=== PATIENT | male | born 1955 | race Caucasian/White ===

== ENCOUNTER 2023-11-23 14:36 | Inpatient (IN) | payer MEDICARE, SELFPAY ==
--- NOTE | ~2023-11-23 | IR_ITS ---
EXAMINATION: XR BILIARY DRAINAGE CLINICAL INFORMATION: Choledocholithiasis. Biliary obstruction. Gram-negative bacteremia COMPARISON: CT abdomen and pelvis 11/23/2023. MRCP 11/24/2023 Medications for conscious sedation: The patient received intravenous conscious sedation under my direct supervision. A registered nurse monitored the patient and the patient's vital signs throughout the procedure. The total sedation was 50 minutes utilizing fentanyl and Versed. DOSE: 204 MGY, 10.4 MIN FT TECHNIQUE/FINDINGS: Informed consent was obtained following a discussion of risks and benefits of the procedure with the patient. The patient was placed supine the fluoroscopy table in the anterior and right lateral abdomen was sterilely prepped and draped. Preliminary ultrasound demonstrates moderate intrahepatic biliary ductal dilatation. A site on the anterior abdominal wall just below the xiphoid was marked. Following the administration of 1% lidocaine for local anesthesia, a left peripheral biliary duct was accessed with a single stick using a 21-gauge needle under direct ultrasound guidance. Cholangiogram demonstrates moderate intrahepatic biliary ductal dilatation with severe dilatation of the common bile duct. A filling defect is seen in concordance with known stone. The needle was exchanged for a transitional dilator over a 0.018 guidewire. The inner dilators and guidewire were removed. A 4 [place] hockey-stick catheter and Glidewire were negotiated down the common bile duct, across the ampulla and into the duodenum. Position was confirmed with contrast injection. A 0.035 Amplatz wire was inserted. After dilating the tract, an 8 [place] internal-external biliary drainage catheter was placed. The pigtails formed in the duodenum with sideholes extending across the common bile duct to the level of the confluence. Contrast injection confirms satisfactory positioning of the tube. The external portion of the tube was secured with a 3-0 suture. The catheter was maintained to gravity bag drainage. A sterile dressing was applied. Patient tolerated the procedure well with no immediate complications. IR/IR drain peritoneum IMPRESSION: Cholangiogram demonstrating moderate-severe intra-extrahepatic biliary ductal dilatation secondary to stone in concordance with findings on recent cross-sectional imaging. Successful placement of an 8 [place] internal-external biliary drainage catheter. Catheter is currently maintained to gravity bag drainage. In the near future (following resolution of elevated bilirubin and bacteremia), a capping trial may be attempted. Patient will return to IR in approximately 2 weeks for staged intervention.
--- NOTE | ~2023-11-23 | FL_ITS ---
EXAMINATION: XR FLUOROSCOPY WITH IMAGES CLINICAL INFORMATION: ERCP. COMPARISON: MRI/MRCP dated 11/24/2023. TECHNIQUE: Fluoroscopy Supervised By: Dr. Patsy Melendrez. Fluoroscopy Time: 0.3. Cumulative Dose: 5.77 mGy. DAP: 1.57 Gycm2. Images: 1. FINDINGS: The submitted image shows an endoscope, injection catheter and guidewire. FL/FL guidance in OR IMPRESSION: Intraoperative fluoroscopic guidance is provided during ERCP. Please see the patient's Operative Report for full procedural details.
--- NOTE | ~2023-11-23 | CT_ITS ---
EXAMINATION: CT ABDOMEN AND PELVIS WITH CONTRAST CLINICAL INFORMATION: RUQ, R flank pain rule out biliary disease, ureter COMPARISON: None available. TECHNIQUE: Multidetector volumetric images were obtained from the superior aspect of the liver through the pubic symphysis following administration 85 mL of Omnipaque 350 intravenous contrast. Sagittal and coronal reformatted images were obtained on the technologist's workstation. Oral contrast: No This CT examination was performed using dose optimization techniques as appropriate, variously including the following: *Automated exposure control *Adjustment of mA and/or kV according to patient size (this includes techniques or standardized protocols for targeted exams where dose is matched to indication/reason for exam; i.e. extremities or head) *Use of iterative reconstruction technique DLP: 518 mGy-cm FINDINGS: LUNG BASES: Left basilar atelectasis. No pleural effusions or consolidations. LIVER, GALLBLADDER, AND BILIARY TREE: The liver is enlarged at 21.3 cm in greatest length. There is marked intrahepatic biliary dilatation and dilatation of the common bile duct measuring 2.5 cm. Lobular soft tissue mass seen in the distal common bile duct measuring 2.4 x 1.3 cm. The gallbladder is distended with wall thickening and some minimal pericholecystic fluid. No gallstones are seen. PANCREAS: Unremarkable. SPLEEN: Spleen is enlarged at 14.3 cm with multiple calcified granulomas ADRENAL GLANDS: Unremarkable. KIDNEYS AND URETERS: Bilateral small benign Bosniak class I renal cysts are noted which require no additional imaging or follow-up. No solid renal masses are seen. The right kidney appears unremarkable. There are appearances suggestive of a left UPJ obstruction with a dilated extrarenal pelvis and associated caliectasis. No renal calculi. BLADDER: Unremarkable. GASTROINTESTINAL TRACT: The small and large bowel are unremarkable aside from scattered colonic diverticula without diverticulitis.. The appendix is not seen but there is no evidence of appendicitis evidence of appendicitis.. ABDOMINAL WALL: No significant hernia is appreciated. LYMPH NODES: No retroperitoneal lymphadenopathy. VASCULAR: Unremarkable. PELVIC VISCERA: There is moderate BPH. Seminal vesicles appear normal. OSSEOUS STRUCTURES: Mild degenerative changes present throughout the spine. There is a compression fracture involving the superior endplate of L2. 3 screws are present through the right femoral neck. CT/CT abdomen pelvis w IV con IMPRESSION: 1. Marked intrahepatic and extrahepatic biliary dilatation with a 2.4 cm soft tissue mass in the distal common bile duct. ERCP is recommended for further evaluation. 2. Distended gallbladder with wall thickening and minimal pericholecystic fluid. 3. Incidental note made of hepatosplenomegaly, colonic diverticulosis, BPH and left UPJ obstruction. Fleischner guidelines were followed.
--- NOTE | ~2023-11-23 | MR_ITS ---
EXAMINATION: MR ABDOMEN WITHOUT CONTRAST CLINICAL INFORMATION: Common bile duct dilatation. Soft tissue mass at distal common bile duct. COMPARISON: CT abdomen from 11/23/2023. TECHNIQUE: Multiplanar, multisequence MR imaging examination of the abdomen is performed on a high-field magnet. This examination includes use of heavily T2-weighted MRCP sequences. FINDINGS: LUNG BASES: No pulmonary consolidation or pleural effusion. HEPATOBILIARY: Liver has normal size and contour. No evidence of steatosis or cirrhosis. The intrahepatic ducts are dilated. Also, there appears to be periportal edema. There is layering of sludge/debris within dilated ducts. Mild gallbladder hydrops and diffuse edematous thickening of the gallbladder wall. Sludge is seen within the gallbladder lumen. Common bile duct measures up to 2.3 cm transverse diameter and contains a 1.6 cm stone within its lumen. No evidence of an obstructing ampullary mass. A relatively abrupt transition from the dilated common duct to the ampulla raises suspicion for ampullary stenosis. PANCREAS: Mildly atrophied. No pancreatic parenchymal edema or peripancreatic fluid collection. No pancreatic divisum. The pancreatic duct is normal, < 0.3 cm diameter. SPLEEN: Mild splenomegaly. 13.5 cm maximum dimension.. Calcified granulomas seen on CT imaging are not visible on this MR imaging exam. ADRENAL GLANDS: Normal. KIDNEYS: Kidneys are normal in size. There is asymmetric dilatation of the left renal collecting system. The proximal ureter is unremarkable. Findings could represent a partial ureteropelvic junction obstruction. BOWEL AND PERITONEUM: No dilated bowel loops. A duodenal diverticulum is seen adjacent to the pancreatic head. Trace amount of abdominal free fluid is noted. There is no organized collection. VASCULATURE: Atherosclerotic abdominal aorta is normal in size. Inferior vena cava is normal for noncontrast imaging examination. LYMPH NODES: No pathologic sized lymph nodes in the abdomen. SKELETAL: No acute or suspicious osseous abnormality. Multilevel degenerative arthropathy of the visualized spine. Chronic mild height loss of the L2 vertebral body. MR/MR MRCP IMPRESSION: * The common duct and intrahepatic ducts are dilated. This no evidence of an obstructing mass of the pancreatic head or ampullary region. Therefore, consider possibility of papillary stenosis. * Choledocholithiasis is noted. * There is nonspecific gallbladder wall edema as well as periportal edema. Differential diagnostic considerations would include cholecystitis, cholangitis and/or hepatitis.
[2023-11-23 15:18] VITALS: BP 131/69; BP 150/80; PULSE 109; PULSE 120; RESP 18; O2SAT 98
--- NOTE | 2023-11-23 16:00 | ED.ABDPAIN ---
HPI - Abdominal Pain General Chief Complaint: Abdominal Pain Stated Complaint: HIGH BP OF 200 SYS FROM SNF, NOW 150/80 PER EMS Time Seen by Provider: 11/23/23 15:50 Source: patient Mode of arrival: EMS Limitations: no limitations History of Present Illness HPI narrative: 68-year-old male with status post right hip fracture/repair 1 month prior currently residing at custodial facility for rehab who presents emergency department for evaluation of right upper quadrant , right flank pain and an elevated systolic blood pressure in the 200 range. Patient states that before breakfast he started to get right-sided abdominal pain. He points to his right upper quadrant when asked to localize the pain. He states the pain does radiate to his back. He states the pain is a constant pain which waxes and wanes in intensity and varies from 3/10 to 6/10. Patient had associated chills and nausea. He denied sore throat, cough, chest pain, shortness of breath, vomiting, diarrhea, frequency, urgency or dysuria. He states this is 1st episode of this type of pain. Past surgical history does include appendectomy and recent right hip fracture status post repair Related Data Allergies Allergy/AdvReac Type Severity Reaction Status Date / Time No Known Allergies Allergy Verified 11/23/23 15:21 Review of Systems Review of Systems Yes all other systems are reviewed and are negative COUNT INCLUDES THE [facility] Past Medical History COUNT INCLUDES THE [facility] Narrative: Social history: He is a former smoker and stop smoking 2 years prior. The patient states he does not drink alcohol or use drugs. Social History Social History Alcohol intake: former Smoked in Last 30 Days: No Use of substances other than those prescribed or required for medical reasons: No Advance Directives: No Advance Directives Information Provided: No Physical Exam ED Vital Signs: Vital Signs - 24 hr 11/23/23 15:18 11/23/23 16:17 11/23/23 18:00 Temperature 98.8 F 98.9 F Pulse Rate 109 H 105 H 93 Respiratory Rate 18 16 18 Blood Pressure 131/69 142/78 H 103/64 Pulse Oximetry 98 96 98 Oxygen Delivery Method Room Air Room Air Room Air 11/23/23 19:56 Temperature 98.0 F Pulse Rate 84 Respiratory Rate 16 Blood Pressure 97/63 Pulse Oximetry 95 Oxygen Delivery Method Room Air BMI result Body Mass Index 20.0 Vital signs revealed an elevated heart rate of 109 otherwise were unremarkable. Exam: General: Awake, in [id number] distress secondary to his abdominal pain. Head: Normocephalic, atraumatic EENT: PERRL, Lids normal, sclera normal, conjunctiva normal, nose normal , ears normal, throat without erythema or exudates Neck: Supple, no adenopathy Lung: breath sounds symmetric, no wheezing, rales or rhonchi Chest: symmetric movement, nontender Heart: regular rate and rhythm, normal S1, S2 no murmurs or rubs Abdomen: Moderate right upper quadrant tenderness, negative Hernandes sign, [id number] epigastric tenderness, mild diffuse tenderness. Normoactive bowel sounds. No voluntary or involuntary guarding, no rebound Back: no vertebral tenderness, mild to moderate right CVA tenderness Extremities: no deformities, moves all extremities symmetrically Neuro: Awake, alert, oriented, normal speech, cranial nerves intact, moves all extremities symmetrically Psych: Pleasant, cooperative Medical Decision Making Medical Decision Making MDM Narrative: 68-year-old male with a history of appendectomy, right hip fracture status post repair 1 month prior currently in his custodial facility who presents to emergency department for evaluation of right upper quadrant pain and right flank pain which began this morning, pain is been constant, waxing and waning intensity from 3/10 to 6/10 associated with chills and nausea. This is the patient's 1st episode of this type of pain. Vital signs did reveal an elevated heart rate otherwise unremarkable. Physical examination did reveal mild diffuse abdominal tenderness with increased tenderness in the right upper quadrant epigastric area with a negative Hernandes sign. Differential diagnosis: ?Includes but is not limited to cholecystitis, biliary colic, renal colic, ureteral stone, pancreatitis, anemia, electrolyte abnormalities Following evaluation was ordered: CBC, CMP, lactic acid, PTT, troponin, urinalysis, CT scan of the abdomen pelvis with IV contrast Patient was initially treated with the following: Toradol 15 mg IV, Zofran 4 mg IV Course: 19:07 Patient's pain initially improved with the above treatment however he required a dose of morphine 4 mg IV Patient's laboratory evaluation was consistent with biliary obstruction and concerning for possible infection given 20% bands, therefore he was given Zosyn 4.[address] scan abdomen pelvis with IV contrast revealed marked intrahepatic and extrahepatic biliary dilatation with a 2.4 cm soft tissue mass in the distal common bile duct. Distended gallbladder with wall thickening and minimal pericholecystic fluid. There was also several incidental findings: hepatosplenomegaly, colonic diverticulosis, BPH and left UPJ obstruction. I did discuss the patient's presentation over tiger text with the on-call grave cleaner, Dr. Mancuso who recommended MRCP, keeping the patient NPO after midnight for ERCP I did discuss the patient's presentation over tiger text with the on-call surgeon, Dr. Tillman. He suspects that the patient may have cholangiocarcinoma and he agrees with Dr. Mancuso's is recommendations. He states that he will follow the patient as well. I did discuss the patient's presentation over tiger text with the covering hospitalist, Dr. Elaine and she accepted the patient onto the hospitalist service. Please note, the patient's elevated bilirubin is not caused by infection but is related to biliary obstructions Admission/Observation Consideration of admission/observation: Escalation of care including admission/observation considered Consult Healthcare Provider Management of the patient was discussed with: Hospitalist and Banquet Line Cook (Surgeon on-call, Dr. Tillman, GI doctor on-call Dr. LIVE) Lab Data MDM Lab Attestation statement: I reviewed the patient's lab results. My interpretation patient's laboratory evaluation is as follows: Elevated WBC 26981 with 75% neutrophils and 20% bands. Elevated glucose 123 elevated AST, ALT and alkaline phosphatase at 260, 142 and 818. Total bili was elevated 3.7. Direct bilirubin was elevated 3.0. Lipase was normal 11/23/23 16:09 11/23/23 16:09 Labs: Lab Results 11/23/23 11/23/23 Range/Units 16:09 16:59 WBC 15.6 H (4.8-10.8) X10*3/uL RBC 4.35 L (4.60-5.80) X10*6/uL Hgb 13.7 L (14.0-18.0) g/dl Hct 40.0 L (42.0-52.0) % MCV 92.0 (80.0-98.0) fL MCH 31.5 (27.0-33.0) pg MCHC 34.3 (31.0-36.0) g/dl RDW 13.5 (11.0-16.0) % Plt Count 244 (160-400) X10*3/uL MPV 10.1 (9.4-12.4) fL Immature Gran % (Auto) Cancelled Neut % (Auto) Cancelled Lymph % (Auto) Cancelled [place] % (Auto) Cancelled Eos % (Auto) Cancelled Baso % (Auto) Cancelled Lymph # (Auto) Cancelled [place] # (Auto) Cancelled Eos # (Auto) Cancelled Baso # (Auto) Cancelled Abs Immat Gran (auto) Cancelled Absolute Neuts (auto) Cancelled Absolute Nucleated RBC 0.000 (0.0-0.012) X10*3/uL Nucleated RBC % (auto) 0.0 (0.0-0.2) /100WBC Neutrophils % (Manual) 75 H (45-73) % Band Neutrophils % 20 H (3-5) % Lymphocytes % (Manual) 1 L (20-40) % Monocytes % (Manual) 4 (2-11) % Abs Neuts (Manual) 14.8 H (2.0-8.3) X10*3/uL Lymphocytes # (Manual) 0.2 L (1.2-4.9) X10*3/uL Monocytes # (Manual) 0.6 (0.1-1.2) X10*3/uL Toxic Vacuolation PRESENT Platelet Estimate NORMAL (NORMAL) Plt Morphology Comment NORMAL RBC Morphology NORMAL Smear Tech's Comments MANUAL DIFF APTT 33.2 (26.0-36.8) SEC Sodium 135 (135-145) mmol/L Potassium 4.0 (3.3-5.1) mmol/L Chloride 97 (96-108) mmol/L Carbon Dioxide 25 (22-29) mmol/L Anion Gap 17 (12-20) BUN 12 (9-16) mg/dL Creatinine 0.73 (0.5-1.4) mg/dL Estim Creat Clear Calc 114.1 Estimated GFR > 60 Random Glucose 123 H (60-115) mg/dL Lactic Acid 1.7 (0.5-2.0) mmol/L Calcium 9.4 (8.4-10.2) mg/dL Total Bilirubin 3.7 H (0.0-1.0) mg/dL Direct Bilirubin 3.0 H (0.0-0.5) mg/dL AST 260 H (5-37) U/L ALT 142 H (0-40) U/L Alkaline Phosphatase 818 H (39-117) U/L Troponin I High Sens 4.7 (<3.5-35.0) ng/L Total Protein 6.7 (6.5-8.0) g/dL Albumin 3.3 L (3.5-5.0) g/dL Lipase 20 (8-78) U/L Urine Color Dark Yellow Urine Appearance Clear Urine pH 5.5 (5.0-9.0) Ur Specific [place] 1.015 (1.005-1.025) Urine Protein Negative (Neg-Trace) mg/dL Urine Glucose (UA) Negative (Negative) mg/dL Urine Ketones Negative (Negative) mg/dL Urine Blood Negative (Negative) Urine Nitrite Negative (Negative) Ur Leukocyte Esterase Trace H (Negative) Urine RBC 0-2 (0-2) /HPF Urine WBC 0-5 (0-5) /HPF Ur Squamous Epith Cells 0-2 (0-2) /HPF Urine Bacteria None Seen (None Seen) Hyaline Casts 0-2 (0-2) /LPF Independent Interpretation I performed an independent interpretation of an: EKG Radiology Impression Discussion of test interpretation with radiology: I have reviewed the radiologist's reading. Radiologist Impression: CT abdomen pelvis w IV con IMPRESSION: 1. Marked intrahepatic and extrahepatic biliary dilatation with a 2.4 cm soft tissue mass in the distal common bile duct. ERCP is recommended for further evaluation. 2. Distended gallbladder with wall thickening and minimal pericholecystic fluid. 3. Incidental note made of hepatosplenomegaly, colonic diverticulosis, BPH and left UPJ obstruction. Fleischner guidelines were followed. Dictated By: Sheldon Davidson MD Medications Administered Generic Name Dose Route Start Last Admin Trade Name Freq PRN Reason Stop Dose Admin Sodium Chloride 1,000 mls @ 80 mls/hr 11/23/23 20:45 11/23/23 20:52 Ns IVCONT 80 mls/hr .[id number] ODELL Administration Discontinued Medications Generic Name Dose Route Start Last Admin Trade Name Freq PRN Reason Stop Dose Admin Sodium Chloride 1,000 mls @ 999 mls/hr 11/23/23 16:00 11/23/23 18:06 Ns IV 11/23/23 17:00 Infused .Q1H1M STA Infusion Piperacillin Sod/Tazobactam 100 mls @ 200 mls/hr 11/23/23 17:24 11/23/23 19:36 Sod 4.5 gm/ Sodium Chloride IV 11/23/23 17:53 Infused ONCE ONE Infusion Iohexol 100 ml 11/23/23 17:06 11/23/23 17:07 Iohexol 350 Mg/Ml 100 Ml Infus..Btl IV 11/23/23 17:07 85 ml ONCE ONE Administration Ketorolac Tromethamine 15 mg 11/23/23 16:00 11/23/23 16:15 Ketorolac Tromethamine 15 Mg/Ml Vial IVPUSH 11/23/23 16:01 15 mg ONCE STA Administration Morphine Sulfate 4 mg 11/23/23 17:32 11/23/23 17:40 Morphine Sulfate 4 Mg/Ml Cartridge IVPUSH 11/23/23 17:33 4 mg ONCE STA Administration Protocol Morphine Sulfate 4 mg 11/23/23 19:58 11/23/23 20:55 Morphine Sulfate 4 Mg/Ml Cartridge IVPUSH 11/23/23 19:59 4 mg ONCE STA Administration Protocol Ondansetron HCl 4 mg 11/23/23 16:00 11/23/23 16:15 Ondansetron Hcl 4 Mg/2 Ml Vial IVPUSH 11/23/23 16:01 4 mg ONCE ONE Administration Critical Care Time Critical Care Time Critical Care Time: Yes Total Critical Care Time: 40 Attestation: Critical Care: The patient was critically ill with a high probability of imminent or life threatening deterioration. I spent greater than 30 minutes of discontinuous time evaluating the patient,delivering critical care at the bedside, discussing and evaluating pertinent data with consultants. Critical care time does not include time spent performing separately billable procedures or teaching. Total time spent performing critical care was 40 minutes. Discharge Plan Discharge Clinical Impression: Biliary disease with obstruction, Acute cholangitis Patient Disposition: Admitted As Inpatient
[2023-11-23] MEDS: 0.9 % Sodium Chloride 1,000 ML 999 ML IV (16:10)
[2023-11-23] MEDS: ondansetron HCL 4 MG/2 ML VIAL IVPUSH (16:15)
[2023-11-23] MEDS: Ketorolac Tromethamine 15 MG/ML VIAL IVPUSH (16:15)
[2023-11-23 16:17] VITALS: BP 142/78; PULSE 105; RESP 16; TEMP 37.1; O2SAT 96
[2023-11-23 16:17] LABS: Hemoglobin 13.7 g/dl (14.0-18.0); Mean Corpuscular HGB Conc 34.3 g/dl (31.0-36.0); Mean Corpuscular Hemoglobin 31.5 pg (27.0-33.0); Mean Platelet Volume 10.1 fL (9.4-12.4); Platelet Count 244 X10*3/uL (160-400); Red Blood Count 4.35 X10*6/uL (4.60-5.80); Red Cell Distribution Width 13.5 % (11.0-16.0); White Blood Count 15.6 X10*3/uL (4.8-10.8)
[2023-11-23 16:28] LABS: Lactic Acid 1.7 mmol/L (0.5-2.0)
[2023-11-23 16:34] LABS: Alanine Aminotransferase 142 U/L (0-40); Albumin Level 3.3 g/dL (3.5-5.0); Alkaline Phosphatase 818 U/L (39-117); Anion Gap 17 (12-20); Aspartate Amino Transferase 260 U/L (5-37); Bilirubin Total 3.7 mg/dL (0.0-1.0); Blood Urea Nitrogen 12 mg/dL (9-16); Calcium 9.4 mg/dL (8.4-10.2); Carbon Dioxide 25 mmol/L (22-29); Chloride 97 mmol/L (96-108); Creatinine Clr Calc Pharmacy 114.1; Estimated Glomerular Filt Rate > 60; Glucose Random 123 mg/dL (60-115); Sodium 135 mmol/L (135-145); Total Protein 6.7 g/dL (6.5-8.0)
[2023-11-23 16:35] LABS: Partial Thromboplastin Time 33.2 SEC (26.0-36.8)
[2023-11-23 16:38] LABS: Troponin-I High Sensitivity 4.7 ng/L (<3.5-35.0)
[2023-11-23 16:50] LABS: SLIDE REVIEW MANUAL DIFF
[2023-11-23 16:58] LABS: Neutrophils Percent Manual 75 % (45-73)
[2023-11-23 17:04] LABS: Band Neutrophils Percent 20 % (3-5); Lymphocytes Absolute Manual 0.2 X10*3/uL (1.2-4.9); Lymphocytes Percent Manual 1 % (20-40); Monocytes Absolute Manual 0.6 X10*3/uL (0.1-1.2); Monocytes Percent Manual 4 % (2-11); Neutrophils Absolute Manual 14.8 X10*3/uL (2.0-8.3)
[2023-11-23 17:06] LABS: Platelet Estimate NORMAL (NORMAL); Platelet Morphology Comment NORMAL; RBC Morphology NORMAL; Toxic Vacuolation PRESENT
[2023-11-23] MEDS: iohexoL 350 MG/ML 100 ML INFUS..BTL IV (17:07)
[2023-11-23 17:13] LABS: Appearance Urine Clear; Color Urine Dark Yellow; Glucose Urine UA Negative (Negative); Leukocyte Esterase Urine Trace (Negative); Nitrite Urine Negative (Negative); PH 5.5 (5.0-9.0); Specific Gravity - Urine 1.015 (1.005-1.025); UMIC TRIGGER UACC YES; Urine Blood Negative (Negative); Urine Ketones Negative (Negative); Urine Protein Negative (Neg-Trace)
--- NOTE | 2023-11-23 17:22 | PC.NURSE ---
Patient returned from CT, reports pain has improved, repositioned in bed
[2023-11-23] MEDS: Morphine Sulfate 4 MG/ML CARTRIDGE IVPUSH ×2 (17:40→20:55)
[2023-11-23] MEDS: Piperacillin Sodium/Tazobactam 4.5 GM in 0.9 % Sodium Chloride 100 ML IV (17:59)
[2023-11-23 18:00] VITALS: BP 103/64; PULSE 93; RESP 18; TEMP 37.2; O2SAT 98
[2023-11-23 18:02] LABS: Bacteria Urine None Seen (None Seen); Hyaline Casts Urine 0-2 /LPF (0-2); RBC Urine 0-2 /HPF (0-2); Squamous Epithelial Cell Urine 0-2 /HPF (0-2); WBC Urine 0-5 /HPF (0-5)
--- NOTE | 2023-11-23 18:08 | PC.NURSE ---
patient transferred to hospital bed, medicated per sep , reports improved pain control
[2023-11-23 18:34] LABS: Lipase 20 U/L (8-78)
--- NOTE | 2023-11-23 19:10 | PC.NURSE ---
this rn assumed care of pt, pt resting in hospital bed, no acute distress noted. denies pain at this time.
--- NOTE | 2023-11-23 19:47 | ECG_ITS ---
Test Reason : ABD PAIN Blood Pressure : / mmHG Vent. Rate : 083 BPM Atrial Rate : 083 BPM P-R Int : 134 ms QRS Dur : 090 ms QT Int : 350 ms P-R-T Axes : 017 -43 039 degrees QTc Int : 411 ms Normal sinus rhythm Left axis deviation Abnormal ECG No previous ECGs available Referred By: Kt Tavera Electronically Signed By:Iker Kapoor
--- NOTE | 2023-11-23 19:49 | PM.IMHP ---
History of Present Illness Date of Service: 11/23/23 Attending physician on admission: Rafi Tan Chief Complaint: Abdominal pain Pt is a -year-old female with a PMH significant for?right hip fracture s/p surgical repair 1 month prior currently at [facility], appendectomy, and cervical fracture s/p C4-C5 fusion in 1979 not on home medications who presents to the ED with?RUQ pain. Patient states he woke up in normal state of health and ate breakfast without incident. Shortly before noon patient began developing discomfort in his right upper quadrant and right flank. After eating lunch discomfort developed into outright pain and patient developed sudden onset of nausea and shaking chills. Was seen by nursing at [facility] and sent to the ED for further evaluation. Patient states pain has been constant since onset, though waxing and waning in intensity. Wraps around right flank and to back. Denies vomiting. Patient denies similar symptoms in the past. No chest pain/pressure, palpitations. No shortness of breath. In the ED pt was tachycardic up to 109 with other vital signs WNL. Labs were significant for leukocytosis of 15.6, bands 20%, bilirubin 3.7, AST 260, ALT 142, and alk-phos 818. No significant electrolyte abnormalities. Renal function WNL. UA negative for UTI. CT?of abdomen and pelvis found marked intrahepatic and extrahepatic biliary dilation with a 2.4 cm soft tissue mass in distal CBD, as well as distended gallbladder and wall thickening with minimal pericholecystic fluid. Incidentally noted hepatosplenomegaly, diverticulosis without diverticulitis, BPH, and left UPJ obstruction. EKG demonstrated normal sinus rhythm without evidence of significant ST elevations or depressions. Pt was treated with IVF, ondansetron, ketorolac, morphine, and Zosyn. Pt will be admitted to the hospital for treatment and further evaluation of acute cholangitis with sepsis. Review of Systems Review of Systems: RUQ tenderness wrapping around to pack Nausea but no vomiting Rigors Denies chest pain/pressure, palpitations No shortness of breath [facility] Medical History (Updated 11/23/23 @ 21:17 by RYNE Givens) Closed right hip fracture Surgical History (Updated 11/23/23 @ 21:17 by RYNE Givens) History of appendectomy Social History Alcohol intake: former Smoked in Last 30 Days: No Use of substances other than those prescribed or required for medical reasons: No Advance Directives: No Advance Directives Information Provided: No Meds Allergies Allergy/AdvReac Type Severity Reaction Status Date / Time No Known Allergies Allergy Verified 11/23/23 15:21 Physical Exam Vital Signs and Narrative: Vital Signs: Last Vital Signs Temp 98.9 F 11/23/23 18:00 Pulse 93 11/23/23 18:00 Resp 18 11/23/23 18:00 BP 103/64 11/23/23 18:00 Pulse Ox 98 11/23/23 18:00 O2 Del Method Room Air 11/23/23 18:00 BMI result Body Mass Index 20.0 Constitutional: Alert, in no acute distress. Mental Status: Oriented to person, place and time. Eyes: Pupils are equal, round, and reactive to light. Ear, Nose, and Throat: Oropharynx clear, mucous membranes moist. Ears and nose without deformities. Trachea midline. Respiratory: Clear to auscultation bilaterally. No wheezing, rales, or rhonchi. Cardiovascular: S1, S2 regular. No murmurs, rubs, or gallops. Gastrointestinal: Abdomen soft, non-distended, moderate RUQ tenderness, mild diffuse tenderness. No rebound tenderness. Normal bowel sounds. Neurologic: Cranial nerves II-XII are grossly intact bilaterally. No focal neurological deficits. Moves all extremities spontaneously. Skin: Warm, dry. Musculoskeletal: Mild right hip tenderness. Extremities: No edema. Psychiatric: Normal mood and affect. Results Labs 11/23/23 16:09 11/23/23 16:09 Labs: Laboratory Results - last 24 hr 11/23/23 11/23/23 16:09 16:59 MCV 92.0 MCH 31.5 MCHC 34.3 RDW 13.5 Plt Count 244 MPV 10.1 Immature Gran % (Auto) Cancelled Neut % (Auto) Cancelled Lymph % (Auto) Cancelled [place] % (Auto) Cancelled Eos % (Auto) Cancelled Baso % (Auto) Cancelled Lymph # (Auto) Cancelled [place] # (Auto) Cancelled Eos # (Auto) Cancelled Baso # (Auto) Cancelled Abs Immat Gran (auto) Cancelled Absolute Neuts (auto) Cancelled Absolute Nucleated RBC 0.000 Nucleated RBC % (auto) 0.0 Neutrophils % (Manual) 75 H Band Neutrophils % 20 H Lymphocytes % (Manual) 1 L Monocytes % (Manual) 4 Abs Neuts (Manual) 14.8 H Lymphocytes # (Manual) 0.2 L Monocytes # (Manual) 0.6 Toxic Vacuolation PRESENT Platelet Estimate NORMAL Plt Morphology Comment NORMAL RBC Morphology NORMAL Smear Tech's Comments MANUAL DIFF APTT 33.2 Anion Gap 17 Estim Creat Clear Calc 114.1 Estimated GFR > 60 Random Glucose 123 H Lactic Acid 1.7 Calcium 9.4 Total Bilirubin 3.7 H Direct Bilirubin 3.0 H AST 260 H ALT 142 H Alkaline Phosphatase 818 H Troponin I High Sens 4.7 Total Protein 6.7 Albumin 3.3 L Lipase 20 Urine Color Dark Yellow Urine Appearance Clear Urine pH 5.5 Ur Specific [place] 1.015 Urine Protein Negative Urine Glucose (UA) Negative Urine Ketones Negative Urine Blood Negative Urine Nitrite Negative Ur Leukocyte Esterase Trace H Urine RBC 0-2 Urine WBC 0-5 Ur Squamous Epith Cells 0-2 Urine Bacteria None Seen Hyaline Casts 0-2 Imaging Radiologist's Impressions: Impressions Abdomen/Pelvis CT 11/23/23 17:11 IMPRESSION: 1. Marked intrahepatic and extrahepatic biliary dilatation with a 2.4 cm soft tissue mass in the distal common bile duct. ERCP is recommended for further evaluation. 2. Distended gallbladder with wall thickening and minimal pericholecystic fluid. 3. Incidental note made of hepatosplenomegaly, colonic diverticulosis, BPH and left UPJ obstruction. Fleischner guidelines were followed. Assessment and Plan (1) Acute cholangitis: Status: Acute (2) Biliary disease with obstruction: Status: Acute Plan Pt is a -year-old female with a PMH significant for?right hip fracture s/p surgical repair 1 month prior currently at [facility], appendectomy, and cervical fracture s/p C4-C5 fusion in 1979 not on home medications who presents to the ED with?RUQ pain. Pt will be admitted to the hospital for treatment and further evaluation of acute cholangitis with sepsis. Acute cholangitis Patient with RUQ pain, nausea, and rigors since this afternoon CT of abdomen and pelvis found marked intrahepatic and extrahepatic biliary dilation with 2.4 cm soft tissue mass in distal CBD; significant transaminitis Concerning for cholangiocarcinoma Patient meets sepsis criteria: Tachycardia and leukocytosis; lactic acid WNL at 1.7 Patient received IVF and started on broad-spectrum antibiotics in the ED Will treat with Zosyn, started 11/23/2023 Analgesics for pain management, antiemetics, IVF Will order MRCP, per GI Patient will be made NPO GI consult for likely ERCP in the morning Follow cultures Right hip fracture S/P surgical ORIF, currently at [facility] Pt has been made weight-bearing as tolerated at [facility] Incidental CT findings CT of abdomen also found BPH and UPJ obstruction Should follow-up outpatient Full Code Attending:?Dr. Elaine DVT Prophylaxis: Penumatic boots Pt will require a hospitalization of at least two nights for treatment of?acute cholangitis with sepsis. Pt will require hospitalization for treatment with IV antibiotics, fluids, antiemetics, and analgesics, as well as specialist consultation with GI with likely ERCP in the morning. Quality Stroke Does the patient have a stroke diagnosis?: No VTE Prior VTE?: No VTE Risk Level:: Medical - moderate - high VTE Device Contraindication: N/A - Device Ordered VTE Drug Contraindication: Treatment Not Indicated
[2023-11-23 19:56] VITALS: BP 97/63; PULSE 84; RESP 16; TEMP 36.7; O2SAT 95
[2023-11-23] MEDS: 0.9 % Sodium Chloride 1,000 ML 80 ML IVCONT (20:52)
[2023-11-23 20:56] VITALS: BP 99/63; PULSE 95; RESP 17; TEMP 36.8; O2SAT 95
--- NOTE | 2023-11-23 20:57 | PC.NURSE ---
pt medicated per mar for 710 abdominal pain.
[2023-11-23 22:07] LABS: Procalcitonin 6.56 ng/mL
[2023-11-23 23:41] VITALS: BP 111/70; PULSE 75; RESP 16; TEMP 36.7; O2SAT 99
[2023-11-24] VITALS (7 sets, daily range): BP systolic 92–116; BP diastolic 58–69; PULSE 68–82; RESP 16–20; TEMP 36.2–36.7; O2SAT 96–98
[2023-11-24] MEDS: Piperacillin Sodium/Tazobactam 3.375 GM in 0.9 % Sodium Chloride 50 ML IV ×5 (01:21→23:47)
[2023-11-24] MEDS: Morphine Sulfate 4 MG/ML CARTRIDGE IVPUSH ×2 (03:00→07:44)
[2023-11-24 05:29] LABS: Hemoglobin 13.2 g/dl (14.0-18.0); Mean Corpuscular Hemoglobin 30.4 pg (27.0-33.0); Mean Corpuscular Volume 92.2 fL (80.0-98.0); Mean Platelet Volume 11.7 fL (9.4-12.4); Platelet Count 214 X10*3/uL (160-400); Red Blood Count 4.34 X10*6/uL (4.60-5.80); Red Cell Distribution Width 13.8 % (11.0-16.0); White Blood Count 15.8 X10*3/uL (4.8-10.8)
[2023-11-24 06:01] LABS: Alanine Aminotransferase 117 U/L (0-40); Albumin Level 2.9 g/dL (3.5-5.0); Alkaline Phosphatase 654 U/L (39-117); Anion Gap 17 (12-20); Aspartate Amino Transferase 158 U/L (5-37); Blood Urea Nitrogen 15 mg/dL (9-16); Calcium 8.8 mg/dL (8.4-10.2); Carbon Dioxide 24 mmol/L (22-29); Chloride 101 mmol/L (96-108); Creatinine Clr Calc Pharmacy 108.2; Estimated Glomerular Filt Rate > 60; Glucose Random 101 mg/dL (60-115); Potassium 4.9 mmol/L (3.3-5.1); Sodium 137 mmol/L (135-145); Total Protein 5.9 g/dL (6.5-8.0)
[2023-11-24 06:13] LABS: Carcinoembryonic Antigen < 1.73 ng/mL
[2023-11-24] MEDS: 0.9 % Sodium Chloride 1,000 ML 80 ML IVCONT ×2 (07:47→20:20)
[2023-11-24] MEDS: 0.9 % Sodium Chloride Flush 3 ML SYRINGE IVFLUSH ×2 (07:48→23:46)
--- NOTE | 2023-11-24 09:11 | P.CNGI_ITS ---
History of Present Illness Data of Consult Service Date: 11/24/23 Requesting physician: Kt Tavera Primary Care Provider: Rosy Dahl MD [facility] Reason for consult: Ascending cholangitis This is a 68-year-old gentleman with past medical history of recent hip surgery who presented to the hospital for right upper quadrant pain and chills. Patient reports that the day of admission he woke up with vague abd discomfort which got significantly worse after having lunch. Assoc with chills and nausea. This prompted ER visit. On arrival to the hospital, he was noted to be tachycardic but afebrile. Labs were significant for leukocytosis with 20% bands, LFTs with bilirubin of 3.7, that has further increased to 5.0 today with elevated transaminases and alkaline phosphatase. CT abdomen pelvis with IV contrast shows mild biliary tree dilation with CBD of 2.5 cm with question soft tissue density in the distal bile duct. Patient also has enlarged spleen with calcified granuloma. At the time of bedside eval, pt reports improvement in abd pain - albeit has been NPO since arrival. No prev hx of biliary colic. To note - pt used to be a practising dentist 20y ago and has a fairly good understanding of current medical condition. Review of Systems 2 Review of Systems: Yes all other systems are reviewed and are negative PMFSH Past Medical History Medical History (Updated 11/24/23 @ 21:07 by Catherine Mancuso MD) Closed right hip fracture Surgical History Surgical History (Updated 11/23/23 @ 21:17 by RYNE Givens) History of appendectomy Social History Social History Household Members: None Household Members Other:: at rehab facility Housing: Alf Do you presently have visiting nurse or other home services: No Alcohol intake: former Patient Tobacco Use Status: Never used Tobacco service: No Meds Allergies Allergy/AdvReac Type Severity Reaction Status Date / Time No Known Allergies Allergy Verified 11/23/23 15:21 Active Medications: Current Medications Acetaminophen (Acetaminophen 325 Mg Tablet) 650 mg PO Q6H PRN PRN Reason: Pain, Mild (Pain Scale 1-3) Benzonatate (Benzonatate 100 Mg Capsule) 100 mg PO TID PRN PRN Reason: Cough Docusate Sodium (Docusate Sodium 100 Mg Capsule) 100 mg PO DAILY PRN PRN Reason: Constipation Sodium Chloride (Ns) 1,000 mls @ 80 mls/hr IVCONT .[id number] [facility] Last Admin: 11/24/23 07:47 Dose: 80 mls/hr Piperacillin Sod/Tazobactam (Sod 3.375 gm/ Sodium Chloride) 50 mls @ 100 mls/hr IV Q6H [facility] Last Admin: 11/24/23 06:27 Dose: 100 mls/hr Melatonin (Melatonin 3 Mg Tablet) 6 mg PO BEDTIME PRN PRN Reason: Insomnia Morphine Sulfate (Morphine Sulfate 4 Mg/Ml Cartridge) 4 mg IVPUSH Q4H PRN; Protocol PRN Reason: Pain, Severe (Pain Scale 7-10) Last Admin: 11/24/23 07:44 Dose: 4 mg Ondansetron HCl (Ondansetron Hcl 4 Mg/2 Ml Vial) 4 mg IVPUSH Q8H PRN PRN Reason: Nausea and Vomiting Sodium Chloride (0.9 % Sodium Chloride Flush 3 Ml Syringe) 3 ml IVFLUSH QSHIFT [facility] Last Admin: 11/24/23 07:48 Dose: 3 ml Home Medications ?Medication ?Instructions ?Recorded ?Confirmed ?Last Taken ?Type aspirin 500 mg tablet 1,000 mg PO Q4H PRN Pain 11/24/23 11/24/23 10/17/23 History Physical Exam 2 Vital Signs: Vital Signs: Last Vital Signs Temp 97.9 F 11/24/23 05:59 Pulse 82 11/24/23 08:27 Resp 18 11/24/23 08:27 BP 99/59 L 11/24/23 08:27 Pulse Ox 98 11/24/23 08:27 O2 Del Method Room Air 11/24/23 05:59 BMI result Body Mass Index 20.0 Elderly male Mild icterus Abd soft, tender, nondistended No resp distress No JOI Results Labs 11/24/23 04:33 11/24/23 04:33 Labs: Short CBC 11/23/23 11/24/23 Range/Units 16:09 04:33 WBC 15.6 H 15.8 H (4.8-10.8) X10*3/uL Hgb 13.7 L 13.2 L (14.0-18.0) g/dl Hct 40.0 L 40.0 L (42.0-52.0) % Plt Count 244 214 (160-400) X10*3/uL BMP 11/23/23 11/24/23 16:09 04:33 Sodium 135 137 Potassium 4.0 4.9 D Chloride 97 101 Carbon Dioxide 25 24 BUN 12 15 Creatinine 0.73 0.77 Calcium 9.4 8.8 D Liver Function 11/23/23 11/24/23 Range/Units 16:09 04:33 Total Bilirubin 3.7 H 5.0 H (0.0-1.0) mg/dL Direct Bilirubin 3.0 H (0.0-0.5) mg/dL AST 260 H 158 H (5-37) U/L ALT 142 H 117 H (0-40) U/L Alkaline Phosphatase 818 H 654 H (39-117) U/L Albumin 3.3 L 2.9 L (3.5-5.0) g/dL Urine 11/23/23 Range/Units 16:59 Urine Color Dark Yellow Urine Appearance Clear Urine pH 5.5 (5.0-9.0) Ur Specific [place] 1.015 (1.005-1.025) Urine Protein Negative (Neg-Trace) mg/dL Urine Glucose (UA) Negative (Negative) mg/dL Microbiology Microbiology Results: Microbiology 11/23/23 17:58 Blood - Venous Blood Culture - Preliminary Prelim: GNR Gram Stain only 11/23/23 17:58 Blood - Venous Blood Culture - Preliminary Prelim: GNR Gram Stain only Assessment and Plan (1) Acute cholangitis: Status: Acute (2) Dilated cbd, acquired: Status: Acute (3) Choledocholithiasis: Status: Acute Plan Overall assessment consistent with choledocho leading to biliary obstruction and ascending cholangitis. Other Ddx include bile duct adenoma/mass though typically onset not this abrupt. Plan: - IVF and Abx as per sepsis protocol - MRCP pending - ERCP tentatively on 11/24 to be done by the lelia Melendrez - Please keep the pt NPO - Surgery consultation Recommendations were relayed to ER provider on 11/23/23. Thank you for allowing me to participate in his care. Please do not hesitate to reach out with questions or concerns. UPDATE: MRI reviewed: The intrahepatic ducts are dilated. Also, there appears to be periportal edema. There is layering of sludge/debris within dilated ducts. Mild gallbladder hydrops and diffuse edematous thickening of the gallbladder wall. Sludge is seen within the gallbladder lumen. Common bile duct measures up to 2.3 cm transverse diameter and contains a 1.6 cm stone within its lumen. No evidence of an obstructing ampullary mass. A relatively abrupt transition from the dilated common duct to the ampulla raises suspicion for ampullary stenosis. PANCREAS: Mildly atrophied. No pancreatic parenchymal edema or peripancreatic fluid collection. No pancreatic divisum. The pancreatic duct is normal, < 0.3 cm diameter. Procedures Date of Service Date of Service: 11/24/23
[2023-11-24 09:48] LABS: HBS Num1 5.46 mIU/mL (0-7.99); HBc Num1 0.12 S/CO (0.00-0.79); HBsAGNum1 0.32 S/CO (0.00-0.99); Hepatitis A Antibody IgM 0.15 Index (0-0.79); Hepatitis B Core Antibody Nonreactive (Nonreactive); Hepatitis B Surface Antigen Negative (Negative); ~HepC Num1 1.31 S/CO (0.00-0.79); ~Hepatitis A Antibody IgM Nonreactive (Nonreactive); ~Hepatitis B Surface Antibody NONREACTIVE (Nonreactive); ~Hepatitis C Antibody Reactive (Nonreactive)
[2023-11-24] MEDS: Ketorolac Tromethamine 10 MG TABLET PO ×2 (11:12→20:14)
--- NOTE | 2023-11-24 11:27 | PHA.MEDREC ---
Pharmacy Consult ? Medication Reconciliation Pharmacy has completed the medication reconciliation. Patient is not on any prescriptions.
--- NOTE | 2023-11-24 13:18 | HO.PM.IMPN ---
Subjective Subjective Date of Service: 11/24/23 Interval History: possible cholangitis Review of Systems has some ruq pain controlled with pain meds denies any nausea ,vomiting or fevers Physical Exam Vital Signs: Vital Signs: Last Vital Signs Temp 97.6 F 11/24/23 13:11 Pulse 68 11/24/23 13:11 Resp 16 11/24/23 13:11 BP 116/69 11/24/23 13:11 Pulse Ox 97 11/24/23 13:11 O2 Del Method Room Air 11/24/23 13:11 BMI result Body Mass Index 20.0 Appearance: Alert.? Oriented X3.? cvs: rrr, [id number] , no murmur res: clear to auscultation ,no rhonchii or wheezing abd: no rebound or guarding ,mild ruq pain, bs present. ext pulses present , no cyanosis . neuro: axo3 , nonfocal. Objective Data Active Medications Acetaminophen (Acetaminophen 325 Mg Tablet) 650 mg PO Q6H PRN PRN Reason: Pain, Mild (Pain Scale 1-3) Benzonatate (Benzonatate 100 Mg Capsule) 100 mg PO TID PRN PRN Reason: Cough Docusate Sodium (Docusate Sodium 100 Mg Capsule) 100 mg PO DAILY PRN PRN Reason: Constipation Sodium Chloride (Ns) 1,000 mls @ 80 mls/hr IVCONT .[id number] [facility] Last Admin: 11/24/23 07:47 Dose: 80 mls/hr Documented By: COLLINS Piperacillin Sod/Tazobactam (Sod 3.375 gm/ Sodium Chloride) 50 mls @ 100 mls/hr IV Q6H [facility] Last Infusion: 11/24/23 11:47 Dose: Infused Documented By: DAKOTAH Ketorolac Tromethamine (Ketorolac Tromethamine 10 Mg Tablet) 10 mg PO Q6H PRN PRN Reason: Pain, Moderate(Pain Scale 4-6) Stop: 11/29/23 09:33 Last Admin: 11/24/23 11:12 Dose: 10 mg Documented By: DAKOTAH Melatonin (Melatonin 3 Mg Tablet) 6 mg PO BEDTIME PRN PRN Reason: Insomnia Morphine Sulfate (Morphine Sulfate 4 Mg/Ml Cartridge) 1 mg IVPUSH Q4H PRN; Protocol PRN Reason: Pain, Severe (Pain Scale 7-10) Ondansetron HCl (Ondansetron Hcl 4 Mg/2 Ml Vial) 4 mg IVPUSH Q8H PRN PRN Reason: Nausea and Vomiting Sodium Chloride (0.9 % Sodium Chloride Flush 3 Ml Syringe) 3 ml IVFLUSH QSHIFT [facility] Last Admin: 11/24/23 07:48 Dose: 3 ml Documented By: COLLINS Labs 11/24/23 04:33 11/24/23 04:33 Labs: Laboratory Results - last 24 hr 11/23/23 11/23/23 11/24/23 16:09 16:59 04:33 MCV 92.0 92.2 MCH 31.5 30.4 MCHC 34.3 33.0 RDW 13.5 13.8 Plt Count 244 214 MPV 10.1 11.7 Immature Gran % (Auto) Cancelled Neut % (Auto) Cancelled Lymph % (Auto) Cancelled [place] % (Auto) Cancelled Eos % (Auto) Cancelled Baso % (Auto) Cancelled Lymph # (Auto) Cancelled [place] # (Auto) Cancelled Eos # (Auto) Cancelled Baso # (Auto) Cancelled Abs Immat Gran (auto) Cancelled Absolute Neuts (auto) Cancelled Absolute Nucleated RBC 0.000 0.000 Nucleated RBC % (auto) 0.0 0.0 Neutrophils % (Manual) 75 H Band Neutrophils % 20 H Lymphocytes % (Manual) 1 L Monocytes % (Manual) 4 Abs Neuts (Manual) 14.8 H Lymphocytes # (Manual) 0.2 L Monocytes # (Manual) 0.6 Toxic Vacuolation PRESENT Platelet Estimate NORMAL Plt Morphology Comment NORMAL RBC Morphology NORMAL Smear Tech's Comments MANUAL DIFF APTT 33.2 Anion Gap 17 17 Estim Creat Clear Calc 114.1 108.2 Estimated GFR > 60 > 60 Random Glucose 123 H 101 Lactic Acid 1.7 Calcium 9.4 8.8 D Total Bilirubin 3.7 H 5.0 H Direct Bilirubin 3.0 H AST 260 H 158 H ALT 142 H 117 H Alkaline Phosphatase 818 H 654 H Troponin I High Sens 4.7 Total Protein 6.7 5.9 L Albumin 3.3 L 2.9 L Lipase 20 Carcinoembryonic Ag < 1.73 Procalcitonin 6.56 Urine Color Dark Yellow Urine Appearance Clear Urine pH 5.5 Ur Specific [place] 1.015 Urine Protein Negative Urine Glucose (UA) Negative Urine Ketones Negative Urine Blood Negative Urine Nitrite Negative Ur Leukocyte Esterase Trace H Urine RBC 0-2 Urine WBC 0-5 Ur Squamous Epith Cells 0-2 Urine Bacteria None Seen Hyaline Casts 0-2 Hepatitis A IgM Ab Nonreactive Hep Bs Antigen Negative Hep Bs Antibody NONREACTIVE Hep B Core Total Ab Nonreactive Hepatitis C Ab (EIA) Reactive H Microbiology Microbiology Results: Microbiology 11/23/23 17:58 Blood Culture - Preliminary Blood - Venous Prelim: GNR Gram Stain only 11/23/23 17:58 Blood Culture - Preliminary Blood - Venous Prelim: GNR Gram Stain only Assessment and Plan (1) Acute cholangitis: Status: Acute (2) Biliary disease with obstruction: Status: Acute Assessment and Plan: d-2 Patient with a PMH significant for?right hip fracture s/p surgical repair 1 month prior currently at [facility], appendectomy, and cervical fracture s/p C4-C5 fusion in 1979 not on home medications who presents to the ED with?RUQ pain. Pt will be admitted to the hospital for treatment and further evaluation of acute cholangitis with sepsis. Acute cholangitis Patient with RUQ pain mild sepsis criteria: Tachycardia and leukocytosis improved. CT of abdomen and pelvis found marked intrahepatic and extrahepatic biliary dilation with 2.4 cm soft tissue mass in distal CBD; significant transaminitis plan: npo, received IVF and on Zosyn, started 11/23/2023,Analgesics for pain management, antiemetics, IVF, mrcp GI consult for likely ERCP in the morning Follow cultures Right hip fracture S/P surgical ORIF, currently at [facility] Pt has been made weight-bearing as tolerated at [facility] Incidental CT findings CT of abdomen also found BPH and UPJ obstruction Should follow-up outpatient unless any new urologic symptoms or worsening renal function. Full Code DVT Prophylaxis: Penumatic boots ongoing hospitalization need for treatment of?acute cholangitis with sepsis. Pt will require hospitalization for treatment with IV antibiotics, fluids, antiemetics, and analgesics, as well as specialist consultation with GI with likely ERCP in the morning. Quality Stroke Does the patient have a stroke diagnosis?: No VTE Prior VTE?: No VTE Risk Level:: Medical - moderate - high VTE Device Contraindication: N/A - Device Ordered VTE Drug Contraindication: Treatment Not Indicated
[2023-11-24] MEDS: Melatonin 3 MG TABLET 6 MG PO (20:15)
[2023-11-25] VITALS (11 sets, daily range): BP systolic 107–130; BP diastolic 66–81; PULSE 58–85; RESP 16–18; TEMP 36.1–36.7; O2SAT 95–98
[2023-11-25] MEDS: Piperacillin Sodium/Tazobactam 3.375 GM in 0.9 % Sodium Chloride 50 ML IV ×4 (05:02→23:18)
[2023-11-25] MEDS: 0.9 % Sodium Chloride 1,000 ML 80 ML IVCONT (07:21)
[2023-11-25] MEDS: Ketorolac Tromethamine 10 MG TABLET PO ×2 (07:27→17:32)
--- NOTE | 2023-11-25 07:33 | P.PNIM_ITS ---
Subjective Subjective Date of Service: 11/25/23 Interval History: f/u on sepsis, cholangitis, GNR bacteremia interval history: pain is better, no fever Physical Exam 2 Vital Signs: Vital Signs: Last Vital Signs Temp 98.1 F 11/25/23 03:29 Pulse 67 11/25/23 03:29 Resp 16 11/25/23 03:29 BP 114/74 11/25/23 03:29 Pulse Ox 96 11/25/23 03:29 O2 Del Method Room Air 11/25/23 03:29 BMI result Body Mass Index 20.0 Const: Other: General: AO X 3, no acute distress Resp: CTA bilateral CVS: S1,S2,RRR GI: +BS, NT, no distention Skin: No rash Neuro: motor grossly intact Psych: appropriate affect Objective Data Active Medications Acetaminophen (Acetaminophen 325 Mg Tablet) 650 mg PO Q6H PRN PRN Reason: Pain, Mild (Pain Scale 1-3) Benzonatate (Benzonatate 100 Mg Capsule) 100 mg PO TID PRN PRN Reason: Cough Docusate Sodium (Docusate Sodium 100 Mg Capsule) 100 mg PO DAILY PRN PRN Reason: Constipation Sodium Chloride (Ns) 1,000 mls @ 80 mls/hr IVCONT .[id number] [facility] Last Admin: 11/25/23 07:21 Dose: 80 mls/hr Documented By: ANGELINA Piperacillin Sod/Tazobactam (Sod 3.375 gm/ Sodium Chloride) 50 mls @ 100 mls/hr IV Q6H [facility] Last Infusion: 11/25/23 05:36 Dose: Infused Documented By: SHREYA Ketorolac Tromethamine (Ketorolac Tromethamine 10 Mg Tablet) 10 mg PO Q6H PRN PRN Reason: Pain, Moderate(Pain Scale 4-6) Stop: 11/29/23 09:33 Last Admin: 11/25/23 07:27 Dose: 10 mg Documented By: ANGELINA Melatonin (Melatonin 3 Mg Tablet) 6 mg PO BEDTIME PRN PRN Reason: Insomnia Last Admin: 11/24/23 20:15 Dose: 6 mg Documented By: BONNIE Morphine Sulfate (Morphine Sulfate 4 Mg/Ml Cartridge) 1 mg IVPUSH Q4H PRN; Protocol PRN Reason: Pain, Severe (Pain Scale 7-10) Ondansetron HCl (Ondansetron Hcl 4 Mg/2 Ml Vial) 4 mg IVPUSH Q8H PRN PRN Reason: Nausea and Vomiting Sodium Chloride (0.9 % Sodium Chloride Flush 3 Ml Syringe) 3 ml IVFLUSH QSHIFT [facility] Last Admin: 11/25/23 07:02 Dose: Not Given Documented By: ANGELINA Non-Admin Reason: IV Running Labs 11/25/23 07:51 11/25/23 07:51 Labs: Laboratory Results - last 24 hr 11/24/23 04:33 Hepatitis A IgM Ab Nonreactive Hep Bs Antigen Negative Hep Bs Antibody NONREACTIVE Hep B Core Total Ab Nonreactive Hepatitis C Ab (EIA) Reactive H Microbiology Microbiology Results: Microbiology 11/23/23 17:58 Blood Culture - Preliminary Blood - Venous Prelim: GNR Gram Stain only 11/23/23 17:58 Blood Culture - Preliminary Blood - Venous Prelim: GNR Gram Stain only Assessment and Plan (1) Acute cholangitis: Status: Acute (2) Biliary disease with obstruction: Status: Acute Assessment and Plan: 68/m with h/o ?right hip fracture s/p surgical repair 1 month prior currently at [facility], appendectomy, and cervical fracture s/p C4-C5 fusion in 1979 not on chronic meds who presented with?RUQ pain. and found to have sepsis d/t cholangitis Sepsis d/t Acute cholangitis--MRCP CBD and IHP duct dilation, no mas- -Continue Zosyn -for ERCP today -NPO, IVF and analgesics -follow LFTs Sepsis/GNR bacteremia--related to above -continue Zosyn as above, check WBC, ID consult recent history of right hip fracture and rehab--Therapy as before, WB as tlated Incidental CT findings CT of abdomen also found BPH and UPJ obstruction--assymptoamtic, outpatient uro follow up Full Code DVT Prophylaxis: Penumatic boots, add heparin after ERCP inpt d/t acute cholangitis, sepis, bacteremia requiring IV and monitong response, high risk for M&M Quality Stroke Does the patient have a stroke diagnosis?: No VTE Prior VTE?: No VTE Risk Level:: Medical - moderate - high VTE Device Contraindication: N/A - Device Ordered VTE Drug Contraindication: Treatment Not Indicated
[2023-11-25 08:01] LABS: Hematocrit 34.4 % (42.0-52.0); Mean Corpuscular HGB Conc 34.9 g/dl (31.0-36.0); Mean Corpuscular Hemoglobin 31.8 pg (27.0-33.0); Mean Corpuscular Volume 91.2 fL (80.0-98.0); Mean Platelet Volume 10.5 fL (9.4-12.4); Platelet Count 229 X10*3/uL (160-400); Red Blood Count 3.77 X10*6/uL (4.60-5.80); Red Cell Distribution Width 13.7 % (11.0-16.0); White Blood Count 9.8 X10*3/uL (4.8-10.8)
[2023-11-25 08:14] LABS: Alanine Aminotransferase 63 U/L (0-40); Albumin Level 2.5 g/dL (3.5-5.0); Alkaline Phosphatase 511 U/L (39-117); Anion Gap 15 (12-20); Aspartate Amino Transferase 50 U/L (5-37); Bilirubin Direct 3.5 mg/dL (0.0-0.5); Bilirubin Total 4.3 mg/dL (0.0-1.0); Blood Urea Nitrogen 17 mg/dL (9-16); Calcium 8.6 mg/dL (8.4-10.2); Carbon Dioxide 21 mmol/L (22-29); Chloride 103 mmol/L (96-108); Creatinine Clr Calc Pharmacy 132.2; Estimated Glomerular Filt Rate > 60; Glucose Random 78 mg/dL (60-115); Potassium 3.9 mmol/L (3.3-5.1); Sodium 135 mmol/L (135-145); Total Protein 5.4 g/dL (6.5-8.0)
--- NOTE | 2023-11-25 09:17 | PM.CNGS ---
History of Present Illness Consult details Consult date: 11/25/23 <Samantha Vargas PA-C - Last Filed: 11/25/23 13:00> Narrative: Patient is a 68-year-old male with a collection of medical problems who presents with cholangitis. Patient is tentatively scheduled for ERCP 11/24. <Paul Greenberg MD - Last Filed: 11/25/23 13:36> Patient is a 68-year-old male with PMH significant for right hip fracture s/p repair 1 month ago, cervical fracture s/p C4-C5 fusion in 1979 who presented to the ED with RUQ pain. He developed discomfort in his right upper quadrant and right flank a few hours after breakfast. He then ate lunch and developed severe pain associated with nausea and rigors. Was seen by nursing at [facility] and sent to the ED for further evaluation. Work up in the ED was significant for leukocytosis of 15.6, bilirubin 3.7, AST 260/ALT 142, and alk-phos 818. CT of abdomen/pelvis found distended gallbladder with wall thickening, marked intrahepatic and extrahepatic biliary dilation with concern for soft tissue mass in distal CBD. Pt was admitted to the hospital for treatment of acute cholangitis, sepsis. Subsequent MRCP was performed which demonstrated choledocolithiasis, no evidence of an obstructing mass of the pancreatic head or ampullary region. ERCP is planned for today. <Samantha Vargas PA-C - Last Filed: 11/25/23 13:00> Review of Systems Constitutional: Constitutional: Denies chills and Denies fever(s) <ROXI Razo Last Filed: 11/25/23 13:00> ENT: Denies dizziness <ROXI Razo Last Filed: 11/25/23 13:00> Cardiovascular: Cardiovascular: Denies chest pain, Denies palpitations and Denies dyspnea <ROXI Razo Last Filed: 11/25/23 13:00> Respiratory: Respiratory: Denies dyspnea <ROXI Razo Last Filed: 11/25/23 13:00> Gastrointestinal: Gastrointestinal: Reports as per HPI, Denies diarrhea and Reports nausea <ROXI Razo Last Filed: 11/25/23 13:00> Genitourinary: Genitourinary: Denies dysuria <Samantha Vargas PA-C - Last Filed: 11/25/23 13:00> Musculoskeletal: Musculoskeletal: Denies numbness <Samantha Vargas PA-C - Last Filed: 11/25/23 13:00> Integumentary/Breasts: Skin/Breast: Reports jaundice <Samantha Vargas PA-C - Last Filed: 11/25/23 13:00> Neurologic: Denies dizziness and Denies numbness <Samantha Vargas PA-C - Last Filed: 11/25/23 13:00> Endocrine: Endocrine: Denies palpitations <Samantha Vargas PA-C - Last Filed: 11/25/23 13:00> PMFSH Past Medical History Medical History: Medical History (Updated 11/24/23 @ 21:07 by Catherine Mancuso MD) Closed right hip fracture <Paul Greenberg MD - Last Filed: 11/25/23 13:36> Surgical History Surgical History: Surgical History (Updated 11/23/23 @ 21:17 by RYNE Givens) History of appendectomy <Paul Greenberg MD - Last Filed: 11/25/23 13:36> Social History Social History: Social History Household Members: None Household Members Other:: at rehab facility Housing: Snf Do you presently have visiting nurse or other home services: No Alcohol intake: former Patient Tobacco Use Status: Never used Tobacco service: No <Paul Greenberg MD - Last Filed: 11/25/23 13:36> Meds Allergies/Adverse reactions: Allergies Allergy/AdvReac Type Severity Reaction Status Date / Time No Known Allergies Allergy Verified 11/23/23 15:21 <Paul Greenberg MD - Last Filed: 11/25/23 13:36> Active Medications: Current Medications Acetaminophen (Acetaminophen 325 Mg Tablet) 650 mg PO Q6H PRN PRN Reason: Pain, Mild (Pain Scale 1-3) Benzonatate (Benzonatate 100 Mg Capsule) 100 mg PO TID PRN PRN Reason: Cough Docusate Sodium (Docusate Sodium 100 Mg Capsule) 100 mg PO DAILY PRN PRN Reason: Constipation Sodium Chloride (Ns) 1,000 mls @ 80 mls/hr IVCONT .[id number] [facility] Last Admin: 11/25/23 07:21 Dose: 80 mls/hr Piperacillin Sod/Tazobactam (Sod 3.375 gm/ Sodium Chloride) 50 mls @ 100 mls/hr IV Q6H [facility] Last Infusion: 11/25/23 05:36 Dose: Infused Ketorolac Tromethamine (Ketorolac Tromethamine 10 Mg Tablet) 10 mg PO Q6H PRN PRN Reason: Pain, Moderate(Pain Scale 4-6) Stop: 11/29/23 09:33 Last Admin: 11/25/23 07:27 Dose: 10 mg Melatonin (Melatonin 3 Mg Tablet) 6 mg PO BEDTIME PRN PRN Reason: Insomnia Last Admin: 11/24/23 20:15 Dose: 6 mg Morphine Sulfate (Morphine Sulfate 4 Mg/Ml Cartridge) 1 mg IVPUSH Q4H PRN; Protocol PRN Reason: Pain, Severe (Pain Scale 7-10) Ondansetron HCl (Ondansetron Hcl 4 Mg/2 Ml Vial) 4 mg IVPUSH Q8H PRN PRN Reason: Nausea and Vomiting Sodium Chloride (0.9 % Sodium Chloride Flush 3 Ml Syringe) 3 ml IVFLUSH QSHIFT [facility] Last Admin: 11/25/23 07:02 Dose: Not Given <Paul Greenberg MD - Last Filed: 11/25/23 13:36> Home medications: Home Medications ?Medication ?Instructions ?Recorded ?Confirmed ?Last Taken ?Type aspirin 500 mg tablet 1,000 mg PO Q4H PRN Pain 11/24/23 11/24/23 10/17/23 History <Paul Greenberg MD - Last Filed: 11/25/23 13:36> Physical Exam Vital Signs: Vital Signs: Last Vital Signs Temp 97.2 F 11/25/23 07:38 Pulse 65 11/25/23 07:38 Resp 16 11/25/23 07:38 BP 107/69 11/25/23 07:38 Pulse Ox 95 11/25/23 07:38 O2 Del Method Room Air 11/25/23 07:38 BMI result Body Mass Index 20.0 <Paul Greenberg MD - Last Filed: 11/25/23 13:36> Const: General: comfortable, no acute distress and alert <ROXI Razo Last Filed: 11/25/23 13:00> Eyes: Sclerae: scleral abnormal (icteric ) <ROXI Razo Last Filed: 11/25/23 13:00> Resp: Effort & Inspection: normal respiratory effort <ROXI Razo Last Filed: 11/25/23 13:00> GI: Inspection: No distended and Yes scar (mcburney scar RLQ ) <ROXI Razo Last Filed: 11/25/23 13:00> Palpation (GI): Soft to palpation, Tenderness to palpation present (GI) in the RUQ; Hernandes's sign negative and no guarding <ROXI Razo Last Filed: 11/25/23 13:00> Percussion: Yes normal to percussion <ROXI Razo Last Filed: 11/25/23 13:00> Skin: General skin exam: no rashes or lesions noted and jaundice <ROXI Razo Last Filed: 11/25/23 13:00> Results Labs Result diagrams: 11/25/23 07:51 11/25/23 07:51 <Paul Greenberg MD - Last Filed: 11/25/23 13:36> Labs: Abnormal lab results 11/24/23 11/25/23 Range/Units 04:33 07:51 RBC 3.77 L (4.60-5.80) X10*6/uL Hgb 12.0 L (14.0-18.0) g/dl Hct 34.4 L (42.0-52.0) % Carbon Dioxide 21 L (22-29) mmol/L BUN 17 H (9-16) mg/dL Total Bilirubin 4.3 H (0.0-1.0) mg/dL Direct Bilirubin 3.5 H (0.0-0.5) mg/dL AST 50 H (5-37) U/L ALT 63 H (0-40) U/L Alkaline Phosphatase 511 H (39-117) U/L Total Protein 5.4 L (6.5-8.0) g/dL Albumin 2.5 L (3.5-5.0) g/dL Hepatitis C Ab (EIA) Reactive H (Nonreactive) Short CBC 11/25/23 Range/Units 07:51 WBC 9.8 (4.8-10.8) X10*3/uL Hgb 12.0 L (14.0-18.0) g/dl Hct 34.4 L (42.0-52.0) % Plt Count 229 (160-400) X10*3/uL BMP 11/25/23 07:51 Sodium 135 Potassium 3.9 D Chloride 103 Carbon Dioxide 21 L BUN 17 H Creatinine 0.63 Calcium 8.6 Liver Function 11/25/23 Range/Units 07:51 Total Bilirubin 4.3 H (0.0-1.0) mg/dL Direct Bilirubin 3.5 H (0.0-0.5) mg/dL AST 50 H (5-37) U/L ALT 63 H (0-40) U/L Alkaline Phosphatase 511 H (39-117) U/L Albumin 2.5 L (3.5-5.0) g/dL Urine 11/23/23 Range/Units 16:59 Urine Color Dark Yellow Urine Appearance Clear Urine pH 5.5 (5.0-9.0) Ur Specific [place] 1.015 (1.005-1.025) Urine Protein Negative (Neg-Trace) mg/dL Urine Glucose (UA) Negative (Negative) mg/dL All other labs normal. <Paul Greenberg MD - Last Filed: 11/25/23 13:36> Imaging Abdomen CT scan report/results: report reviewed and image reviewed <Samantha Vargas PA-C - Last Filed: 11/25/23 13:00> Assessment and Plan (1) Choledocholithiasis: Status: Acute <Paul Greenberg MD - Last Filed: 11/25/23 13:36> (2) Acute cholangitis: Status: Acute <Paul Greenberg MD - Last Filed: 11/25/23 13:36> Depending on ERCP results, which are for today, patient will be tentatively scheduled for lap choly either tomorrow or the following day. <Paul Greenberg MD - Last Filed: 11/25/23 13:36> 68 year old male with acute onset RUQ abd pain admitted with choledocolithiasis, cholangitis. Patient will be tentatively scheduled for lap nydia either tomorrow or the following day, depending on ERCP results today. Risks, benefits, alternatives of laparoscopic possible open cholecystectomy were reviewed with the patient including but not limited to bleeding, infection, numbness, pain, poor healing, injury to the liver, bowel or bile ducts, leak, retained stones and the patient wishes to proceed.? Arrangements will be made for this.?All questions were answered. <Samantha Vargas PA-C - Last Filed: 11/25/23 13:00> Procedures Date of Service Date of Service: 11/25/23 <Paul Greenberg MD - Last Filed: 11/25/23 13:36> 11/25/23 <Samantha Vargas PA-C - Last Filed: 11/25/23 13:00>
--- NOTE | 2023-11-25 12:46 | P.PNGI_ITS ---
Subjective Subjective Date of Service: 11/25/23 Interval History: no further fever minimal pain today feels hungry still jaundiced Critical Care Time (minutes): 0 Physical Exam 2 Vital Signs: Vital Signs: Last Vital Signs Temp 97.2 F 11/25/23 07:38 Pulse 65 11/25/23 07:38 Resp 16 11/25/23 07:38 BP 107/69 11/25/23 07:38 Pulse Ox 95 11/25/23 07:38 O2 Del Method Room Air 11/25/23 07:38 BMI result Body Mass Index 20.0 EXAM: GENERAL: The patient is well developed and nontoxic VITAL SIGNS:see workflow HEENT: +icteric sclerae, PERRLA, EOMI. Oropharynx clear. Moist mucous membranes. Conjunctivae appear well perfused. No thyroid mass. CHEST: Chest wall is nontender. HEART: Regular rate and rhythm without murmurs. LUNGS: Clear to auscultation bilaterally. ABDOMEN: Soft, positive bowel sounds, nontender, no organomegaly.no flank tenderness SKIN: No rash, no excessive bruising, petechiae, or purpura. jaundiced NEUROLOGIC: Cranial nerves II-XII intact without motor/sensory deficit. Psych: normal affect Objective Data Labs 11/25/23 07:51 11/25/23 07:51 Labs: Laboratory Results - last 24 hr 11/25/23 07:51 WBC 9.8 RBC 3.77 L Hgb 12.0 L Hct 34.4 L MCV 91.2 MCH 31.8 MCHC 34.9 RDW 13.7 Plt Count 229 MPV 10.5 Absolute Nucleated RBC 0.000 Nucleated RBC % (auto) 0.0 Sodium 135 Potassium 3.9 D Chloride 103 Carbon Dioxide 21 L Anion Gap 15 BUN 17 H Creatinine 0.63 Estim Creat Clear Calc 132.2 Estimated GFR > 60 Random Glucose 78 Calcium 8.6 Total Bilirubin 4.3 H Direct Bilirubin 3.5 H AST 50 H ALT 63 H Alkaline Phosphatase 511 H Total Protein 5.4 L Albumin 2.5 L Imaging MRI - abdomen: Attestation: I personally reviewed and interpreted this imaging study as follows: (dilated CBD, stone noted in mid CBD) Microbiology Microbiology Results: Microbiology 11/23/23 17:58 Blood - Venous Blood Culture - Preliminary Gram negative sheila 11/23/23 17:58 Blood - Venous Blood Culture - Preliminary Gram negative sheila Procedures Date of Service Date of Service: 11/25/23 Progress Note: A&P Assessment and plan (1) Choledocholithiasis: Status: Acute Plan 1/ choledocholithiasis with cholangitis and GNR bacteremia, doing better now with fluids and resus, and ABX PLAN: 1/ ERCP today possible spyglass with EHL Time Spent With Patient Time: Total time managing care of this patient today ____ minutes. Quality Stroke Does the patient have a stroke diagnosis?: No VTE Prior VTE?: No VTE Risk Level:: Medical - moderate - high VTE Device Contraindication: N/A - Device Ordered VTE Drug Contraindication: Treatment Not Indicated
--- NOTE | 2023-11-25 12:48 | MHC.SHP ---
Pre-Procedural Eval Section A - 24 Hr Update-Section A only Date of Service: 11/25/23 The patient is an INPATIENT: Yes The patient has been examined within 24 hours of the surgical procedure. The History & Physical has been completed within 30 days and I have reviewed it.: Yes Section B - Complete if H&P > 30 days Chief Complaint: Cholangitis Allergies: Allergies Allergy/AdvReac Type Severity Reaction Status Date / Time No Known Allergies Allergy Verified 11/23/23 15:21 Plan Diagnosis/Plan: Unchanged I have reviewed the history and physical and performed a pertinent physical examination on my patient. No changes have occurred unless specified. Time Spent With Patient Time: Total time managing care of this patient today ____ minutes.
[2023-11-25 13:04] LABS: Alpha Fetoprotein 3.7 ng/mL (<6.1)
--- NOTE | 2023-11-25 14:05 | P.CONAN_ITS ---
HPI - Anesthesia Eval Consult details Narrative: for ercp [facility] Active Problems Active Problems: All Active Problems Choledocholithiasis (Acute) Dilated cbd, acquired (Acute) Acute cholangitis (Acute) Biliary disease with obstruction (Acute) Past Medical History Medical History Closed right hip fracture Family History Family history of problems with anesthesia: No Surgical History Surgical History History of appendectomy History of Problems with Anesthesia: No Social History Social History Household Members: None Household Members Other:: at rehab facility Housing: [facility] Do you presently have visiting nurse or other home services: No Alcohol intake: former Patient Tobacco Use Status: Never used Tobacco service: No Meds Allergies Allergy/AdvReac Type Severity Reaction Status Date / Time No Known Allergies Allergy Verified 11/23/23 15:21 Active Medications: Current Medications Acetaminophen (Acetaminophen 325 Mg Tablet) 650 mg PO Q6H PRN PRN Reason: Pain, Mild (Pain Scale 1-3) Benzonatate (Benzonatate 100 Mg Capsule) 100 mg PO TID PRN PRN Reason: Cough Docusate Sodium (Docusate Sodium 100 Mg Capsule) 100 mg PO DAILY PRN PRN Reason: Constipation Sodium Chloride (Ns) 1,000 mls @ 80 mls/hr IVCONT .[id number] [facility] Last Infusion: 11/25/23 12:18 Dose: 0 mls/hr Piperacillin Sod/Tazobactam (Sod 3.375 gm/ Sodium Chloride) 50 mls @ 100 mls/hr IV Q6H [facility] Last Infusion: 11/25/23 11:58 Dose: Infused Ketorolac Tromethamine (Ketorolac Tromethamine 10 Mg Tablet) 10 mg PO Q6H PRN PRN Reason: Pain, Moderate(Pain Scale 4-6) Stop: 11/29/23 09:33 Last Admin: 11/25/23 07:27 Dose: 10 mg Melatonin (Melatonin 3 Mg Tablet) 6 mg PO BEDTIME PRN PRN Reason: Insomnia Last Admin: 11/24/23 20:15 Dose: 6 mg Morphine Sulfate (Morphine Sulfate 4 Mg/Ml Cartridge) 1 mg IVPUSH Q4H PRN; Protocol PRN Reason: Pain, Severe (Pain Scale 7-10) Ondansetron HCl (Ondansetron Hcl 4 Mg/2 Ml Vial) 4 mg IVPUSH Q8H PRN PRN Reason: Nausea and Vomiting Sodium Chloride (0.9 % Sodium Chloride Flush 3 Ml Syringe) [facility] Last Admin: 11/25/23 07:02 Dose: Not Given Home Medications ?Medication ?Instructions ?Recorded ?Confirmed ?Last Taken ?Type aspirin 500 mg tablet 1,000 mg PO Q4H PRN Pain 11/24/23 11/24/23 10/17/23 History Exam Height,Weight and Vital Signs: Height 6 ft 9 in Weight 84.5 kg Last Vital Signs Temp 98.0 F 11/25/23 12:46 Pulse 70 11/25/23 12:46 Resp 16 11/25/23 12:46 BP 107/75 11/25/23 12:46 Pulse Ox 96 11/25/23 12:46 O2 Del Method Room Air 11/25/23 12:46 Pertinent Lab Results Pertinent Lab Results: Laboratory Tests 11/23/23 11/23/23 11/24/23 16:09 16:59 04:33 WBC 15.6 H 15.8 H RBC 4.35 L 4.34 L Hgb 13.7 L 13.2 L Hct 40.0 L 40.0 L MCV 92.0 92.2 MCH 31.5 30.4 MCHC 34.3 33.0 RDW 13.5 13.8 Plt Count 244 214 MPV 10.1 11.7 Immature Gran % (Auto) Cancelled Neut % (Auto) Cancelled Lymph % (Auto) Cancelled [place] % (Auto) Cancelled Eos % (Auto) Cancelled Baso % (Auto) Cancelled Lymph # (Auto) Cancelled [place] # (Auto) Cancelled Eos # (Auto) Cancelled Baso # (Auto) Cancelled Abs Immat Gran (auto) Cancelled Absolute Neuts (auto) Cancelled Absolute Nucleated RBC 0.000 0.000 Nucleated RBC % (auto) 0.0 0.0 Neutrophils % (Manual) 75 H Band Neutrophils % 20 H Lymphocytes % (Manual) 1 L Monocytes % (Manual) 4 Abs Neuts (Manual) 14.8 H Lymphocytes # (Manual) 0.2 L Monocytes # (Manual) 0.6 Toxic Vacuolation PRESENT Platelet Estimate NORMAL Plt Morphology Comment NORMAL RBC Morphology NORMAL Smear Tech's Comments MANUAL DIFF APTT 33.2 Sodium 135 137 Potassium 4.0 4.9 D Chloride 97 101 Carbon Dioxide 25 24 Anion Gap 17 17 BUN 12 15 Creatinine 0.73 0.77 Estim Creat Clear Calc 114.1 108.2 Estimated GFR > 60 > 60 Random Glucose 123 H 101 Lactic Acid 1.7 Calcium 9.4 8.8 D Total Bilirubin 3.7 H 5.0 H Direct Bilirubin 3.0 H AST 260 H 158 H ALT 142 H 117 H Alkaline Phosphatase 818 H 654 H Troponin I High Sens 4.7 Total Protein 6.7 5.9 L Albumin 3.3 L 2.9 L Lipase 20 Alpha Fetoprotein 3.7 Carcinoembryonic Ag < 1.73 Procalcitonin 6.56 Urine Color Dark Yellow Urine Appearance Clear Urine pH 5.5 Ur Specific [place] 1.015 Urine Protein Negative Urine Glucose (UA) Negative Urine Ketones Negative Urine Blood Negative Urine Nitrite Negative Ur Leukocyte Esterase Trace H Urine RBC 0-2 Urine WBC 0-5 Ur Squamous Epith Cells 0-2 Urine Bacteria None Seen Hyaline Casts 0-2 Hepatitis A IgM Ab Nonreactive Hep Bs Antigen Negative Hep Bs Antibody NONREACTIVE Hep B Core Total Ab Nonreactive Hepatitis C Ab (EIA) Reactive H 11/25/23 07:51 WBC 9.8 RBC 3.77 L Hgb 12.0 L Hct 34.4 L MCV 91.2 MCH 31.8 MCHC 34.9 RDW 13.7 Plt Count 229 MPV 10.5 Immature Gran % (Auto) Neut % (Auto) Lymph % (Auto) [place] % (Auto) Eos % (Auto) Baso % (Auto) Lymph # (Auto) [place] # (Auto) Eos # (Auto) Baso # (Auto) Abs Immat Gran (auto) Absolute Neuts (auto) Absolute Nucleated RBC 0.000 Nucleated RBC % (auto) 0.0 Neutrophils % (Manual) Band Neutrophils % Lymphocytes % (Manual) Monocytes % (Manual) Abs Neuts (Manual) Lymphocytes # (Manual) Monocytes # (Manual) Toxic Vacuolation Platelet Estimate Plt Morphology Comment RBC Morphology Smear Tech's Comments APTT Sodium 135 Potassium 3.9 D Chloride 103 Carbon Dioxide 21 L Anion Gap 15 BUN 17 H Creatinine 0.63 Estim Creat Clear Calc 132.2 Estimated GFR > 60 Random Glucose 78 Lactic Acid Calcium 8.6 Total Bilirubin 4.3 H Direct Bilirubin 3.5 H AST 50 H ALT 63 H Alkaline Phosphatase 511 H Troponin I High Sens Total Protein 5.4 L Albumin 2.5 L Lipase Alpha Fetoprotein Carcinoembryonic Ag Procalcitonin Urine Color Urine Appearance Urine pH Ur Specific [place] Urine Protein Urine Glucose (UA) Urine Ketones Urine Blood Urine Nitrite Ur Leukocyte Esterase Urine RBC Urine WBC Ur Squamous Epith Cells Urine Bacteria Hyaline Casts Hepatitis A IgM Ab Hep Bs Antigen Hep Bs Antibody Hep B Core Total Ab Hepatitis C Ab (EIA) Airway Mallampati Class: III (poor dentition) TM Dist: >3cm Neck ROM: Full Heart: rrr Lungs: cta Assessment and Plan Assessment Anesthesia Assessment: Anesthesia Plan Discussed and Chart Reviewed Final Anesthetic Review Family History of Problems with Anesthesia: No History of Problems with Anesthesia: No NPO: Yes ASA Class: III Final Preanesthetic Review: No Changes in Pt Med Stat, Meds/Allgs Chart Reviewed, Consent Obtained/Reviewed and Anes Risks/Benef Reviewed Patient Risk: Intermediate Procedure Risk: Intermediate Anesthetic Plan Anesthetic Plan: GA Disposition: Standard PACU
--- NOTE | 2023-11-25 15:28 | P.OP_ITS ---
Operative Note Operative Note Date of Service: 11/25/23 Narrative: Description:?Endoscopic retrograde cholangiopancreatography (ERCP) PROCEDURE:?Endoscopic retrograde cholangiopancreatography INDICATION FOR THE PROCEDURE:?Patient with a history of choledocholithiasis and cholangitis MEDICATIONS:?General anesthesia. The risks of the procedure were made aware to the patient and consisted of me dication reaction, bleeding, perforation, aspiration, and post ERCP pancreatitis. DESCRIPTION OF PROCEDURE:?After informed consent and appropriate sedation, the duodenoscope was inserted into the oropharynx, down the esophagus, and into the stomach. The scope was then advanced through the pylorus to the duodenum. The scope was advanced in the correct orientation and a large diverticulum was noted. Bile was noted to be coming from the diverticulum. Despite manipulation of the folds and the scope I was unable to access the biliary orifice. After some time the procedure was aborted FINDINGS: 1. 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 Allow PO diet as tolerated 2. I discussed with IR (Dr Yancey) and he will review the case for PTC and possible cholangioscopy and lithotripsy. Maybe tomorrow or depending on staffing, keep NPO after midnight.
--- NOTE | 2023-11-25 15:28 | MHC.CM.PN ---
CM rec'd call from Soila Newell CM for patient's worker's comp. Soila has questions about dc plan. Patient is off unit for procedure, unable to obtain consent to communicate w/ Soila at this time. CM will obtain consent when patient is back on unit. Per Soila, worker's comp is paying for STR and will pay for patient to dc to hotel temporarily after STR. Patient lives in a trailer w/ a roommate, but Soila does not feel that is a safe dc plan w/ impaired mobility/use of walker. Soila: [phone]
[2023-11-26] VITALS (10 sets, daily range): BP systolic 108–128; BP diastolic 67–77; PULSE 50–66; RESP 14–18; TEMP 36.1–36.6; O2SAT 96–100
[2023-11-26] MEDS: Ketorolac Tromethamine 10 MG TABLET PO ×3 (00:06→11:30)
[2023-11-26] MEDS: Melatonin 3 MG TABLET 6 MG PO (00:06)
--- NOTE | 2023-11-26 00:19 | W.PM.IDCN ---
History of Present Illness Data of Consult Service Date: 11/25/23 Requesting physician: Will Gunter Primary Care Provider: MD MAHESH Mart Reason for consult: abdominal discomfort He presents with 7/10 right sided abdominal discomfort for last day. He has been NPO for GI evaluation Review of Systems Review of Systems: Yes all other systems are reviewed and are negative PMFSH Past Medical History Medical History Closed right hip fracture Family History Family history: reviewed and not pertinent Surgical History Surgical History History of appendectomy Social History Social History Household Members: None Household Members Other:: at rehab facility Housing: [facility] Do you presently have visiting nurse or other home services: No Alcohol intake: former Patient Tobacco Use Status: Never used Tobacco service: No Meds Allergies Allergy/AdvReac Type Severity Reaction Status Date / Time No Known Allergies Allergy Verified 11/23/23 15:21 Active Medications: Current Medications Acetaminophen (Acetaminophen 325 Mg Tablet) 650 mg PO Q6H PRN PRN Reason: Pain, Mild (Pain Scale 1-3) Benzonatate (Benzonatate 100 Mg Capsule) 100 mg PO TID PRN PRN Reason: Cough Docusate Sodium (Docusate Sodium 100 Mg Capsule) 100 mg PO DAILY PRN PRN Reason: Constipation Piperacillin Sod/Tazobactam (Sod 3.375 gm/ Sodium Chloride) 50 mls @ 100 mls/hr IV Q6H [facility] Last Infusion: 11/25/23 23:57 Dose: Infused Ketorolac Tromethamine (Ketorolac Tromethamine 10 Mg Tablet) 10 mg PO Q6H PRN PRN Reason: Pain, Moderate(Pain Scale 4-6) Stop: 11/29/23 09:33 Last Admin: 11/26/23 00:06 Dose: 10 mg Melatonin (Melatonin 3 Mg Tablet) 6 mg PO BEDTIME PRN PRN Reason: Insomnia Last Admin: 11/26/23 00:06 Dose: 6 mg Morphine Sulfate (Morphine Sulfate 4 Mg/Ml Cartridge) 1 mg IVPUSH Q4H PRN; Protocol PRN Reason: Pain, Severe (Pain Scale 7-10) Ondansetron HCl (Ondansetron Hcl 4 Mg/2 Ml Vial) 4 mg IVPUSH Q8H PRN PRN Reason: Nausea and Vomiting Sodium Chloride (0.9 % Sodium Chloride Flush 3 Ml Syringe) [address] [facility] Last Admin: 11/25/23 22:30 Dose: Not Given Home Medications ?Medication ?Instructions ?Recorded ?Confirmed ?Last Taken ?Type aspirin 500 mg tablet 1,000 mg PO Q4H PRN Pain 11/24/23 11/24/23 10/17/23 History Physical Exam Vital Signs: Vital Signs: Last Vital Signs Temp 97.2 F 11/25/23 23:46 Pulse 60 11/25/23 23:46 Resp 18 11/25/23 23:46 BP 124/66 11/25/23 23:46 Pulse Ox 97 11/25/23 23:46 O2 Del Method Room Air 11/25/23 23:46 BMI result Body Mass Index 20.0 Const: General: cooperative HEENT: Head: Yes normal to inspection Face and sinus: Yes normal facial exam Mouth: Normal oral and palatal mucosa present Teeth and gingiva: dentition normal Eyes: General: appearance normal, both eyes and all related structures Pupils: Equal, round and reactive pupils present Resp: Effort & Inspection: normal respiratory effort Cardio: Rate: regular rate Rhythm: regular rhythm GI: Palpation (GI): Soft to palpation and nontender : General: Yes no CVA tenderness Back/Spine/Pelvis: Back: no CVA tenderness Skin: General skin exam: no rashes or lesions noted Neuro: General: moves all extremities Cranial nerves: Yes Equal, round and reactive pupils present Extrem: General: Yes normal to inspection Psych: Appearance: grossly normal Results Labs 11/25/23 07:51 11/25/23 07:51 Labs: Short CBC 11/25/23 Range/Units 07:51 WBC 9.8 (4.8-10.8) X10*3/uL Hgb 12.0 L (14.0-18.0) g/dl Hct 34.4 L (42.0-52.0) % Plt Count 229 (160-400) X10*3/uL BMP 11/25/23 07:51 Sodium 135 Potassium 3.9 D Chloride 103 Carbon Dioxide 21 L BUN 17 H Creatinine 0.63 Calcium 8.6 Liver Function 11/25/23 Range/Units 07:51 Total Bilirubin 4.3 H (0.0-1.0) mg/dL Direct Bilirubin 3.5 H (0.0-0.5) mg/dL AST 50 H (5-37) U/L ALT 63 H (0-40) U/L Alkaline Phosphatase 511 H (39-117) U/L Albumin 2.5 L (3.5-5.0) g/dL Microbiology Microbiology Results: Microbiology 11/23/23 17:58 Blood - Venous Blood Culture - Preliminary Gram negative sheila 11/23/23 17:58 Blood - Venous Blood Culture - Preliminary Gram negative sheila Assessment and Plan (1) Choledocholithiasis: Status: Acute (2) Dilated cbd, acquired: Status: Acute Plan Blockage of bile duct concern. Piperacillin/tazobactam until improved and then Augmentin total 10 days.
[2023-11-26] MEDS: Piperacillin Sodium/Tazobactam 3.375 GM in 0.9 % Sodium Chloride 50 ML IV (05:06)
[2023-11-26 07:26] LABS: Alanine Aminotransferase 47 U/L (0-40); Albumin Level 2.6 g/dL (3.5-5.0); Alkaline Phosphatase 466 U/L (39-117); Aspartate Amino Transferase 26 U/L (5-37); Bilirubin Direct 1.4 mg/dL (0.0-0.5); Bilirubin Total 1.8 mg/dL (0.0-1.0); Total Protein 5.6 g/dL (6.5-8.0)
[2023-11-26] MEDS: 0.9 % Sodium Chloride Flush 3 ML SYRINGE IVFLUSH ×2 (08:38→16:30)
--- NOTE | 2023-11-26 09:05 | HO.POSTANES ---
Post Anesthesia Evaluation Post Anesthesia Evaluation Date of Service: 11/25/23 Vital Signs: Vital Signs Temp Pulse Resp BP Pulse Ox O2 Del Method 11/26/23 07:54 97.6 F 62 18 122/76 98 Room Air 11/26/23 03:24 97.9 F 52 18 122/71 96 Room Air 11/25/23 23:46 97.2 F 60 18 124/66 97 Room Air Anesthesia: General Endotracheal-GETA Mental Status: Awake Pain Control: Satisfactory Nausea/Vomiting: None Hydration: Adequate Anesthesia-Related Issues: No Anes. Related Issues
[2023-11-26 10:06] LABS: MANUAL DIFF FLAG NO
--- NOTE | 2023-11-26 10:07 | P.PNIM_ITS ---
Subjective Subjective Date of Service: 11/26/23 Interval History: f/u on sepsis, cholangitis, GNR bacteremia interval history: ERCP was unsucesful yesterday, no fever, , pain is better Physical Exam 2 Vital Signs: Vital Signs: Last Vital Signs Temp 97.6 F 11/26/23 07:54 Pulse 62 11/26/23 07:54 Resp 18 11/26/23 07:54 BP 122/76 11/26/23 07:54 Pulse Ox 98 11/26/23 07:54 O2 Del Method Room Air 11/26/23 07:54 BMI result Body Mass Index 20.0 Const: Other: General: AO X 3, no acute distress Resp: CTA bilateral CVS: S1,S2,RRR GI: +BS, NT, no distention Skin: No rash Neuro: motor grossly intact Psych: appropriate affect Objective Data Active Medications Acetaminophen (Acetaminophen 325 Mg Tablet) 650 mg PO Q6H PRN PRN Reason: Pain, Mild (Pain Scale 1-3) Benzonatate (Benzonatate 100 Mg Capsule) 100 mg PO TID PRN PRN Reason: Cough Docusate Sodium (Docusate Sodium 100 Mg Capsule) 100 mg PO DAILY PRN PRN Reason: Constipation Piperacillin Sod/Tazobactam (Sod 3.375 gm/ Sodium Chloride) 50 mls @ 100 mls/hr IV Q6H [facility] Last Infusion: 11/26/23 05:41 Dose: Infused Documented By: BONNIE Ketorolac Tromethamine (Ketorolac Tromethamine 10 Mg Tablet) 10 mg PO Q6H PRN PRN Reason: Pain, Moderate(Pain Scale 4-6) Stop: 11/29/23 09:33 Last Admin: 11/26/23 05:54 Dose: 10 mg Documented By: BONNIE Melatonin (Melatonin 3 Mg Tablet) 6 mg PO BEDTIME PRN PRN Reason: Insomnia Last Admin: 11/26/23 00:06 Dose: 6 mg Documented By: BONNIE Morphine Sulfate (Morphine Sulfate 4 Mg/Ml Cartridge) 1 mg IVPUSH Q4H PRN; Protocol PRN Reason: Pain, Severe (Pain Scale 7-10) Ondansetron HCl (Ondansetron Hcl 4 Mg/2 Ml Vial) 4 mg IVPUSH Q8H PRN PRN Reason: Nausea and Vomiting Sodium Chloride (0.9 % Sodium Chloride Flush 3 Ml Syringe) 3 ml IVFLUSH QSHIFT [facility] Last Admin: 11/26/23 08:38 Dose: 3 ml Documented By: CYNTHIA Labs 11/25/23 07:51 11/25/23 07:51 Labs: Laboratory Results - last 24 hr 11/24/23 11/26/23 04:33 05:47 Hold Purple Top SEE NOTE Total Bilirubin 1.8 H Direct Bilirubin 1.4 H AST 26 ALT 47 H Alkaline Phosphatase 466 H Total Protein 5.6 L Albumin 2.6 L Alpha Fetoprotein 3.7 Microbiology Microbiology Results: Microbiology 11/23/23 17:58 Blood Culture - Preliminary Blood - Venous Escherichia coli 11/23/23 17:58 Blood Culture - Preliminary Blood - Venous Escherichia coli Assessment and Plan (1) Acute cholangitis: Status: Acute (2) Biliary disease with obstruction: Status: Acute Assessment and Plan: 68/m with h/o ?right hip fracture s/p surgical repair 1 month prior currently at STR, appendectomy, and cervical fracture s/p C4-C5 fusion in 1979 not on chronic meds who presented with?RUQ pain. and found to have sepsis d/t cholangitis Sepsis d/t Acute cholangitis--MRCP CBD and IHP duct dilation, no mas- -Change Zosyn (11/23 to 11/25)to Ceftriaxone for E.coli -ERCP 11/24 was unsucesful -gi recommends IR guided tube placement -surgery consult -NPO, IVF and analgesics -follow LFTs Sepsis/E coli bacteremia--related to above -continueCeftriaxone as above,t recent history of right hip fracture and rehab--Therapy as before, WB as tlated Incidental CT findings CT of abdomen also found BPH and UPJ obstruction--assymptoamtic, outpatient uro follow up Full Code DVT Prophylaxis: Penumatic boots, add heparin after ERCP inpt d/t acute cholangitis, sepis, bacteremia requiring IV and monitong response, high risk for M&M Quality Stroke Does the patient have a stroke diagnosis?: No VTE Prior VTE?: No VTE Risk Level:: Medical - moderate - high VTE Device Contraindication: N/A - Device Ordered VTE Drug Contraindication: Treatment Not Indicated
[2023-11-26 10:11] LABS: INTERNATIONAL NORM RATIO 0.9 (0.9-1.1); Prothrombin Time 11.5 SEC (11.1-13.3)
[2023-11-26 10:19] LABS: Hematocrit 36.1 % (42.0-52.0); Hemoglobin 12.3 g/dl (14.0-18.0); Imm Gran Abs Auto 0.02 X10*3/uL (0.00-0.03); Imm Gran Pct Auto 0.3 % (0.0-0.4); Lymphocytes Absolute Auto 0.6 X10*3/uL (1.2-4.9); Lymphocytes Percent Auto 9.4 % (20-40); Mean Corpuscular HGB Conc 34.1 g/dl (31.0-36.0); Mean Corpuscular Hemoglobin 30.9 pg (27.0-33.0); Mean Corpuscular Volume 90.7 fL (80.0-98.0); Mean Platelet Volume 11.2 fL (9.4-12.4); Monocytes Absolute Auto 0.1 X10*3/uL (0.1-1.2); Monocytes Percent Auto 2.1 % (2-11); Neutrophils Absolute Auto 5.5 x10*3/uL (2.0-8.3); Neutrophils Percent Auto 88.2 % (45-73); Platelet Count 267 X10*3/uL (160-400); Red Blood Count 3.98 X10*6/uL (4.60-5.80); Red Cell Distribution Width 13.5 % (11.0-16.0); White Blood Count 6.2 X10*3/uL (4.8-10.8)
[2023-11-26] MEDS: cefTRIAXone sodium 2 GM in 0.9 % Sodium Chloride 50 ML IV (10:55)
--- NOTE | 2023-11-26 11:48 | MHC.CM.PN ---
EMR reviewed. Per MD rounds patient is not medically cleared for dc. Plan remains STR. Updates sent to [facility]. CM will continue to follow.
--- NOTE | 2023-11-26 12:18 | P.PNGS_ITS ---
Subjective Subjective Date of Service: 11/26/23 Interval history: ERCP unable to be performed yesterday. Awaiting IR PTC. Physical Exam 2 Vital Signs: Vital Signs: Last Vital Signs Temp 97.6 F 11/26/23 07:54 Pulse 62 11/26/23 07:54 Resp 18 11/26/23 07:54 BP 122/76 11/26/23 07:54 Pulse Ox 98 11/26/23 07:54 O2 Del Method Room Air 11/26/23 11:09 BMI result Body Mass Index 20.0 Const: General: comfortable, no acute distress and alert GI: Inspection: No distended Palpation (GI): Soft to palpation, Tenderness to palpation present (GI) in the RUQ (mild) and no guarding Skin: General skin exam: no rashes or lesions noted and jaundice Objective Data Active Medications Acetaminophen (Acetaminophen 325 Mg Tablet) 650 mg PO Q6H PRN PRN Reason: Pain, Mild (Pain Scale 1-3) Benzonatate (Benzonatate 100 Mg Capsule) 100 mg PO TID PRN PRN Reason: Cough Docusate Sodium (Docusate Sodium 100 Mg Capsule) 100 mg PO DAILY PRN PRN Reason: Constipation Ceftriaxone Sodium 2 gm/ (Sodium Chloride) 50 mls @ 100 mls/hr IV Q24H [facility] Last Infusion: 11/26/23 11:33 Dose: Infused Documented By: CYNTHIA Ketorolac Tromethamine (Ketorolac Tromethamine 10 Mg Tablet) 10 mg PO Q6H PRN PRN Reason: Pain, Moderate(Pain Scale 4-6) Stop: 11/29/23 09:33 Last Admin: 11/26/23 11:30 Dose: 10 mg Documented By: CYNTHIA Melatonin (Melatonin 3 Mg Tablet) 6 mg PO BEDTIME PRN PRN Reason: Insomnia Last Admin: 11/26/23 00:06 Dose: 6 mg Documented By: ERIQC Morphine Sulfate (Morphine Sulfate 4 Mg/Ml Cartridge) 1 mg IVPUSH Q4H PRN; Protocol PRN Reason: Pain, Severe (Pain Scale 7-10) Ondansetron HCl (Ondansetron Hcl 4 Mg/2 Ml Vial) 4 mg IVPUSH Q8H PRN PRN Reason: Nausea and Vomiting Sodium Chloride (0.9 % Sodium Chloride Flush 3 Ml Syringe) [facility] Last Admin: 11/26/23 08:38 Dose: 3 ml Documented By: CYNTHIA Labs 11/26/23 05:47 11/25/23 07:51 Labs: Laboratory Results - last 24 hr 11/24/23 11/26/23 11/26/23 04:33 05:47 09:30 MCV 90.7 MCH 30.9 MCHC 34.1 RDW 13.5 Plt Count 267 MPV 11.2 Immature Gran % (Auto) 0.3 Neut % (Auto) 88.2 H Lymph % (Auto) 9.4 L [place] % (Auto) 2.1 Eos % (Auto) 0.0 Baso % (Auto) 0.0 Lymph # (Auto) 0.6 L [place] # (Auto) 0.1 Eos # (Auto) 0.0 Baso # (Auto) 0.0 Abs Immat Gran (auto) 0.02 Absolute Neuts (auto) 5.5 Absolute Nucleated RBC 0.000 Nucleated RBC % (auto) 0.0 Hold Purple Top SEE NOTE PT 11.5 INR 0.9 Total Bilirubin 1.8 H Direct Bilirubin 1.4 H AST 26 ALT 47 H Alkaline Phosphatase 466 H Total Protein 5.6 L Albumin 2.6 L Alpha Fetoprotein 3.7 Blood Type O Positive Antibody Screen NEGATIVE Microbiology Microbiology Results: Microbiology 11/23/23 17:58 Blood Culture - Preliminary Blood - Venous Escherichia coli 11/23/23 17:58 Blood Culture - Preliminary Blood - Venous Escherichia coli Procedures Date of Service Date of Service: 11/26/23 Progress Note: A&P Assessment and plan (1) Choledocholithiasis: Status: Acute (2) Acute cholangitis: Status: Acute Plan Awaiting IR PTC and possible cholangioscopy, drainage. Further plan on IR intervention. Time Spent With Patient Time: Total time managing care of this patient today ____ minutes. Quality Stroke Does the patient have a stroke diagnosis?: No VTE Prior VTE?: No VTE Risk Level:: Medical - moderate - high VTE Device Contraindication: N/A - Device Ordered VTE Drug Contraindication: Treatment Not Indicated
--- NOTE | 2023-11-26 13:20 | MHC.SHP ---
Pre-Procedural Eval Section A - 24 Hr Update-Section A only Date of Service: 11/26/23 The patient is an INPATIENT: Yes The patient has been examined within 24 hours of the surgical procedure. The History & Physical has been completed within 30 days and I have reviewed it.: Yes Section B - Complete if H&P > 30 days Chief Complaint: Cholangitis Allergies: Allergies Allergy/AdvReac Type Severity Reaction Status Date / Time No Known Allergies Allergy Verified 11/23/23 15:21 Plan I have reviewed the history and physical and performed a pertinent physical examination on my patient. No changes have occurred unless specified. Time Spent With Patient Time: Total time managing care of this patient today ____ minutes.
[2023-11-26] MEDS: Acetaminophen 325 MG TABLET 650 MG PO (15:42)
[2023-11-26] MEDS: oxyCODONE HCl Immed Release 5 MG TABLET PO (19:43)
[2023-11-27] VITALS (8 sets, daily range): BP systolic 102–136; BP diastolic 63–79; PULSE 54–70; RESP 16–20; TEMP 36–37.1; O2SAT 96–99
[2023-11-27] MEDS: Ketorolac Tromethamine 10 MG TABLET PO ×3 (00:08→19:46)
[2023-11-27] MEDS: 0.9 % Sodium Chloride Flush 3 ML SYRINGE IVFLUSH ×4 (00:09→23:03)
[2023-11-27] MEDS: oxyCODONE HCl Immed Release 5 MG TABLET PO ×4 (02:00→23:03)
[2023-11-27 06:38] LABS: Alanine Aminotransferase 38 U/L (0-40); Albumin Level 2.7 g/dL (3.5-5.0); Alkaline Phosphatase 372 U/L (39-117); Aspartate Amino Transferase 21 U/L (5-37); Bilirubin Direct 0.8 mg/dL (0.0-0.5); Bilirubin Total 1.2 mg/dL (0.0-1.0); Total Protein 5.6 g/dL (6.5-8.0)
[2023-11-27 07:25] LABS: Anion Gap 14 (12-20)
[2023-11-27 07:27] LABS: Blood Urea Nitrogen 13 mg/dL (9-16); Calcium 8.8 mg/dL (8.4-10.2); Carbon Dioxide 22 mmol/L (22-29); Chloride 105 mmol/L (96-108); Creatinine Clr Calc Pharmacy 134.3; Estimated Glomerular Filt Rate > 60; Glucose Random 100 mg/dL (60-115); Potassium 3.9 mmol/L (3.3-5.1); Sodium 137 mmol/L (135-145)
--- NOTE | 2023-11-27 08:13 | P.PNGS_ITS ---
Subjective Subjective Date of Service: 11/27/23 Interval history: Underwent IR biliary drainage catheter yesterday. Physical Exam 2 Vital Signs: Vital Signs: Last Vital Signs Temp 96.8 F 11/27/23 07:42 Pulse 54 11/27/23 07:42 Resp 18 11/27/23 07:42 BP 126/72 11/27/23 07:42 Pulse Ox 97 11/27/23 07:42 O2 Del Method Room Air 11/27/23 07:42 BMI result Body Mass Index 20.0 Const: General: comfortable, no acute distress and alert O rientation/consciousness: patient oriented x3 Resp: Effort & Inspection: normal respiratory effort GI: Other: drainage bag with bilious output, catheter enters anterior abdomen subxyphoid Inspection: No distended Palpation (GI): Soft to palpation and Tenderness to palpation present (GI) in the RUQ Skin: General skin exam: jaundice Neuro: General: patient oriented x3 Objective Data Active Medications Acetaminophen (Acetaminophen 325 Mg Tablet) 650 mg PO Q6H PRN PRN Reason: Pain, Mild (Pain Scale 1-3) Last Admin: 11/26/23 15:42 Dose: 650 mg Documented By: JOSE Benzonatate (Benzonatate 100 Mg Capsule) 100 mg PO TID PRN PRN Reason: Cough Docusate Sodium (Docusate Sodium 100 Mg Capsule) 100 mg PO DAILY PRN PRN Reason: Constipation Ceftriaxone Sodium 2 gm/ (Sodium Chloride) 50 mls @ 100 mls/hr IV Q24H COUNTS INCLUDE 234 BEDS AT THE [facility] Last Infusion: 11/26/23 11:33 Dose: Infused Documented By: CYNTHIA Ketorolac Tromethamine (Ketorolac Tromethamine 10 Mg Tablet) 10 mg PO Q6H PRN PRN Reason: Pain, Moderate(Pain Scale 4-6) Stop: 11/29/23 09:33 Last Admin: 11/27/23 00:08 Dose: 10 mg Documented By: ANTOIC Melatonin (Melatonin 3 Mg Tablet) 6 mg PO BEDTIME PRN PRN Reason: Insomnia Last Admin: 11/26/23 00:06 Dose: 6 mg Documented By: BONNIE Morphine Sulfate (Morphine Sulfate 4 Mg/Ml Cartridge) 1 mg IVPUSH Q4H PRN; Protocol PRN Reason: Pain, Severe (Pain Scale 7-10) Ondansetron HCl (Ondansetron Hcl 4 Mg/2 Ml Vial) 4 mg IVPUSH Q8H PRN PRN Reason: Nausea and Vomiting Oxycodone HCl (Oxycodone Hcl Immed Release 5 Mg Tablet) 5 mg PO Q6H PRN PRN Reason: Pain, Severe (Pain Scale 7-10) Last Admin: 11/27/23 02:00 Dose: 5 mg Documented By: SHREYA Sodium Chloride (0.9 % Sodium Chloride Flush 3 Ml Syringe) 3 ml IVFLUSH QSHIFT COUNTS [facility]CLUDE 234 BEDS AT THE [facility] Last Admin: 11/27/23 00:09 Dose: 3 ml Documented By: ANTOIC Labs 11/26/23 05:47 11/27/23 05:45 Labs: Laboratory Results - last 24 hr 11/26/23 11/26/23 11/27/23 05:47 09:30 05:45 MCV 90.7 MCH 30.9 MCHC 34.1 RDW 13.5 Plt Count 267 MPV 11.2 Immature Gran % (Auto) 0.3 Neut % (Auto) 88.2 H Lymph % (Auto) 9.4 L [place] % (Auto) 2.1 Eos % (Auto) 0.0 Baso % (Auto) 0.0 Lymph # (Auto) 0.6 L [place] # (Auto) 0.1 Eos # (Auto) 0.0 Baso # (Auto) 0.0 Abs Immat Gran (auto) 0.02 Absolute Neuts (auto) 5.5 Absolute Nucleated RBC 0.000 Nucleated RBC % (auto) 0.0 Hold Purple Top SEE NOTE PT 11.5 INR 0.9 Anion Gap 14 Estim Creat Clear Calc 134.3 Estimated GFR > 60 Random Glucose 100 Calcium 8.8 Total Bilirubin 1.2 H Direct Bilirubin 0.8 H AST 21 ALT 38 Alkaline Phosphatase 372 H Total Protein 5.6 L Albumin 2.7 L Blood Type O Positive Antibody Screen NEGATIVE Microbiology Microbiology Results: Microbiology 11/23/23 17:58 Blood Culture - Preliminary Blood - Venous Escherichia coli 11/23/23 17:58 Blood Culture - Preliminary Blood - Venous Escherichia coli Procedures Date of Service Date of Service: 11/27/23 Progress Note: A&P Assessment and plan (1) Choledocholithiasis: Status: Acute (2) Acute cholangitis: Status: Acute Plan Admitted with choledocolithiasis, cholangitis. ERCP attempted and unable to be performed. Underwent IR biliary drainage catheter yesterday. LFTs have significantly improved since admission. Plan for lap nydia today. Risks, benefits, alternatives of laparoscopic possible open cholecystectomy were reviewed with the patient including but not limited to bleeding, infection, numbness, pain, poor healing, injury to the liver, bowel or bile ducts, leak, retained stones and the patient wishes to proceed.?All questions were answered. Time Spent With Patient Time: Total time managing care of this patient today ____ minutes. Quality Stroke Does the patient have a stroke diagnosis?: No VTE Prior VTE?: No VTE Risk Level:: Medical - moderate - high VTE Device Contraindication: N/A - Device Ordered VTE Drug Contraindication: Treatment Not Indicated
[2023-11-27] MEDS: cefTRIAXone sodium 2 GM in 0.9 % Sodium Chloride 50 ML IV (09:00)
[2023-11-27] MEDS: Morphine Sulfate 4 MG/ML CARTRIDGE 1 MG IVPUSH ×2 (09:01→18:40)
--- NOTE | 2023-11-27 09:18 | HO.PM.IMPN ---
Subjective Subjective Date of Service: 11/27/23 Interval History: f/u on sepsis, cholangitis, GNR bacteremia interval history:s/p internal-external biliary drainage yesterday, no pain, no fever. For CCY today Physical Exam Vital Signs: Vital Signs: Last Vital Signs Temp 96.8 F 11/27/23 07:42 Pulse 54 11/27/23 07:42 Resp 18 11/27/23 09:01 BP 126/72 11/27/23 07:42 Pulse Ox 97 11/27/23 07:42 O2 Del Method Room Air 11/27/23 07:42 BMI result Body Mass Index 20.0 General: AO X 3, no acute distress Resp: CTA bilateral CVS: S1,S2,RRR GI: +BS, NT, no distention, biliary catheter in place with bilious drainage Skin: No rash Neuro: motor grossly intact Psych: appropriate affect Objective Data Active Medications Acetaminophen (Acetaminophen 325 Mg Tablet) 650 mg PO Q6H PRN PRN Reason: Pain, Mild (Pain Scale 1-3) Last Admin: 11/26/23 15:42 Dose: 650 mg Documented By: JOSE Benzonatate (Benzonatate 100 Mg Capsule) 100 mg PO TID PRN PRN Reason: Cough Docusate Sodium (Docusate Sodium 100 Mg Capsule) 100 mg PO DAILY PRN PRN Reason: Constipation Ceftriaxone Sodium 2 gm/ (Sodium Chloride) 50 mls @ 100 mls/hr IV Q24H [facility] Last Admin: 11/27/23 09:00 Dose: 100 mls/hr Documented By: COTEMA Ketorolac Tromethamine (Ketorolac Tromethamine 10 Mg Tablet) 10 mg PO Q6H PRN PRN Reason: Pain, Moderate(Pain Scale 4-6) Stop: 11/29/23 09:33 Last Admin: 11/27/23 00:08 Dose: 10 mg Documented By: ANTOIC Melatonin (Melatonin 3 Mg Tablet) 6 mg PO BEDTIME PRN PRN Reason: Insomnia Last Admin: 11/26/23 00:06 Dose: 6 mg Documented By: BONNIE Morphine Sulfate (Morphine Sulfate 4 Mg/Ml Cartridge) 1 mg IVPUSH Q4H PRN; Protocol PRN Reason: Pain, Severe (Pain Scale 7-10) Last Admin: 11/27/23 09:01 Dose: 1 mg Documented By: RODO Ondansetron HCl (Ondansetron Hcl 4 Mg/2 Ml Vial) 4 mg IVPUSH Q8H PRN PRN Reason: Nausea and Vomiting Oxycodone HCl (Oxycodone Hcl Immed Release 5 Mg Tablet) 5 mg PO Q6H PRN PRN Reason: Pain, Severe (Pain Scale 7-10) Last Admin: 11/27/23 02:00 Dose: 5 mg Documented By: ANTOIC Sodium Chloride (0.9 % Sodium Chloride Flush 3 Ml Syringe) 3 ml IVFLUSH [facility] Last Admin: 11/27/23 09:00 Dose: 3 ml Documented By: RODO Labs 11/26/23 05:47 11/27/23 05:45 Labs: Laboratory Results - last 24 hr 11/26/23 11/26/23 11/27/23 05:47 09:30 05:45 MCV 90.7 MCH 30.9 MCHC 34.1 RDW 13.5 Plt Count 267 MPV 11.2 Immature Gran % (Auto) 0.3 Neut % (Auto) 88.2 H Lymph % (Auto) 9.4 L [place] % (Auto) 2.1 Eos % (Auto) 0.0 Baso % (Auto) 0.0 Lymph # (Auto) 0.6 L [place] # (Auto) 0.1 Eos # (Auto) 0.0 Baso # (Auto) 0.0 Abs Immat Gran (auto) 0.02 Absolute Neuts (auto) 5.5 Absolute Nucleated RBC 0.000 Nucleated RBC % (auto) 0.0 Hold Purple Top SEE NOTE PT 11.5 INR 0.9 Anion Gap 14 Estim Creat Clear Calc 134.3 Estimated GFR > 60 Random Glucose 100 Calcium 8.8 Total Bilirubin 1.2 H Direct Bilirubin 0.8 H AST 21 ALT 38 Alkaline Phosphatase 372 H Total Protein 5.6 L Albumin 2.7 L Blood Type O Positive Antibody Screen NEGATIVE Microbiology Microbiology Results: Microbiology 11/23/23 17:58 Blood Culture - Preliminary Blood - Venous Escherichia coli 11/23/23 17:58 Blood Culture - Preliminary Blood - Venous Escherichia coli Assessment and Plan (1) Acute cholangitis: Status: Acute (2) Biliary disease with obstruction: Status: Acute Assessment and Plan: 68/m with h/o ?right hip fracture s/p surgical repair 1 month prior currently at STR, appendectomy, and cervical fracture s/p C4-C5 fusion in 1979 not on chronic meds who presented with?RUQ pain. and found to have sepsis d/t cholangitis Sepsis d/t Acute cholangitis--MRCP CBD and IHP duct dilation, no mas- -Was on Zosyn (11/23 to 11/25), Ceftriaxone for E.coli 11/25 -ERCP 11/24 was unsucesful -s/p IR guided internal-external biliary drainage catheter on 11/25 -gi recommends IR guided tube placement -for CCY today -NPO, IVF and analgesics -follow LFTs Sepsis/E coli bacteremia--related to above -continueCeftriaxone as above, recent history of right hip fracture and rehab--Therapy as before, WB as tlated Incidental CT findings CT of abdomen also found BPH and UPJ obstruction--assymptoamtic, outpatient uro follow up Full Code DVT Prophylaxis: Penumatic boots, add heparin after ERCP inpt d/t acute cholangitis, sepis, bacteremia requiring IV and monitong response, high risk for M&M Quality Stroke Does the patient have a stroke diagnosis?: No VTE Prior VTE?: No VTE Risk Level:: Medical - moderate - high VTE Device Contraindication: N/A - Device Ordered VTE Drug Contraindication: Treatment Not Indicated
--- NOTE | 2023-11-27 12:32 | P.PNGI_ITS ---
Subjective Subjective Date of Service: 11/27/23 Interval History: Patient seen and evaluated at bedside. 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 Status post 8 Fr internal external biliary stent placement by IR 5/8. White count and LFTs improving. Bilirubin down to 1.2 today. Critical Care Time (minutes): 0 Physical Exam 2 Vital Signs: Vital Signs: Last Vital Signs Temp 96.8 F 11/27/23 12:00 Pulse 54 11/27/23 12:00 Resp 18 11/27/23 12:00 BP 133/79 11/27/23 12:00 Pulse Ox 97 11/27/23 12:00 O2 Del Method Room Air 11/27/23 12:00 BMI result Body Mass Index 20.0 NAD Nonicteric Abd soft, nontender Objective Data Labs 11/26/23 05:47 11/27/23 05:45 Labs: Laboratory Results - last 24 hr 11/27/23 05:45 Hold Purple Top SEE NOTE Sodium 137 Potassium 3.9 Chloride 105 Carbon Dioxide 22 Anion Gap 14 BUN 13 Creatinine 0.62 Estim Creat Clear Calc 134.3 Estimated GFR > 60 Random Glucose 100 Calcium 8.8 Total Bilirubin 1.2 H Direct Bilirubin 0.8 H AST 21 ALT 38 Alkaline Phosphatase 372 H Total Protein 5.6 L Albumin 2.7 L Microbiology Microbiology Results: Microbiology 11/23/23 17:58 Blood - Venous Blood Culture - Preliminary Escherichia coli 11/23/23 17:58 Blood - Venous Blood Culture - Preliminary Escherichia coli Procedures Date of Service Date of Service: 11/27/23 Progress Note: A&P Assessment and plan (1) Choledocholithiasis: Status: Acute (2) Acute cholangitis: Status: Acute (3) Cholecystitis: Status: Acute Plan Biliary obstruction resolved with placement of internal external 8 [place] biliary stent by IR 5/8. Scheduled for cholecystectomy today. Will be seen by IR in 1-2 weeks for capping trial and further management as needed. Time Spent With Patient Time: Total time managing care of this patient today ____ minutes. Quality Stroke Does the patient have a stroke diagnosis?: No VTE Prior VTE?: No VTE Risk Level:: Medical - moderate - high VTE Device Contraindication: N/A - Device Ordered VTE Drug Contraindication: Treatment Not Indicated
--- NOTE | 2023-11-27 14:30 | PM.EVENT ---
Event Note Date of Service: 11/27/23 Event Note: Interventional Radiology Progress Note: S: Reports some discomfort at the drainage catheter site. States he is having his gallbladder removed today O: 96.8/ 54/ 133/79/ 18/ 100% RA Gen NAD Abdomen: soft, flat, appropriately ttp epigastrium. Biliary drain in place with clear bile draining Skin: warm and dry. Dressing c/d/i A: 68 y/o man admitted with cholangitis due to choledocholithiasis. 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 POD1 s/p Left internal/external biliary drain placement -Bilirubins improving -Keep to gravity drainage for now -Will arrange for drain upsize in 2 weeks after discharge followed by biliary endoscopy for treatment of his large CBD stone Jacques MICHELE Interventional Radiology Time Spent With Patient Time: Total time managing care of this patient today ____ minutes.
[2023-11-27] MEDS: Melatonin 3 MG TABLET 6 MG PO (19:46)
[2023-11-28] VITALS (15 sets, daily range): BP systolic 108–137; BP diastolic 69–87; PULSE 52–92; RESP 16–18; TEMP 36–36.9; O2SAT 95–99
[2023-11-28] MEDS: Morphine Sulfate 4 MG/ML CARTRIDGE 1 MG IVPUSH ×4 (06:28→23:31)
[2023-11-28 07:25] LABS: Glucose, Whole Blood 88 mg/dL (60-115)
[2023-11-28] MEDS: oxyCODONE HCl Immed Release 5 MG TABLET PO ×2 (08:02→19:55)
[2023-11-28] MEDS: 0.9 % Sodium Chloride Flush 3 ML SYRINGE IVFLUSH ×2 (08:02→19:56)
--- NOTE | 2023-11-28 08:31 | P.PNIM_ITS ---
Subjective Subjective Date of Service: 11/28/23 Interval History: f/u on sepsis, cholangitis, GNR bacteremia interval history:s/p internal-external biliary drainage 11/25, no pain, no fever. CCY postpone until today Physical Exam 2 Vital Signs: Vital Signs: Last Vital Signs Temp 96.8 F 11/28/23 07:16 Pulse 57 11/28/23 07:16 Resp 16 11/28/23 07:16 BP 136/83 11/28/23 07:16 Pulse Ox 96 11/28/23 07:16 O2 Del Method Room Air 11/28/23 07:16 BMI result Body Mass Index 20.0 General: AO X 3, no acute distress Resp: CTA bilateral CVS: S1,S2,RRR GI: +BS, NT, no distention, biliary catheter in place with bilious drainage Skin: No rash Neuro: motor grossly intact Psych: appropriate affect Objective Data Active Medications Acetaminophen (Acetaminophen 325 Mg Tablet) 650 mg PO Q6H PRN PRN Reason: Pain, Mild (Pain Scale 1-3) Last Admin: 11/26/23 15:42 Dose: 650 mg Documented By: JOSE Benzonatate (Benzonatate 100 Mg Capsule) 100 mg PO TID PRN PRN Reason: Cough Docusate Sodium (Docusate Sodium 100 Mg Capsule) 100 mg PO DAILY PRN PRN Reason: Constipation Ceftriaxone Sodium 2 gm/ (Sodium Chloride) 50 mls @ 100 mls/hr IV Q24H [facility] Last Infusion: 11/27/23 09:38 Dose: Infused Documented By: COTANNEMARIE Ketorolac Tromethamine (Ketorolac Tromethamine 10 Mg Tablet) 10 mg PO Q6H PRN PRN Reason: Pain, Moderate(Pain Scale 4-6) Stop: 11/29/23 09:33 Last Admin: 11/27/23 19:46 Dose: 10 mg Documented By: BONNIE Melatonin (Melatonin 3 Mg Tablet) 6 mg PO BEDTIME PRN PRN Reason: Insomnia Last Admin: 11/27/23 19:46 Dose: 6 mg Documented By: BONNIE Morphine Sulfate (Morphine Sulfate 4 Mg/Ml Cartridge) 1 mg IVPUSH Q4H PRN; Protocol PRN Reason: Pain, Severe (Pain Scale 7-10) Last Admin: 11/28/23 06:28 Dose: 1 mg Documented By: ERIQC Ondansetron HCl (Ondansetron Hcl 4 Mg/2 Ml Vial) 4 mg IVPUSH Q8H PRN PRN Reason: Nausea and Vomiting Oxycodone HCl (Oxycodone Hcl Immed Release 5 Mg Tablet) 5 mg PO Q6H PRN PRN Reason: Pain, Severe (Pain Scale 7-10) Last Admin: 11/28/23 08:02 Dose: 5 mg Documented By: ODESSAEMA Sodium Chloride (0.9 % Sodium Chloride Flush 3 Ml Syringe) [facility] Last Admin: 11/28/23 08:02 Dose: 3 ml Documented By: COTEMA Labs 11/26/23 05:47 11/27/23 05:45 Labs: Laboratory Results - last 24 hr 11/28/23 07:14 POC Glucose 88 Microbiology Microbiology Results: Microbiology 11/23/23 17:58 Blood Culture - Final Blood - Venous Escherichia coli 11/23/23 17:58 Blood Culture - Final Blood - Venous Escherichia coli Assessment and Plan (1) Acute cholangitis: Status: Acute (2) Biliary disease with obstruction: Status: Acute Assessment and Plan: 68/m with h/o ?right hip fracture s/p surgical repair 1 month prior currently at [facility], appendectomy, and cervical fracture s/p C4-C5 fusion in 1979 not on chronic meds who presented with?RUQ pain. and found to have sepsis d/t cholangitis Sepsis d/t Acute cholangitis--MRCP CBD and IHP duct dilation, no mass- -Was on Zosyn (11/23 to 11/25), Ceftriaxone for E.coli 11/25 -ERCP 11/24 was unsucesful -s/p IR guided internal-external biliary drainage catheter on 11/25 -for CCY planned for today, postpone yesterday d/t no OR time -NPO, IVF and analgesics -follow LFTs Sepsis/E coli bacteremia--related to above -continue Ceftriaxone as above, recent history of right hip fracture and rehab--Therapy as before, WB as tlated Incidental CT findings CT of abdomen also found BPH and UPJ obstruction--assymptoamtic, outpatient uro follow up Full Code DVT Prophylaxis: Penumatic boots, add heparin after surgery inpt d/t acute cholangitis, sepis, bacteremia requiring IV and monitong response, high risk for M&M Quality Stroke Does the patient have a stroke diagnosis?: No VTE Prior VTE?: No VTE Risk Level:: Medical - moderate - high VTE Device Contraindication: N/A - Device Ordered VTE Drug Contraindication: Treatment Not Indicated
[2023-11-28] MEDS: cefTRIAXone sodium 2 GM in 0.9 % Sodium Chloride 50 ML IV (10:29)
--- NOTE | 2023-11-28 12:20 | MHC.CM.PN ---
Addendum entered by Jo-Ann Shoemaker RN 11/28/23 16:01: OC updated Original Note: EMR reviewed. Per MD rounds patient scheduled for OR today, not ready for dc. CM will continue to follow.
--- NOTE | 2023-11-28 14:14 | MHC.SHP ---
Pre-Procedural Eval Section A - 24 Hr Update-Section A only Date of Service: 11/28/23 The patient is an INPATIENT: Yes Changes since office visit: No Cold of Flu in the past 2 weeks, No New Medical Problems, No Changes in Medication and No Patient answered all questions The patient has been examined within 24 hours of the surgical procedure. The History & Physical has been completed within 30 days and I have reviewed it.: Yes Section B - Complete if H&P > 30 days Chief Complaint: Cholangitis Allergies: Allergies Allergy/AdvReac Type Severity Reaction Status Date / Time No Known Allergies Allergy Verified 11/23/23 15:21 Plan I have reviewed the history and physical and performed a pertinent physical examination on my patient. No changes have occurred unless specified. Time Spent With Patient Time: Total time managing care of this patient today ____ minutes.
--- NOTE | 2023-11-28 14:43 | P.CONAN_ITS ---
HPI - Anesthesia Eval Consult details Narrative: 68 yo M admitted with cholecystitis PMFSH Active Problems Active Problems: All Active Problems Cholecystitis (Acute) Choledocholithiasis (Acute) Dilated cbd, acquired (Acute) Acute cholangitis (Acute) Biliary disease with obstruction (Acute) Past Medical History Medical History Closed right hip fracture Family History Family history of problems with anesthesia: No Surgical History Surgical History History of appendectomy History of Problems with Anesthesia: No Social History Social History Household Members: None Household Members Other:: at rehab facility Housing: [facility] Do you presently have visiting nurse or other home services: No Alcohol intake: former Comment: Refusing bed in lowest position. Patient Tobacco Use Status: Never used Tobacco service: No Meds Allergies Allergy/AdvReac Type Severity Reaction Status Date / Time No Known Allergies Allergy Verified 11/23/23 15:21 Active Medications: Current Medications Acetaminophen (Acetaminophen 325 Mg Tablet) 650 mg PO Q6H PRN PRN Reason: Pain, Mild (Pain Scale 1-3) Last Admin: 11/26/23 15:42 Dose: 650 mg Benzonatate (Benzonatate 100 Mg Capsule) 100 mg PO TID PRN PRN Reason: Cough Docusate Sodium (Docusate Sodium 100 Mg Capsule) 100 mg PO DAILY PRN PRN Reason: Constipation Ceftriaxone Sodium 2 gm/ (Sodium Chloride) 50 mls @ 100 mls/hr IV Q24H [facility] Last Infusion: 11/28/23 11:07 Dose: Infused Ketorolac Tromethamine (Ketorolac Tromethamine 10 Mg Tablet) 10 mg PO Q6H PRN PRN Reason: Pain, Moderate(Pain Scale 4-6) Stop: 11/29/23 09:33 Last Admin: 11/27/23 19:46 Dose: 10 mg Melatonin (Melatonin 3 Mg Tablet) 6 mg PO BEDTIME PRN PRN Reason: Insomnia Last Admin: 11/27/23 19:46 Dose: 6 mg Morphine Sulfate (Morphine Sulfate 4 Mg/Ml Cartridge) 1 mg IVPUSH Q4H PRN; Protocol PRN Reason: Pain, Severe (Pain Scale 7-10) Last Admin: 11/28/23 11:14 Dose: 1 mg Ondansetron HCl (Ondansetron Hcl 4 Mg/2 Ml Vial) 4 mg IVPUSH Q8H PRN PRN Reason: Nausea and Vomiting Oxycodone HCl (Oxycodone Hcl Immed Release 5 Mg Tablet) 5 mg PO Q6H PRN PRN Reason: Pain, Severe (Pain Scale 7-10) Last Admin: 11/28/23 08:02 Dose: 5 mg Sodium Chloride (0.9 % Sodium Chloride Flush 3 Ml Syringe) [facility] Last Admin: 11/28/23 08:02 Dose: 3 ml Home Medications ?Medication ?Instructions ?Recorded ?Confirmed ?Last Taken ?Type aspirin 500 mg tablet 1,000 mg PO Q4H PRN Pain 11/24/23 11/24/23 10/17/23 History Exam Exam Date and Time: November 28, 2023 1440 Height,Weight and Vital Signs: Height 6 ft 9 in Weight 84.5 kg Last Vital Signs Temp 97.9 F 11/28/23 12:27 Pulse 52 11/28/23 12:27 Resp 16 11/28/23 12:27 BP 129/76 11/28/23 12:27 Pulse Ox 98 11/28/23 12:27 O2 Del Method Room Air 11/28/23 12:27 Pertinent Lab Results Pertinent Lab Results: Laboratory Tests 11/23/23 11/23/23 11/24/23 16:09 16:59 04:33 WBC 15.6 H 15.8 H RBC 4.35 L 4.34 L Hgb 13.7 L 13.2 L Hct 40.0 L 40.0 L MCV 92.0 92.2 MCH 31.5 30.4 MCHC 34.3 33.0 RDW 13.5 13.8 Plt Count 244 214 MPV 10.1 11.7 Immature Gran % (Auto) Cancelled Neut % (Auto) Cancelled Lymph % (Auto) Cancelled [place] % (Auto) Cancelled Eos % (Auto) Cancelled Baso % (Auto) Cancelled Lymph # (Auto) Cancelled [place] # (Auto) Cancelled Eos # (Auto) Cancelled Baso # (Auto) Cancelled Abs Immat Gran (auto) Cancelled Absolute Neuts (auto) Cancelled Absolute Nucleated RBC 0.000 0.000 Nucleated RBC % (auto) 0.0 0.0 Neutrophils % (Manual) 75 H Band Neutrophils % 20 H Lymphocytes % (Manual) 1 L Monocytes % (Manual) 4 Abs Neuts (Manual) 14.8 H Lymphocytes # (Manual) 0.2 L Monocytes # (Manual) 0.6 Toxic Vacuolation PRESENT Platelet Estimate NORMAL Plt Morphology Comment NORMAL RBC Morphology NORMAL Smear Tech's Comments MANUAL DIFF Hold Purple Top PT INR APTT 33.2 Sodium 135 137 Potassium 4.0 4.9 D Chloride 97 101 Carbon Dioxide 25 24 Anion Gap 17 17 BUN 12 15 Creatinine 0.73 0.77 Estim Creat Clear Calc 114.1 108.2 Estimated GFR > 60 > 60 POC Glucose Random Glucose 123 H 101 Lactic Acid 1.7 Calcium 9.4 8.8 D Total Bilirubin 3.7 H 5.0 H Direct Bilirubin 3.0 H AST 260 H 158 H ALT 142 H 117 H Alkaline Phosphatase 818 H 654 H Troponin I High Sens 4.7 Total Protein 6.7 5.9 L Albumin 3.3 L 2.9 L Lipase 20 Alpha Fetoprotein 3.7 Carcinoembryonic Ag < 1.73 Procalcitonin 6.56 Urine Color Dark Yellow Urine Appearance Clear Urine pH 5.5 Ur Specific [place] 1.015 Urine Protein Negative Urine Glucose (UA) Negative Urine Ketones Negative Urine Blood Negative Urine Nitrite Negative Ur Leukocyte Esterase Trace H Urine RBC 0-2 Urine WBC 0-5 Ur Squamous Epith Cells 0-2 Urine Bacteria None Seen Hyaline Casts 0-2 Hepatitis A IgM Ab Nonreactive Hep Bs Antigen Negative Hep Bs Antibody NONREACTIVE Hep B Core Total Ab Nonreactive Hepatitis C Ab (EIA) Reactive H Blood Type Antibody Screen 11/25/23 11/26/23 11/26/23 07:51 05:47 09:30 WBC 9.8 6.2 RBC 3.77 L 3.98 L Hgb 12.0 L 12.3 L Hct 34.4 L 36.1 L MCV 91.2 90.7 MCH 31.8 30.9 MCHC 34.9 34.1 RDW 13.7 13.5 Plt Count 229 267 MPV 10.5 11.2 Immature Gran % (Auto) 0.3 Neut % (Auto) 88.2 H Lymph % (Auto) 9.4 L [place] % (Auto) 2.1 Eos % (Auto) 0.0 Baso % (Auto) 0.0 Lymph # (Auto) 0.6 L [place] # (Auto) 0.1 Eos # (Auto) 0.0 Baso # (Auto) 0.0 Abs Immat Gran (auto) 0.02 Absolute Neuts (auto) 5.5 Absolute Nucleated RBC 0.000 0.000 Nucleated RBC % (auto) 0.0 0.0 Neutrophils % (Manual) Band Neutrophils % Lymphocytes % (Manual) Monocytes % (Manual) Abs Neuts (Manual) Lymphocytes # (Manual) Monocytes # (Manual) Toxic Vacuolation Platelet Estimate Plt Morphology Comment RBC Morphology Smear Tech's Comments Hold Purple Top SEE NOTE PT 11.5 INR 0.9 APTT Sodium 135 Potassium 3.9 D Chloride 103 Carbon Dioxide 21 L Anion Gap 15 BUN 17 H Creatinine 0.63 Estim Creat Clear Calc 132.2 Estimated GFR > 60 POC Glucose Random Glucose 78 Lactic Acid Calcium 8.6 Total Bilirubin 4.3 H 1.8 H Direct Bilirubin 3.5 H 1.4 H AST 50 H 26 ALT 63 H 47 H Alkaline Phosphatase 511 H 466 H Troponin I High Sens Total Protein 5.4 L 5.6 L Albumin 2.5 L 2.6 L Lipase Alpha Fetoprotein Carcinoembryonic Ag Procalcitonin Urine Color Urine Appearance Urine pH Ur Specific [place] Urine Protein Urine Glucose (UA) Urine Ketones Urine Blood Urine Nitrite Ur Leukocyte Esterase Urine RBC Urine WBC Ur Squamous Epith Cells Urine Bacteria Hyaline Casts Hepatitis A IgM Ab Hep Bs Antigen Hep Bs Antibody Hep B Core Total Ab Hepatitis C Ab (EIA) Blood Type O Positive Antibody Screen NEGATIVE 11/27/23 11/28/23 05:45 07:14 WBC RBC Hgb Hct MCV MCH MCHC RDW Plt Count MPV Immature Gran % (Auto) Neut % (Auto) Lymph % (Auto) [place] % (Auto) Eos % (Auto) Baso % (Auto) Lymph # (Auto) [place] # (Auto) Eos # (Auto) Baso # (Auto) Abs Immat Gran (auto) Absolute Neuts (auto) Absolute Nucleated RBC Nucleated RBC % (auto) Neutrophils % (Manual) Band Neutrophils % Lymphocytes % (Manual) Monocytes % (Manual) Abs Neuts (Manual) Lymphocytes # (Manual) Monocytes # (Manual) Toxic Vacuolation Platelet Estimate Plt Morphology Comment RBC Morphology Smear Tech's Comments Hold Purple Top SEE NOTE PT INR APTT Sodium 137 Potassium 3.9 Chloride 105 Carbon Dioxide 22 Anion Gap 14 BUN 13 Creatinine 0.62 Estim Creat Clear Calc 134.3 Estimated GFR > 60 POC Glucose 88 Random Glucose 100 Lactic Acid Calcium 8.8 Total Bilirubin 1.2 H Direct Bilirubin 0.8 H AST 21 ALT 38 Alkaline Phosphatase 372 H Troponin I High Sens Total Protein 5.6 L Albumin 2.7 L Lipase Alpha Fetoprotein Carcinoembryonic Ag Procalcitonin Urine Color Urine Appearance Urine pH Ur Specific [place] Urine Protein Urine Glucose (UA) Urine Ketones Urine Blood Urine Nitrite Ur Leukocyte Esterase Urine RBC Urine WBC Ur Squamous Epith Cells Urine Bacteria Hyaline Casts Hepatitis A IgM Ab Hep Bs Antigen Hep Bs Antibody Hep B Core Total Ab Hepatitis C Ab (EIA) Blood Type Antibody Screen Airway Mallampati Class: II TM Dist: >3cm Neck ROM: Full Loose/Missing/Broken Teeth: Yes (poor dentition) Heart: S1S2 Lungs: CTAB Assessment and Plan Assessment Anesthesia Assessment: Anesthesia Plan Discussed and Chart Reviewed Final Anesthetic Review Family History of Problems with Anesthesia: No History of Problems with Anesthesia: No NPO: Yes ASA Class: II Final Preanesthetic Review: No Changes in Pt Med Stat, Meds/Allgs Chart Reviewed, Consent Obtained/Reviewed and Anes Risks/Benef Reviewed Patient Risk: Low Procedure Risk: Low Anesthetic Plan Anesthetic Plan: GA and Agree w/ Assess. and Plan Disposition: Standard PACU
--- NOTE | 2023-11-28 16:11 | P.OP_ITS ---
Operative Note Operative Note Date of Service: 11/28/23 Narrative: Preop diagnosis; cholangitis, choledocholithiasis Postop diagnosis: [] The same Procedure [] laparoscopic cholecystectomy Surgeon; Dionicio Solder Deposit Operator: [] Sam Type of Anesthesia: [] Gen. Indication for surgery: [] Patient was admitted with cholangitis secondary to choledocholithiasis. He has had attempted ERCP and transhepatic percutaneous drainage of his biliary system. Laparoscopic cholecystectomy to remove source of choledocholithiasis. Intraoperative findings demonstrated gallbladder with omental adhesions to it. A percutaneous catheter placed by Interventional Radiology entered the left lobe of the liver and was not disturbed. Findings: [] Patient brought to the operating room, placed on operative table supine position, and after an adequate level of general anesthesia was induced, the patient's abdomen was prepped and draped in usual sterile fashion. Using a supraumbilical curvilinear incision, Melendrez technique was used to insufflate abdominal cavity to 15 mm of CO2. Upper midline and right subcostal ports were placed under direct laparoscopic view, and the patient placed in reverse Trendelenburg position, and tilted to the left. Omental adhesions swept off the gallbladder with the hilum was approached. Cystic artery and cystic duct were each identified, circumferentially skeletonized, each traced directly into the gallbladder, and critical view obtained. Each was clipped proximally x2, distally x1, and transected gallbladder which was moderately intrahepatic was then cauterized from the gallbladder fossa using Bovie. Specimen was placed in an Endo-Catch bag, a retrieved through the umbilical port. Abdominal cavity was copiously irrigated, and secured hemostasis. All ports removed under direct laparoscopic view. Wounds were closed in the following manner; umbilical wound is fascia reapproximated using interrupted 0 Vicryl sutures. Skin wounds were closed in subcuticular 4-0 Vicryl sutures followed by Steri-Strips and sterile dressings. Wounds were infiltrated 0.5% Marcaine at completion. Sponge, needle, and instrument counts reported correct. Patient tolerated the procedure well and emerged from anesthesia stable condition. EBL minimal
[2023-11-28] MEDS: HYDROmorphone HCl 0.5 MG/0.5 ML SYRINGE IVPUSH ×3 (16:20→16:55)
[2023-11-29] MEDS: oxyCODONE HCl Immed Release 5 MG TABLET PO ×3 (02:18→17:27)
[2023-11-29 03:18] VITALS: BP 124/82; PULSE 61; RESP 18; TEMP 36.1; O2SAT 97
[2023-11-29] MEDS: Morphine Sulfate 4 MG/ML CARTRIDGE 1 MG IVPUSH (03:28)
[2023-11-29] MEDS: Ketorolac Tromethamine 10 MG TABLET PO (05:53)
[2023-11-29 06:52] LABS: Hematocrit 38.1 % (42.0-52.0); Hemoglobin 12.9 g/dl (14.0-18.0); Mean Corpuscular HGB Conc 33.9 g/dl (31.0-36.0); Mean Corpuscular Hemoglobin 30.7 pg (27.0-33.0); Mean Corpuscular Volume 90.7 fL (80.0-98.0); Mean Platelet Volume 11.9 fL (9.4-12.4); Platelet Count 260 X10*3/uL (160-400); Red Cell Distribution Width 14.1 % (11.0-16.0); White Blood Count 13.3 X10*3/uL (4.8-10.8)
[2023-11-29 07:26] LABS: Glucose, Whole Blood 104 mg/dL (60-115)
[2023-11-29 07:52] LABS: Alanine Aminotransferase 32 U/L (0-40); Albumin Level 2.8 g/dL (3.5-5.0); Alkaline Phosphatase 286 U/L (39-117); Anion Gap 13 (12-20); Aspartate Amino Transferase 31 U/L (5-37); Bilirubin Direct 0.7 mg/dL (0.0-0.5); Blood Urea Nitrogen 8 mg/dL (9-16); Calcium 8.8 mg/dL (8.4-10.2); Carbon Dioxide 26 mmol/L (22-29); Chloride 101 mmol/L (96-108); Creatinine Clr Calc Pharmacy 136.6; Estimated Glomerular Filt Rate > 60; Glucose Random 98 mg/dL (60-115); Potassium 4.1 mmol/L (3.3-5.1); Sodium 136 mmol/L (135-145); Total Protein 5.8 g/dL (6.5-8.0)
[2023-11-29 08:00] VITALS: BP 124/73; PULSE 63; RESP 18; TEMP 36.4; O2SAT 97
[2023-11-29 08:18] LABS: Carbohydrate Antigen 19-9 60 U/mL (<34)
--- NOTE | 2023-11-29 09:18 | HO.POSTANES ---
Post Anesthesia Evaluation Post Anesthesia Evaluation Date of Service: 11/29/23 Vital Signs: Vital Signs Temp Pulse Resp BP Pulse Ox O2 Del Method 11/29/23 08:00 97.5 F 63 18 124/73 97 Room Air 11/29/23 03:18 97 F 61 18 124/82 97 Room Air Anesthesia: General Endotracheal-GETA Mental Status: Awake Pain Control: Satisfactory Nausea/Vomiting: None Hydration: Adequate Anesthesia-Related Issues: No Anes. Related Issues
[2023-11-29] MEDS: cefTRIAXone sodium 2 GM in 0.9 % Sodium Chloride 50 ML IV (09:19)
[2023-11-29] MEDS: 0.9 % Sodium Chloride Flush 3 ML SYRINGE IVFLUSH ×3 (09:20→23:13)
--- NOTE | 2023-11-29 10:27 | HO.PM.IMPN ---
Subjective Subjective Date of Service: 11/29/23 Interval History: f/u on sepsis, cholangitis, GNR bacteremia interval history:s/p internal-external biliary drainage 11/25, s/p CCY on 11/27 has some pain this morning, but tolerating diet Physical Exam Vital Signs: Vital Signs: Last Vital Signs Temp 97.5 F 11/29/23 08:00 Pulse 63 11/29/23 08:00 Resp 18 11/29/23 08:00 BP 124/73 11/29/23 08:00 Pulse Ox 97 11/29/23 08:00 O2 Del Method Room Air 11/29/23 08:00 O2 Flow Rate 6 11/28/23 16:15 BMI result Body Mass Index 20.0 General: AO X 3, no acute distress Resp: CTA bilateral CVS: S1,S2,RRR GI: +BS, NT, no distention, biliary catheter in place with bilious drainage, mild tenderness around incision, no rebound, no distention Skin: No rash Neuro: motor grossly intact Psych: appropriate affect Objective Data Active Medications Acetaminophen (Acetaminophen 325 Mg Tablet) 650 mg PO Q6H PRN PRN Reason: Pain, Mild (Pain Scale 1-3) Last Admin: 11/26/23 15:42 Dose: 650 mg Documented By: JOSE Benzonatate (Benzonatate 100 Mg Capsule) 100 mg PO TID PRN PRN Reason: Cough Docusate Sodium (Docusate Sodium 100 Mg Capsule) 100 mg PO DAILY PRN PRN Reason: Constipation Haloperidol Lactate (Haloperidol Lactate 5 Mg/Ml Vial) 0.5 mg IVPUSH ONCE PRN PRN Reason: Nausea and Vomiting Ceftriaxone Sodium 2 gm/ (Sodium Chloride) 50 mls @ 100 mls/hr IV Q24H [facility] Last Admin: 11/29/23 09:19 Dose: 100 mls/hr Documented By: IMER Melatonin (Melatonin 3 Mg Tablet) 6 mg PO BEDTIME PRN PRN Reason: Insomnia Last Admin: 11/27/23 19:46 Dose: 6 mg Documented By: BONNIE Ondansetron HCl (Ondansetron Hcl 4 Mg/2 Ml Vial) 4 mg IVPUSH Q8H PRN PRN Reason: Nausea and Vomiting Oxycodone HCl (Oxycodone Hcl Immed Release 5 Mg Tablet) 5 mg PO Q6H PRN PRN Reason: Pain, Severe (Pain Scale 7-10) Last Admin: 11/29/23 09:19 Dose: 5 mg Documented By: IMER Sodium Chloride (0.9 % Sodium Chloride Flush 3 Ml Syringe) [facility] Last Admin: 11/29/23 09:20 Dose: 3 ml Documented By: IMER Labs 11/29/23 06:16 11/29/23 07:17 Labs: Laboratory Results - last 24 hr 11/24/23 11/29/23 11/29/23 04:33 06:16 07:06 MCV 90.7 MCH 30.7 MCHC 33.9 RDW 14.1 Plt Count 260 MPV 11.9 Absolute Nucleated RBC 0.000 Nucleated RBC % (auto) 0.0 Anion Gap Estim Creat Clear Calc Estimated GFR POC Glucose 104 Random Glucose Calcium Total Bilirubin Cancelled Direct Bilirubin Cancelled AST Cancelled ALT Cancelled Alkaline Phosphatase Cancelled Total Protein Cancelled Albumin Cancelled CA 19-9 Antigen 60 H 11/29/23 07:17 MCV MCH MCHC RDW Plt Count MPV Absolute Nucleated RBC Nucleated RBC % (auto) Anion Gap 13 Estim Creat Clear Calc 136.6 Estimated GFR > 60 POC Glucose Random Glucose 98 Calcium 8.8 Total Bilirubin 1.0 Direct Bilirubin 0.7 H AST 31 ALT 32 Alkaline Phosphatase 286 H Total Protein 5.8 L Albumin 2.8 L CA 19-9 Antigen Microbiology Microbiology Results: Microbiology 11/23/23 17:58 Blood Culture - Final Blood - Venous Escherichia coli 11/23/23 17:58 Blood Culture - Final Blood - Venous Escherichia coli Assessment and Plan (1) Acute cholangitis: Status: Acute (2) Biliary disease with obstruction: Status: Acute Assessment and Plan: 68/m with h/o ?right hip fracture s/p surgical repair 1 month prior currently at [facility], appendectomy, and cervical fracture s/p C4-C5 fusion in 1979 not on chronic meds who presented with?RUQ pain. and found to have sepsis d/t cholangitis Sepsis d/t Acute cholangitis--MRCP CBD and IHP duct dilation, no mass -Was on Zosyn (11/23 to 11/25), Ceftriaxone for E.coli 11/25 -ERCP 11/24 was unsucesful -s/p IR guided internal-external biliary drainage catheter on 11/25 -s/p Lap CCY on 11/27 -diet per surger, pain management -LFTs are now normal Sepsis/E coli bacteremia--related to above -continue Ceftriaxone as above, probably to PO Ceftin at discharge for total of 14 days recent history of right hip fracture and rehab--Therapy as before, WB as tolerated Incidental CT findings CT of abdomen also found BPH and UPJ obstruction--assymptoamtic, outpatient uro follow up Full Code DVT Prophylaxis: Penumatic boots, add heparin after surgery inpt d/t acute cholangitis, sepis, bacteremia requiring IV and monitong response, high risk for M&M Quality Stroke Does the patient have a stroke diagnosis?: No VTE Prior VTE?: No VTE Risk Level:: Medical - moderate - high VTE Device Contraindication: N/A - Device Ordered VTE Drug Contraindication: Treatment Not Indicated
[2023-11-29] MEDS: Morphine Sulfate 2 MG/ML CARTRIDGE IVPUSH ×3 (10:55→19:20)
--- NOTE | 2023-11-29 11:34 | PM.PNGS ---
Subjective Subjective Date of Service: 11/29/23 Interval history: pt complaining of pain in RUQ area but nothing terrible tolerating diet hepatic duct tube draining lots of bile - 600cc this am alone Physical Exam Vital Signs: Vital Signs: Last Vital Signs Temp 97.5 F 11/29/23 08:00 Pulse 63 11/29/23 08:00 Resp 18 11/29/23 08:00 BP 124/73 11/29/23 08:00 Pulse Ox 97 11/29/23 08:00 O2 Del Method Room Air 11/29/23 08:00 O2 Flow Rate 6 11/28/23 16:15 BMI result Body Mass Index 20.0 Const: General: cooperative, healthy appearing, comfortable and no acute distress GI: Other: abdo soft tender at ruq area abdo little distended dressings clean Skin: Other: nonicteric Objective Data Active Medications Acetaminophen (Acetaminophen 325 Mg Tablet) 650 mg PO Q6H PRN PRN Reason: Pain, Mild (Pain Scale 1-3) Last Admin: 11/26/23 15:42 Dose: 650 mg Documented By: JOSE Benzonatate (Benzonatate 100 Mg Capsule) 100 mg PO TID PRN PRN Reason: Cough Docusate Sodium (Docusate Sodium 100 Mg Capsule) 100 mg PO DAILY PRN PRN Reason: Constipation Haloperidol Lactate (Haloperidol Lactate 5 Mg/Ml Vial) 0.5 mg IVPUSH ONCE PRN PRN Reason: Nausea and Vomiting Ceftriaxone Sodium 2 gm/ (Sodium Chloride) 50 mls @ 100 mls/hr IV Q24H [facility] Last Infusion: 11/29/23 10:00 Dose: Infused Documented By: IMER Melatonin (Melatonin 3 Mg Tablet) 6 mg PO BEDTIME PRN PRN Reason: Insomnia Last Admin: 11/27/23 19:46 Dose: 6 mg Documented By: BONNIE Morphine Sulfate (Morphine Sulfate 2 Mg/Ml Cartridge) 2 mg IVPUSH Q4H PRN; Protocol PRN Reason: Pain, Severe (Pain Scale 7-10) Last Admin: 11/29/23 10:55 Dose: 2 mg Documented By: IMER Ondansetron HCl (Ondansetron Hcl 4 Mg/2 Ml Vial) 4 mg IVPUSH Q8H PRN PRN Reason: Nausea and Vomiting Oxycodone HCl (Oxycodone Hcl Immed Release 5 Mg Tablet) 5 mg PO Q6H PRN PRN Reason: Pain, Moderate(Pain Scale 4-6) Sodium Chloride (0.9 % Sodium Chloride Flush 3 Ml Syringe) 3 ml IVFLUSH QSHIFT [facility] Last Admin: 11/29/23 09:20 Dose: 3 ml Documented By: IMER Labs 11/29/23 06:16 11/29/23 07:17 Labs: Laboratory Results - last 24 hr 11/24/23 11/29/23 11/29/23 04:33 06:16 07:06 MCV 90.7 MCH 30.7 MCHC 33.9 RDW 14.1 Plt Count 260 MPV 11.9 Absolute Nucleated RBC 0.000 Nucleated RBC % (auto) 0.0 Anion Gap Estim Creat Clear Calc Estimated GFR POC Glucose 104 Random Glucose Calcium Total Bilirubin Cancelled Direct Bilirubin Cancelled AST Cancelled ALT Cancelled Alkaline Phosphatase Cancelled Total Protein Cancelled Albumin Cancelled CA 19-9 Antigen 60 H 11/29/23 07:17 MCV MCH MCHC RDW Plt Count MPV Absolute Nucleated RBC Nucleated RBC % (auto) Anion Gap 13 Estim Creat Clear Calc 136.6 Estimated GFR > 60 POC Glucose Random Glucose 98 Calcium 8.8 Total Bilirubin 1.0 Direct Bilirubin 0.7 H AST 31 ALT 32 Alkaline Phosphatase 286 H Total Protein 5.8 L Albumin 2.8 L CA 19-9 Antigen Procedures Date of Service Date of Service: 11/29/23 Progress Note: A&P Assessment and plan (1) S/P laparoscopic cholecystectomy: Status: Acute Assessment and Plan: pt pod#1 sp lap nydia and s/p drainage of biliary duct transcutaneous - overally doing well plan to cont with bile tube and encourage advance po and po pain meds med team to plan for dc and then will need to return for management of biliary tube and eventualy duct stone extraction - or else may need open procedure Pt understands and agrees with plan Time Spent With Patient Time: Total time managing care of this patient today ____ minutes. Quality Stroke Does the patient have a stroke diagnosis?: No VTE Prior VTE?: No VTE Risk Level:: Medical - moderate - high VTE Device Contraindication: N/A - Device Ordered VTE Drug Contraindication: Treatment Not Indicated
[2023-11-29 14:00] VITALS: O2SAT 95
[2023-11-29 16:00] VITALS: BP 115/67; PULSE 85; RESP 12; TEMP 36.4; O2SAT 97
[2023-11-29 19:55] LABS: Glucose, Whole Blood 102 mg/dL (60-115)
[2023-11-29 20:00] VITALS: BP 117/69; PULSE 87; RESP 18; TEMP 36.6; O2SAT 65
[2023-11-29] MEDS: oxyCODONE HCl Immed Release 5 MG TABLET 10 MG PO (23:12)
[2023-11-30 03:56] VITALS: BP 120/67; PULSE 75; RESP 20; TEMP 36.3; O2SAT 97
[2023-11-30] MEDS: oxyCODONE HCl Immed Release 5 MG TABLET 10 MG PO ×3 (05:42→22:40)
[2023-11-30 07:25] VITALS: BP 128/76; PULSE 83; RESP 18; TEMP 36.5; O2SAT 96
[2023-11-30] MEDS: Enoxaparin Sodium 40 MG/0.4 ML SYRINGE SUBCUT (08:14)
[2023-11-30] MEDS: 0.9 % Sodium Chloride Flush 3 ML SYRINGE IVFLUSH ×2 (08:15→19:32)
[2023-11-30] MEDS: Morphine Sulfate 2 MG/ML CARTRIDGE IVPUSH ×3 (08:15→19:31)
--- NOTE | 2023-11-30 09:07 | P.PNIM_ITS ---
Subjective Subjective Date of Service: 11/30/23 Interval History: f/u on sepsis, cholangitis, GNR bacteremia interval history:s/p internal-external biliary drainage 11/25, s/p CCY on 11/27 has some pain this morning, but tolerating diet Physical Exam 2 Vital Signs: Vital Signs: Last Vital Signs Temp 97.7 F 11/30/23 07:25 Pulse 83 11/30/23 07:25 Resp 18 11/30/23 07:25 BP 128/76 11/30/23 07:25 Pulse Ox 96 11/30/23 07:25 O2 Del Method Room Air 11/30/23 07:25 O2 Flow Rate 6 11/28/23 16:15 Oxygen Flow Rate 3 11/29/23 14:00 BMI result Body Mass Index 20.0 General: AO X 3, no acute distress Resp: CTA bilateral CVS: S1,S2,RRR GI: +BS, NT, no distention, biliary catheter in place with bilious drainage, mild tenderness around incision, no rebound, no distention Skin: No rash Neuro: motor grossly intact Psych: appropriate affect Objective Data Active Medications Acetaminophen (Acetaminophen 325 Mg Tablet) 650 mg PO Q6H PRN PRN Reason: Pain, Mild (Pain Scale 1-3) Last Admin: 11/26/23 15:42 Dose: 650 mg Documented By: JOSE Benzonatate (Benzonatate 100 Mg Capsule) 100 mg PO TID PRN PRN Reason: Cough Docusate Sodium (Docusate Sodium 100 Mg Capsule) 100 mg PO DAILY PRN PRN Reason: Constipation Enoxaparin Sodium (Enoxaparin Sodium 40 Mg/0.4 Ml Syringe) 40 mg SUBCUT Q24H [facility] Last Admin: 11/30/23 08:14 Dose: 40 mg Documented By: JHONNY Haloperidol Lactate (Haloperidol Lactate 5 Mg/Ml Vial) 0.5 mg IVPUSH ONCE PRN PRN Reason: Nausea and Vomiting Ceftriaxone Sodium 2 gm/ (Sodium Chloride) 50 mls @ 100 mls/hr IV Q24H [facility] Last Infusion: 11/29/23 10:00 Dose: Infused Documented By: IMER Melatonin (Melatonin 3 Mg Tablet) 6 mg PO BEDTIME PRN PRN Reason: Insomnia Last Admin: 11/27/23 19:46 Dose: 6 mg Documented By: BONNIE Morphine Sulfate (Morphine Sulfate 2 Mg/Ml Cartridge) 2 mg IVPUSH Q4H PRN; Protocol PRN Reason: Pain, Severe (Pain Scale 7-10) Last Admin: 11/30/23 08:15 Dose: 2 mg Documented By: JHONNY Ondansetron HCl (Ondansetron Hcl 4 Mg/2 Ml Vial) 4 mg IVPUSH Q8H PRN PRN Reason: Nausea and Vomiting Oxycodone HCl (Oxycodone Hcl Immed Release 5 Mg Tablet) 5 mg PO Q6H PRN PRN Reason: Pain, Moderate(Pain Scale 4-6) Last Admin: 11/29/23 17:27 Dose: 5 mg Documented By: IMER Oxycodone HCl (Oxycodone Hcl Immed Release 5 Mg Tablet) 10 mg PO Q4H PRN PRN Reason: Pain, Severe (Pain Scale 7-10) Last Admin: 11/30/23 05:42 Dose: 10 mg Documented By: MARGE Sodium Chloride (0.9 % Sodium Chloride Flush 3 Ml Syringe) [facility] Last Admin: 11/30/23 08:15 Dose: 3 ml Documented By: JHONNY Labs 11/29/23 06:16 11/29/23 07:17 Labs: Laboratory Results - last 24 hr 11/29/23 19:48 POC Glucose 102 Assessment and Plan (1) Acute cholangitis: Status: Acute (2) Biliary disease with obstruction: Status: Acute Assessment and Plan: 68/m with h/o ?right hip fracture s/p surgical repair 1 month prior currently at [facility], appendectomy, and cervical fracture s/p C4-C5 fusion in 1979 not on chronic meds who presented with?RUQ pain. and found to have sepsis d/t cholangitis Sepsis d/t Acute cholangitis--MRCP CBD and IHP duct dilation, no mass -Was on Zosyn (11/23 to 11/25), Ceftriaxone for E.coli 11/25 -ERCP 11/24 was unsucesful -s/p IR guided internal-external biliary drainage catheter on 11/25 -s/p Lap CCY on 11/27 -diet per surger, pain management -LFTs are now normal Sepsis/E coli bacteremia--related to above -continue Ceftriaxone as above, probably to PO Ceftin or Augmentin at discharge for total of 14 days recent history of right hip fracture and rehab--Therapy as before, WB as tolerated, dvt prophylaxis with lovenox Incidental CT findings CT of abdomen also found BPH and UPJ obstruction--assymptoamtic, outpatient uro follow up Full Code DVT Prophylaxis: Penumatic boots, Lovenox inpt d/t acute cholangitis, sepis, bacteremia requiring IV and monitong response, high risk for M&M anticipating discharge tomorrow Quality Stroke Does the patient have a stroke diagnosis?: No VTE Prior VTE?: No VTE Risk Level:: Medical - moderate - high VTE Device Contraindication: N/A - Device Ordered VTE Drug Contraindication: Treatment Not Indicated
[2023-11-30] MEDS: cefTRIAXone sodium 2 GM in 0.9 % Sodium Chloride 50 ML IV (10:07)
--- NOTE | 2023-11-30 13:20 | P.PNGS_ITS ---
Subjective Subjective Date of Service: 11/30/23 Interval history: Patient's right upper quadrant pain is improved but still little bit there. Able to tolerate p.o. diet well. Biliary drain is still draining significant bile. Physical Exam 2 Vital Signs: Vital Signs: Last Vital Signs Temp 97.7 F 11/30/23 07:25 Pulse 83 11/30/23 07:25 Resp 18 11/30/23 07:25 BP 128/76 11/30/23 07:25 Pulse Ox 96 11/30/23 07:25 O2 Del Method Room Air 11/30/23 07:25 O2 Flow Rate 6 11/28/23 16:15 Oxygen Flow Rate 3 11/29/23 14:00 BMI result Body Mass Index 20.0 GI: Other: His abdomen is soft nondistended mildly tender in the right upper quadrant area incision site dressings are dry. Skin: Other: Nonicteric Objective Data Active Medications Acetaminophen (Acetaminophen 325 Mg Tablet) 650 mg PO Q6H PRN PRN Reason: Pain, Mild (Pain Scale 1-3) Last Admin: 11/26/23 15:42 Dose: 650 mg Documented By: JOSE Benzonatate (Benzonatate 100 Mg Capsule) 100 mg PO TID PRN PRN Reason: Cough Docusate Sodium (Docusate Sodium 100 Mg Capsule) 100 mg PO DAILY PRN PRN Reason: Constipation Enoxaparin Sodium (Enoxaparin Sodium 40 Mg/0.4 Ml Syringe) 40 mg SUBCUT Q24H [facility] Last Admin: 11/30/23 08:14 Dose: 40 mg Documented By: JHONNY Haloperidol Lactate (Haloperidol Lactate 5 Mg/Ml Vial) 0.5 mg IVPUSH ONCE PRN PRN Reason: Nausea and Vomiting Ceftriaxone Sodium 2 gm/ (Sodium Chloride) 50 mls @ 100 mls/hr IV Q24H [facility] Last Infusion: 11/30/23 10:55 Dose: Infused Documented By: IMER Melatonin (Melatonin 3 Mg Tablet) 6 mg PO BEDTIME PRN PRN Reason: Insomnia Last Admin: 11/27/23 19:46 Dose: 6 mg Documented By: BONNIE Morphine Sulfate (Morphine Sulfate 2 Mg/Ml Cartridge) 2 mg IVPUSH Q4H PRN; Protocol PRN Reason: Pain, Severe (Pain Scale 7-10) Last Admin: 11/30/23 12:45 Dose: 2 mg Documented By: IMER Ondansetron HCl (Ondansetron Hcl 4 Mg/2 Ml Vial) 4 mg IVPUSH Q8H PRN PRN Reason: Nausea and Vomiting Oxycodone HCl (Oxycodone Hcl Immed Release 5 Mg Tablet) 5 mg PO Q6H PRN PRN Reason: Pain, Moderate(Pain Scale 4-6) Last Admin: 11/29/23 17:27 Dose: 5 mg Documented By: IMER Oxycodone HCl (Oxycodone Hcl Immed Release 5 Mg Tablet) 10 mg PO Q4H PRN PRN Reason: Pain, Severe (Pain Scale 7-10) Last Admin: 11/30/23 05:42 Dose: 10 mg Documented By: MARGE Sodium Chloride (0.9 % Sodium Chloride Flush 3 Ml Syringe) [facility] Last Admin: 11/30/23 08:15 Dose: 3 ml Documented By: JHONNY Labs 11/29/23 06:16 11/29/23 07:17 Labs: Laboratory Results - last 24 hr 11/29/23 19:48 POC Glucose 102 Procedures Date of Service Date of Service: 11/30/23 Progress Note: A&P Assessment and plan (1) S/P laparoscopic cholecystectomy: Status: Acute Assessment and Plan: 68-year-old male status post laparoscopic cholecystectomy doing well from this prior the procedure however he probably has a common bile duct stone that is obstructing and secondary to the failed ERCP necessitated direct biliary drainage. The drain is functioning well and plan is for Interventional Radiology to eventually go in and try to extract the stone that way. At this point patient is doing well and from postop. Can be discharged home or to rehab in this case and then follow up with us in the office in about a week. Medical team to manage arrangements with Interventional Radiology to return for further procedures. Patient understands and agrees with the above plan Time Spent With Patient Time: Total time managing care of this patient today ____ minutes. Quality Stroke Does the patient have a stroke diagnosis?: No VTE Prior VTE?: No VTE Risk Level:: Medical - moderate - high VTE Device Contraindication: N/A - Device Ordered VTE Drug Contraindication: Treatment Not Indicated
[2023-11-30 14:00] VITALS: O2SAT 96
[2023-11-30 16:00] VITALS: BP 107/69; PULSE 84; RESP 15; TEMP 36.5; O2SAT 95
[2023-11-30 19:21] VITALS: BP 107/63; PULSE 84; RESP 18; TEMP 36.5; O2SAT 98
[2023-12-01] MEDS: Morphine Sulfate 2 MG/ML CARTRIDGE IVPUSH ×3 (00:54→14:22)
[2023-12-01] MEDS: oxyCODONE HCl Immed Release 5 MG TABLET 10 MG PO ×3 (03:41→16:02)
[2023-12-01 04:00] VITALS: BP 121/72; PULSE 73; RESP 16; TEMP 36; O2SAT 97
[2023-12-01 05:55] LABS: Hematocrit 39.1 % (42.0-52.0); Hemoglobin 13.4 g/dl (14.0-18.0); Mean Corpuscular HGB Conc 34.3 g/dl (31.0-36.0); Mean Corpuscular Hemoglobin 31.4 pg (27.0-33.0); Mean Corpuscular Volume 91.6 fL (80.0-98.0); Mean Platelet Volume 10.8 fL (9.4-12.4); Platelet Count 355 X10*3/uL (160-400); Red Blood Count 4.27 X10*6/uL (4.60-5.80); Red Cell Distribution Width 13.7 % (11.0-16.0)
[2023-12-01 06:08] LABS: Anion Gap 14 (12-20); Blood Urea Nitrogen 10 mg/dL (9-16); Carbon Dioxide 26 mmol/L (22-29); Chloride 98 mmol/L (96-108); Creatinine Clr Calc Pharmacy 138.8; Estimated Glomerular Filt Rate > 60; Glucose Random 95 mg/dL (60-115); Potassium 4.2 mmol/L (3.3-5.1); Sodium 134 mmol/L (135-145)
[2023-12-01 07:24] VITALS: BP 109/60; PULSE 98; RESP 18; TEMP 36.4; O2SAT 96
--- NOTE | 2023-12-01 08:18 | HO.POSTANES ---
Post Anesthesia Evaluation Post Anesthesia Evaluation Date of Service: 12/01/23 Vital Signs: Vital Signs Temp Pulse Resp BP Pulse Ox O2 Del Method 12/01/23 07:24 97.5 F 98 18 109/60 96 Room Air 12/01/23 04:00 96.8 F 73 16 121/72 97 Room Air Anesthesia: General Endotracheal-GETA Mental Status: Awake Pain Control: Satisfactory Nausea/Vomiting: None Hydration: Adequate Anesthesia-Related Issues: No Anes. Related Issues
[2023-12-01] MEDS: Enoxaparin Sodium 40 MG/0.4 ML SYRINGE SUBCUT (08:26)
[2023-12-01] MEDS: 0.9 % Sodium Chloride Flush 3 ML SYRINGE IVFLUSH (08:26)
--- NOTE | 2023-12-01 09:14 | P.DS_ITS ---
DS: Providers Provider Date of Service: 12/01/23 Date of admission: 11/23/23 20:46 Primary care physician: Rosy Dahl MD Consults: 11/23/23 19:44 Consult to Gastroenterology Routine Consulting Provider: Catherine Mancuso Reason for consultation: Biliary obstruction, acute cholangitis Has provider been notified: Yes 11/25/23 07:32 Consult to General Surgery Routine Consulting Provider: [facility] Reason for consultation: choledocholithiasis, cholangitis, 11/25/23 07:42 Consult to Infectious Diseases Routine Consulting Provider: [facility] [place] Infectious Disease Reason for consultation: Sepsis Bacteremia Has provider been notified: No DS: Diagnosis Discharge Diagnosis (1) S/P laparoscopic cholecystectomy: Status: Acute DS: Summary Hospital Course Hospital Course: admission hpi Chief Complaint: Abdominal pain Pt is a -year-old [ male ]with a PMH significant for?right hip fracture s/p surgical repair 1 month prior currently at [facility], appendectomy, and cervical fracture s/p C4-C5 fusion in 1979 not on home medications who presents to the ED with?RUQ pain. Patient states he woke up in normal state of health and ate breakfast without incident. Shortly before noon patient began developing discomfort in his right upper quadrant and right flank. After eating lunch discomfort developed into outright pain and patient developed sudden onset of nausea and shaking chills. Was seen by nursing at SNF and sent to the ED for further evaluation. Patient states pain has been constant since onset, though waxing and waning in intensity. Wraps around right flank and to back. Denies vomiting. Patient denies similar symptoms in the past. No chest pain/pressure, palpitations. No shortness of breath. In the ED pt was tachycardic up to 109 with other vital signs WNL. Labs were significant for leukocytosis of 15.6, bands 20%, bilirubin 3.7, AST 260, ALT 142, and alk-phos 818. No significant electrolyte abnormalities. Renal function WNL. UA negative for UTI. CT?of abdomen and pelvis found marked intrahepatic and extrahepatic biliary dilation with a 2.4 cm soft tissue mass in distal CBD, as well as distended gallbladder and wall thickening with minimal pericholecystic fluid. Incidentally noted hepatosplenomegaly, diverticulosis without diverticulitis, BPH, and left UPJ obstruction. EKG demonstrated normal sinus rhythm without evidence of significant ST elevations or depressions. Pt was treated with IVF, ondansetron, ketorolac, morphine, and Zosyn. Pt will be admitted to the hospital for treatment and further evaluation of acute cholangitis with sepsis. Hospital course: The patient presented with abdominal pain and was found to have elevated liver function tests (LFTs), elevated bilirubin levels, and leukocytosis. A CT scan of the abdomen and pelvis revealed significant dilation of both the intrahepatic and extrahepatic bile ducts, along with a 2.4 cm soft tissue mass in the distal common bile duct (CBD). Additionally, the gallbladder was distended with wall thickening and minimal pericholecystic fluid. The patient was admitted with sepsis due to acute cholangitis, confirmed by MRCP which showed CBD and intrahepatic ductal dilation but no mass. An attempt at ERCP on 11/24 was unsuccessful, leading to the insertion of an IR- guided internal-external biliary drainage catheter on 11/25. The patient received Zosyn from 11/23 to 11/25, and blood cultures ultimately identified E. coli sensitive to Ceftriaxone. Antibiotic therapy was switched to Ceftriaxone IV from 11/25 until present (11/30). An infectious disease expert recommended transitioning to oral antibiotics (Ceftin 500 mg twice daily) upon discharge for a total of 21 days, 11 more days to go On 11/27, the patient underwent cholecystectomy and is now tolerating a regular diet. The biliary drain will remain in place for reassessment and removal by IR at a later time elevated LFTS d/t above -LFTs are now normal recent history of right hip fracture and rehab--Therapy as before, WB as tolerated, dvt prophylaxis with lovenox while in hospital, was no longer on DVT prophylaxis before admisson for surgery that was done last month. Oxycodone PRN for pain Incidental CT findings CT of abdomen also found BPH and UPJ obstruction--assymptoamtic, outpatient uro follow up Time Attestation Discharge Coordination Time (in mins): 45 Quality: Safe Use of Opioids Does Pt have an Active Cancer Diagnosis on the Problem List?: No Quality: Stroke Does the patient have a stroke diagnosis?: No Physical Exam Vital Signs: Vital Signs: Last Vital Signs Temp 97.5 F 12/01/23 07:24 Pulse 98 12/01/23 07:24 Resp 18 12/01/23 07:24 BP 109/60 12/01/23 07:24 Pulse Ox 96 12/01/23 07:24 O2 Del Method Room Air 12/01/23 07:24 O2 Flow Rate 6 11/28/23 16:15 Oxygen Flow Rate 3 11/29/23 14:00 BMI result Body Mass Index 20.0 General: AO X 3, no acute distress Resp: CTA bilateral CVS: S1,S2,RRR GI: +BS, NT, no distention Skin: No rash Neuro: motor grossly intact Psych: appropriate affect DS: Data Data Completed and Pending Pending studies at discharge: Pending at discharge 11/28/23 15:53 Surgical [PTH] Routine Labs on day of discharge: Laboratory Results - last 24 hr 12/01/23 05:21 WBC 14.0 H RBC 4.27 L Hgb 13.4 L Hct 39.1 L MCV 91.6 MCH 31.4 MCHC 34.3 RDW 13.7 Plt Count 355 D MPV 10.8 Absolute Nucleated RBC 0.000 Nucleated RBC % (auto) 0.0 Sodium 134 L Potassium 4.2 Chloride 98 Carbon Dioxide 26 Anion Gap 14 BUN 10 Creatinine 0.60 Estim Creat Clear Calc 138.8 Estimated GFR > 60 Random Glucose 95 Calcium 9.0 Discharge Plan Discharge Anticipated Discharge Date/Time: 12/01/23 09:05 Patient Disposition: Xfer [facility] Discharge Diagnosis: Acute Cholangitis, E. coli bacteremia Referrals: [facility] [place] [Outside] - 1 Day (short term rehab) Rosy Dahl MD [Primary Care Provider] - 1 Week Paul Greenberg MD [Physician] - 1 Week Hyatt,RYNE Hanna [Physician Line Patroller] - 2 Weeks (Radiology will contact you for an appointment for upsize/change for your biliary drain) Discharge Medications: New hydrocodone-acetaminophen 5-325 mg tablet 1 tab PO Q4-6H PRN (Reason: pain) Qty: 30 0RF Rx Instructions: Partial Fill upon patient request. docusate sodium 100 mg Capsule 100 mg PO DAILY PRN (Reason: Constipation) Qty: 30 0RF melatonin 3 mg Tablet 6 mg PO BEDTIME PRN (Reason: Insomnia) Qty: 30 0RF cefuroxime axetil 500 mg tablet 500 mg PO BID 11 Days Qty: 22 0RF acetaminophen 325 mg Tablet 650 mg PO Q6H PRN (Reason: Pain, Mild (Pain Scale 1-3)) Qty: 30 0RF Discontinued [place] Aspirin 500 mg Tablet 1,000 mg PO Q4H PRN (Reason: Pain) Rx Instructions: do not exceed 4 doses per 24 hrs Discharge Orders: Discharge Order (Routine); Ordered 12/01/23 Ordered By: Will Gunter Diet: Advance to usual diet Activity on Discharge: No heavy lifting Stand Alone Forms: Patient Portal Discharge page Print Language: Irish Activity Restrictions/Additional Instructions: Ice to wound 20 minutes several times today and tomorrow. May shower in 2 days. Remove outside dressing only. Leave Steri-Strips intact. No strenuous activities Care Plan Goals: goal is to relieve symptoms caused by gallstones or other gallbladder problems such as the infection and ultimately full recovery from the bacteremia and removal of the stent. Health Concerns: acute cholangitis e coli bacteremia Plan of Treatment: Take Cefurxomine 500 mg twice daily for 11 more days Radiology will contact you for an appointment regarding your drain and next change continue rehab for hip fracture Biliary drain- flush drain daily with 10 cc normal saline flush. If patient develops fevers or worsening abdominal pain, please attach the external drainage bag to his drain. (Patient was instructed on how to do this prior to discharge) Assessment: see above
[2023-12-01] MEDS: cefTRIAXone sodium 2 GM in 0.9 % Sodium Chloride 50 ML IV (10:35)
--- NOTE | 2023-12-01 11:01 | PM.EVENT ---
Event Note Date of Service: 12/01/23 Event Note: Seen and examined. Patient had lap cholecystectomy on Friday. Feels well currently. He remains afebrile and he left internal/external biliary drain continues to drain clear bile. His bilirubins continue to improve and are near normal. Discussed with Dr Sanchez. We decided to cap the biliary drain and allow him to drain naturally. I instructed the patient to flush his drain daily with 10 cc saline flush (flushes were given to him). I also gave him a new external bag and instructed him to attach the bag to his drain should he experience any new fevers, or worsening abdominal pain. Interventional Radiology will contact the patient for drain upsize in the upcoming weeks. Jacques MICHELE Interventional Radiology Time Spent With Patient Time: Total time managing care of this patient today ____ minutes.
[2023-12-01 11:32] VITALS: PULSE 88; O2SAT 97
--- NOTE | 2023-12-01 12:58 | MHC.CM.PN ---
Addendum entered by Jo-Ann Shoemaker RN 12/01/23 14:39: Auth obtained. S transport scheduled for 1630. RN, and patient aware. Original Note: Per MD rounds patient medically cleared for dc, return to [facility] pending PT eval and auth. PT eval completed and sent to [facility]. Awaiting auth. Patient aware. IMM delivered.
[2023-12-01 15:48] VITALS: BP 121/68; PULSE 84; RESP 18; TEMP 36.2; O2SAT 97
--- NOTE | 2023-12-01 17:33 | PC.NURSE ---
Pt to be discharged to SNF via BLS, narcotic pain medicine ordered for bedside delivery by [facility], Pharmacy made aware Pt not being discharged home and med will not be needed to be dispensed at bedside.
== END 2023-12-01 17:37 | disposition skilled nursing facility (03) | DRG 854 ==
LOC: HO.ED 19:36 → HO.EDOVER 21:08 → HO.S3 11-24 07:51
PROVIDERS: Internal Medicine; Internal Medicine Gastroenterology; Physician Assistant Surgical; Student in an Organized Health Care Education/Training Program; Surgery; Admitting Provider Student in an Organized Health Care Education/Training Program; Emergency Provider Emergency Medicine Emergency Medical Services; PCP Family Medicine Geriatric Medicine; Visit Provider Internal Medicine
PROC: 0DJ08ZZ Inspection of Upper Intestinal Tract, Via Natural or Artificial Opening Endoscopic (ICD-10-PCS; CPT 43260; principal; 2023-11-25 13:30)
PROC: 0F9930Z Drainage of Common Bile Duct with Drainage Device, Percutaneous Approach (ICD-10-PCS; principal; 2023-11-26 13:00)
PROC: 0FT44ZZ Resection of Gallbladder, Percutaneous Endoscopic Approach (ICD-10-PCS; CPT 47562; principal; 2023-11-28 11:30)
DX: A41.51 Sepsis due to Escherichia coli [E. coli] (principal); K80.33 Calculus of bile duct with acute cholangitis with obstruction; Z79.899 Other long term (current) drug therapy
CPT/HCPCS: 36415; 47533; 47538; 49406; 74177; 74181; 80048; 80053; 80076; 81001; 82105; 82248; 82378; 82947; 83605; 83690; 84145; 84484; 85007; 85025; 85027; 85610; 85730; 86301; 86704; 86706; 86709; 86803; 86850; 86900; 86901; 87040; 87077; 87186; 87205; 87340; 88304; 93005; 97162; 99152; 99153; 99285; C1729; C1769; C1887; C1892; C1894; J0131; J0696; J1100; J1170; J1650; J1885; J2270; J2371; J2405; J2543; J2704; J2795; J3010; Q9967

== ENCOUNTER → 2023-11-23 19:47 | Outpatient (BNV) | payer SELFPAY | PROVIDERS: Admitting Provider Student in an Organized Health Care Education/Training Program; Emergency Provider Emergency Medicine Emergency Medical Services; PCP Family Medicine Geriatric Medicine; Visit Provider Internal Medicine Cardiovascular Disease | DX: R94.31 Abnormal electrocardiogram [ECG] [EKG] (principal) | CPT/HCPCS: 93010 ==

== ENCOUNTER 2023-11-23 20:46 | Outpatient (BNV) | payer SELFPAY | END 2023-11-26 14:30 | PROVIDERS: Admitting Provider Student in an Organized Health Care Education/Training Program; Emergency Provider Emergency Medicine Emergency Medical Services; PCP Family Medicine Geriatric Medicine; Visit Provider Student in an Organized Health Care Education/Training Program | DX: K83.1 Obstruction of bile duct (principal) | CPT/HCPCS: 47538; 99152 ==

== ENCOUNTER → 2023-11-23 20:46 | Outpatient (BNV) | payer SELFPAY | PROVIDERS: Admitting Provider Student in an Organized Health Care Education/Training Program; Emergency Provider Emergency Medicine Emergency Medical Services; PCP Family Medicine Geriatric Medicine; Visit Provider Internal Medicine | DX: K80.30 Calculus of bile duct with cholangitis, unspecified, without obstruction (principal); K83.8 Other specified diseases of biliary tract | CPT/HCPCS: 43260; 99222; 99232 ==

== ENCOUNTER → 2023-11-23 20:46 | Outpatient (BNV) | payer SELFPAY | PROVIDERS: Admitting Provider Student in an Organized Health Care Education/Training Program; Emergency Provider Emergency Medicine Emergency Medical Services; PCP Family Medicine Geriatric Medicine; Visit Provider Internal Medicine | DX: K80.50 Calculus of bile duct without cholangitis or cholecystitis without obstruction (principal); K83.8 Other specified diseases of biliary tract | CPT/HCPCS: 99222 ==

== ENCOUNTER → 2023-11-23 20:46 | Outpatient (BNV) | payer SELFPAY | PROVIDERS: Admitting Provider Student in an Organized Health Care Education/Training Program; Emergency Provider Emergency Medicine Emergency Medical Services; PCP Family Medicine Geriatric Medicine; Visit Provider Physician Assistant Surgical | DX: K83.09 Other cholangitis (principal); K80.50 Calculus of bile duct without cholangitis or cholecystitis without obstruction | CPT/HCPCS: 47562; 99024; 99222; 99232 ==

== ENCOUNTER → 2023-11-23 20:46 | Outpatient (BNV) | payer SELFPAY | PROVIDERS: Admitting Provider Student in an Organized Health Care Education/Training Program; Emergency Provider Emergency Medicine Emergency Medical Services; PCP Family Medicine Geriatric Medicine; Visit Provider Internal Medicine | DX: Z90.49 Acquired absence of other specified parts of digestive tract (principal) | CPT/HCPCS: 99223; 99232; 99233; 99239 ==

== ENCOUNTER 2023-12-10 14:25 | Outpatient (AMB) | payer SELFPAY ==
--- NOTE | 2023-12-10 14:40 | A.OFFVIS_ITS ---
Vital Signs 12/10/23 14:45 Height 6 ft 9 in Weight 185 lb BMI 19.8 BP 117/75 Blood Pressure Location Lt brachial Position Sitting Pulse 82 Intake Visit Reasons: cholecystectomy Intake Note: Patient is seen in office for post op assessment post cholecystectomy. Patient c/o: is all done with antbx, and if possible would like a pain med refill, still gets sharp pain in the area, needs a refill on the saline to wash out tube Brim Stiffener Required: No Accompanied by: Self / Same As Patient Allergies No Known Allergies Allergy (Verified 12/10/23 14:47) HPI Comments Details: Patient is status post laparoscopic cholecystectomy as well as attempted ERCP and then IR drainage of his extrahepatic biliary system. Patient is to be discharged tomorrow from his extended care facility. He has tolerating a diet. Having regular bowel habits. He has incisional discomfort which is improving. Drain is intact with bilious output [facility] Medical History (Updated 12/09/23 @ 00:02 by Vickie Flanagan) Closed right hip fracture Surgical History S/P laparoscopic cholecystectomy (11/28/23) History of appendectomy Social History Household Members: None Household Members Other:: at rehab facility Housing: Care Home Do you presently have visiting nurse or other home services: No Alcohol intake: former Comment: Refusing bed in lowest position. Patient Tobacco Use Status: Never used Tobacco service: No Physical Exam Vital Signs: Last Vital Signs Pulse 82 12/10/23 14:45 BP 117/75 12/10/23 14:45 BMI result Body Mass Index 19.8 Eyes Other: Anicteric, much improved from recent hospitalization GI Other: Abdomen is soft. All surgical wounds clean dry and intact healing very well. IR drain intact Assessment & Plan Assessment & Plan (1) S/P laparoscopic cholecystectomy: Onset Date: 11/28/23 Comment: Dr. Dionicio Miller Code(s): Z90.49 - Acquired absence of other specified parts of digestive tract Category: Surgical (2) Postop check: Code(s): Z09 - Encounter for follow-up examination after completed treatment for conditions other than malignant neoplasm Category: Surgical Plan From a surgical perspective, patient doing very well. He would like a renewal of his pain med which will Eugenia. Patient also needs to be seen by Dr. Melendrez and arrangements will be made for that for him. Patient will otherwise follow- up with me p.r.n.. All questions answered. Coding Level of Care Code Global (15984) Diagnoses S/P laparoscopic cholecystectomy Z90.49 Postop check Z09
[2023-12-10 14:45] VITALS: BP 117/75; PULSE 82; BMI 19.8
== END 2023-12-10 15:03 | disposition home or self-care (01) ==
LOC: HO.HGS 14:25
PROVIDERS: PCP Family Medicine Geriatric Medicine; Visit Provider Surgery
DX: Z90.49 Acquired absence of other specified parts of digestive tract (principal); Z09 Encounter for follow-up examination after completed treatment for conditions other than malignant neoplasm
CPT/HCPCS: 99024

== ENCOUNTER → 2023-12-10 14:25 | Outpatient (BNVA) | payer SELFPAY | PROVIDERS: PCP Family Medicine Geriatric Medicine; Visit Provider Surgery | DX: Z09 Encounter for follow-up examination after completed treatment for conditions other than malignant neoplasm (principal); Z87.19 Personal history of other diseases of the digestive system | CPT/HCPCS: 99212 ==

== ENCOUNTER 2023-12-16 10:51 | Day surgery (SDC) | payer MEDICARE, SELFPAY ==
--- NOTE | ~2023-12-16 | IR_ITS ---
CLINICAL HISTORY: 68-year-old man with a biliary obstruction due to choledocholithiasis status post left internal/external drainage catheter placed on 11/26/2023. He presents today for drain upsize in preparation for upcoming biliary endoscopy.. PROCEDURES: 1. Fluoroscopic upsize of the left internal/external biliary drain to 10 Fr 2. Cholangiogram CLINICIAN: Jacques Hyatt PA-C MEDICATIONS: - Versed 2 mg, Fentanyl 100 mcg, Lidocaine 1% 10 mL SQ -Antibiotics: Rocephin 1 g -For additional details, please see nursing flowsheet. Complications: None. Estimated blood loss: <5 ml Specimens: None. Contrast: None. Fluoroscopy time: 2.2 min MODERATE SEDATION TIME: 15 min PROCEDURE NOTE: The procedure, risks, benefits, and alternatives were carefully explained to the patient and written informed consent was obtained. The patient was placed supine on the fluoroscopy table. A timeout was performed. The abdomen was prepped and draped in usual sterile fashion. Maximum barrier technique was utilized. Local anesthesia was administered around left internal/external drain with 1% lidocaine. The catheter was cut, and a 0.035 Amplatz wire was advanced through the tube into the duodenum. The catheter was removed over the wire. An 8 Zimbabwean sheath was placed over the wire and a clinically was performed, which demonstrated a persistent biliary obstruction and persistent large common bile duct stone. The sheath was removed over the wire. Over the wire, a new 10 Zimbabwean internal/external biliary drain was placed. The tip of the catheter was coiled in the duodenum. A contrast injection demonstrated the sideholes in adequate position with filling of the duodenum. The catheter was flushed. The drain was secured to skin with a 2-0 nylon suture. A dry dressing was applied. The patient was stable after the procedure and was transferred to the PACU. The procedure was performed under moderate sedation and with a dedicated nurse with continuous monitoring of vital signs. A fluoroscopic image of the abdomen was saved and sent to PACS. IR/IR Biliary Drainage Exchange IMPRESSION: Left internal/external biliary drain upsize to 10 Zimbabwean. Biliary obstruction still persists due to a known large common bile duct stone. Patient will return in 2 weeks for upsize of the drain to 12 Zimbabwean. PLAN: - The patient will be discharged home when stable by sedation protocol. This procedure was performed by Jacques Hyatt PA-C, and directly supervised by Dr. Sanchez
[2023-12-16 11:14] VITALS: BP 131/89; PULSE 84; RESP 16; TEMP 36.2; O2SAT 98
[2023-12-16 11:15] VITALS: BMI 20.4
[2023-12-16 14:38] VITALS: BP 136/77; PULSE 66; RESP 18; TEMP 36.6; O2SAT 97
[2023-12-16 14:50] VITALS: BP 134/83; PULSE 59; RESP 16; TEMP 36.6; O2SAT 97
[2023-12-16] MEDS: oxyCODONE HCl Immed Release 5 MG TABLET PO (15:03)
== END 2023-12-16 15:08 | disposition home or self-care (01) ==
PROVIDERS: Student in an Organized Health Care Education/Training Program; PCP Family Medicine Geriatric Medicine; Visit Provider Physician Assistant Surgical
DX: K80.51 Calculus of bile duct without cholangitis or cholecystitis with obstruction (principal); Z90.49 Acquired absence of other specified parts of digestive tract
CPT/HCPCS: 47536; 47538; 99152; C1729; J0690; J2250; J2310; J3010; Q4186; Q9967

== ENCOUNTER → 2023-12-16 14:30 | Outpatient (BNV) | payer SELFPAY | PROVIDERS: PCP Family Medicine Geriatric Medicine; Visit Provider Physician Assistant Surgical | DX: K80.00 Calculus of gallbladder with acute cholecystitis without obstruction (principal) | CPT/HCPCS: 47536; 47538; 99152 ==

== ENCOUNTER 2023-12-31 10:54 | Day surgery (SDC) | payer SELFPAY ==
[2023-12-31] VITALS (8 sets, daily range): BP systolic 94–118; BP diastolic 63–75; PULSE 75–86; RESP 16–18; TEMP 36.2–36.6; O2SAT 97–99; BMI 18.6
--- NOTE | ~2023-12-31 | IR_ITS ---
CLINICAL HISTORY: 68-year-old man with a biliary obstruction due to choledocholithiasis status post left internal/external drainage catheter placed on 11/26/2023. He presents today for drain upsize in preparation for upcoming biliary endoscopy.. PROCEDURES: 1. Fluoroscopic upsize of the left internal/external biliary drain to 12 Fr 2. Cholangiogram MEDICATIONS: - Versed 3 mg, Fentanyl 150 mcg, Lidocaine 1% 10 mL SQ -For additional details, please see nursing flowsheet. Complications: None. Estimated blood loss: <5 ml Fluoroscopy time: 2.2 min MODERATE SEDATION TIME: 22 min PROCEDURE NOTE: The procedure, risks, benefits, and alternatives were carefully explained to the patient and written informed consent was obtained. The patient was placed supine on the fluoroscopy table. A timeout was performed. The abdomen was prepped and draped in usual sterile fashion. Maximum barrier technique was utilized. Local anesthesia was administered around left internal/external drain with 1% lidocaine. A cholangiogram was performed, which demonstrated a persistent biliary obstruction and persistent large common bile duct stone. The catheter was cut, and a 0.035 Amplatz wire was advanced through the tube into the duodenum. The catheter was removed over the wire. The sheath was removed over the wire. Over the wire, a new 12 Czech internal/external biliary drain was placed. The tip of the catheter was coiled in the duodenum. A contrast injection demonstrated the sideholes in adequate position with filling of the duodenum. The catheter was flushed. The drain was secured to skin with a 3-0 nylon suture. A dry dressing was applied. The patient was stable after the procedure and was transferred to the PACU. The procedure was performed under moderate sedation and with a dedicated nurse with continuous monitoring of vital signs. A fluoroscopic image of the abdomen was saved and sent to PACS. IR/IR drain peritoneum IMPRESSION: Left internal/external biliary drain upsize to 12 Czech. Biliary obstruction still persists due to a known large common bile duct stone. Patient will return in 2-4 weeks for stone removal. PLAN: - The patient will be discharged home when stable by sedation protocol.
--- NOTE | 2023-12-31 13:15 | MHC.SHP ---
Pre-Procedural Eval Section A - 24 Hr Update-Section A only Date of Service: 12/31/23 Section B - Complete if H&P > 30 days Chief Complaint: CHOLEDOCHOLITHIASIS Details of Present Illness: 68 y/o man with biliary obstruction from choledocholithiasis s/p left int/ext biliary drain. He presents for upsize prior to biliary endoscopy. Relevant Family History (Specify if Yes): No Relevant Social History: None Present Medications: see Short Stay Collaborative assessment Medical History: Significant History History of Previous Operations: Relevant previous surgery/procedure and date(s) Allergies: Allergies Allergy/AdvReac Type Severity Reaction Status Date / Time No Known Allergies Allergy Verified 12/16/23 11:15 Review of Systems Sugical H&P ROS: Negative: Cardiovascular, Respiratory, Gastrointestinal and Integumentary Exam Surgical H&P Exam: Normal: Heart, Normal: Lungs and Normal: Skin, Not Evaluated: HEENT and Significant Findings: Abdomen (left biliary drain- capped) Plan Biliary drain upsize Time Spent With Patient Time: Total time managing care of this patient today ____ minutes.
[2023-12-31] MEDS: Acetaminophen 325 MG TABLET 650 MG PO (14:45)
[2023-12-31] MEDS: oxyCODONE HCl Immed Release 5 MG TABLET PO (14:48)
== END 2023-12-31 15:30 | disposition home or self-care (01) ==
PROVIDERS: PCP Family Medicine Geriatric Medicine; Visit Provider Physician Assistant Surgical
DX: K80.51 Calculus of bile duct without cholangitis or cholecystitis with obstruction (principal); Z90.49 Acquired absence of other specified parts of digestive tract
CPT/HCPCS: 47536; 49406; 99152; C1729; J0696; J2250; J2310; J3010; Q9967

== ENCOUNTER → 2023-12-31 13:00 | Outpatient (BNV) | payer SELFPAY | PROVIDERS: PCP Family Medicine Geriatric Medicine; Visit Provider Student in an Organized Health Care Education/Training Program | DX: K80.50 Calculus of bile duct without cholangitis or cholecystitis without obstruction (principal) | CPT/HCPCS: 47536; 99152 ==

== ENCOUNTER → 2024-02-04 11:19 | Outpatient (BNV) | payer SELFPAY | PROVIDERS: PCP Family Medicine Geriatric Medicine; Visit Provider Internal Medicine | DX: Z09 Encounter for follow-up examination after completed treatment for conditions other than malignant neoplasm (principal) | CPT/HCPCS: 99222; 99238 ==

== ENCOUNTER → 2024-02-04 14:33 | Outpatient (BNV) | payer SELFPAY | PROVIDERS: Admitting Provider Internal Medicine; PCP Family Medicine Geriatric Medicine; Visit Provider Student in an Organized Health Care Education/Training Program | DX: K80.51 Calculus of bile duct without cholangitis or cholecystitis with obstruction (principal) | CPT/HCPCS: 47554 ==

== ENCOUNTER → 2024-02-04 17:55 | Outpatient (BNV) | payer SELFPAY | PROVIDERS: Admitting Provider Internal Medicine; PCP Family Medicine Geriatric Medicine; Visit Provider Internal Medicine Cardiovascular Disease | DX: R94.31 Abnormal electrocardiogram [ECG] [EKG] (principal) | CPT/HCPCS: 93010 ==

== ENCOUNTER 2024-02-04 18:00 | Observation (INO) | payer SELFPAY ==
[2024-01-29 10:24] VITALS: BMI 19.8
[2024-02-04] VITALS (11 sets, daily range): BP systolic 90–107; BP diastolic 42–74; PULSE 76–97; RESP 16–20; TEMP 36.6–37.8; O2SAT 91–99
--- NOTE | 2024-02-04 | ECG_ITS ---
Test Reason : abnormal rythym intraop Blood Pressure : / mmHG Vent. Rate : 085 BPM Atrial Rate : 000 BPM P-R Int : 000 ms QRS Dur : 080 ms QT Int : 338 ms P-R-T Axes : 000 -04 077 degrees QTc Int : 402 ms Poor data quality in current ECG precludes serial comparison Normal sinus rhythm with Premature atrial complexes Low voltage QRS Nonspecific ST and T wave abnormality Abnormal ECG No previous ECGs available Repeat EKG Referred By: Angelo Pena Electronically Signed By:TERRENCE LORA MD
--- NOTE | ~2024-02-04 | IR_ITS ---
Procedures: 1. Percutaneous Cholangioscopy 2. Cholangiogram 3. Biliary stone lithotripsy and stone retrieval 4. sphincteroplasty 5. Biliary catheter exchange CLINICAL INFORMATION: Choledocholithiasis. Biliary obstruction. 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 Since that time, the drainage catheter has been serially upsized in preparation for today's procedure. COMPARISON: CT abdomen and pelvis 11/23/2023. MRCP 11/24/2023. Biliary drainage 11/26/2023 Sedation: General anesthesia, please see separately dictated notes from anesthesia DOSE: 170 MGY, 18 MIN FT TECHNIQUE/FINDINGS: Informed consent was obtained following a discussion of risks and benefits of the procedure with the patient. The patient was placed supine on the fluoroscopy/OR table and the indwelling left approach biliary drainage catheter and surrounding skin was sterilely prepped and draped. Cholangiogram demonstrates mild intrahepatic biliary ductal dilatation with moderate -severe dilatation of the common bile duct. A filling defect is seen in concordance with known stone. The gallbladder is surgically absent. The catheter hub was cut. The catheter was removed over a 0.035 Amplatz wire. A 14 Trinidadian sheath was placed. A 0.018 command wire was inserted and tandem with the Amplatz wire to serve as a safety wire. The sheath was removed over both wires and then placed back over just the Amplatz wire. A 10.5 Trinidadian CodeSealer spyglass scope was inserted through the sheath and positioned within the common bile duct. Cholangioscopy was performed which demonstrates the stone. No additional stones are identified. Laser lithotripsy of the stone was performed utilizing an EHL wire which effectively fragmented the stone into innumerable small pieces. Sphincteroplasty of the ampulla was performed first with a 6 mm balloon and then with a 8 mm balloon. Some of the fragments were able to be swept across the ampulla with the 6 mm balloon. This balloon was markedly under size given the diameter of the common bile duct. We did attempt balloon sweeps with a 5.5 Trinidadian Osmani balloon however, this was unable to effectively pass across the ampulla. We exchanged the sheath for a 14 Trinidadian pigtail catheter which was positioned in the common bile duct. We irrigated and aspirated through the catheter with numerous stone fragments removed. We repeated this numerous times until the aspirate somewhat cleared. We exchanged the catheter back through the sheath. Cholangioscopy demonstrates persistent stone fragments. We removed a few of the larger fragments utilizing a basket retrieval system. At this point, we elected to exchange back for an internal/external drainage catheter sutured in place for the next few weeks for continued drainage of the stones as well as to address likely persistent stricture at the ampulla. The sheath was exchanged for a 12 Trinidadian internal-external biliary drainage catheter was placed. The pigtail was formed in the duodenum with sideholes extending across the common bile duct to the level of the confluence. Contrast injection confirms satisfactory positioning of the tube. The external portion of the tube was secured with a 3-0 suture. The catheter was maintained to gravity bag drainage. A sterile dressing was applied. Patient tolerated the procedure well with no immediate complications. IR/IR Endoscopy CBD Stone Removal IMPRESSION: Cholangiogram and cholangioscopy demonstrating ductal dilatation with stricture at the level of the ampulla and 2 cm stone within the common bile duct. Laser lithotripsy of the stone was performed. Sphincteroplasty was performed up to 8 mm. Stone fragments were aspirated, swept into the duodenum and retrieved. 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 PLAN: Maintained catheter to gravity bag drainage for 2 weeks to allow for continued passage of stone fragments. At that time, a capping trial may be attempted. Given the likely persistent stricture and potential for residual stones, a repeat cholangiogram with possible cholangioscopy/plasty/catheter up size should ideally be performed. Patient is relocating to [facility] and expressed desire to transition his care to someone in that region. We will do our best to facilitate the transfer of care.
--- NOTE | 2024-02-04 13:32 | MHC.SHP ---
Pre-Procedural Eval Section A - 24 Hr Update-Section A only Date of Service: 02/04/24 Section B - Complete if H&P > 30 days Chief Complaint: OR-CHOLEDOCHOLITHIASIS Details of Present Illness: 68 y/o man with biliary obstruction due to choledocholithiasis s/p left internal/external biliary drainage. He presents for biliary endoscopy and stone removal. Relevant Family History (Specify if Yes): No Relevant Social History: None Present Medications: see Short Stay Collaborative assessment Medical History: Significant History History of Previous Operations: Relevant previous surgery/procedure and date(s) (Left internal/external biliary drainage- 12 fr) Allergies: Allergies Allergy/AdvReac Type Severity Reaction Status Date / Time No Known Allergies Allergy Verified 12/16/23 11:15 Review of Systems Sugical H&P ROS: Negative: Cardiovascular and Respiratory and Yes, Specify: Gastrointestinal (discomfort at biliary drain) Exam Surgical H&P Exam: Normal: Heart, Normal: Lungs, Normal: Abdomen (soft, ttp at biliary drain site. No drainage), Normal: Skin (dressing c/d/i) and Normal: Neurological Plan Diagnosis/Plan: Unchanged 68 y/o man with biliary obstruction due to choledocholithiasis s/p left internal/external biliary drainage. -Biliary endoscopy and stone removal, drain replacement Time Spent With Patient Time: Total time managing care of this patient today ____ minutes.
--- NOTE | 2024-02-04 13:46 | P.CONAN_ITS ---
HPI - Anesthesia Eval Consult details Narrative: 68 yo M presenting for ERCP with Spyglass. Hx of obstructive biliary disease secondary to choledocholithiasis s/p biliary drain. PMFSH Active Problems Active Problems: All Active Problems Postop check (Acute) Dilated cbd, acquired (Acute) Biliary disease with obstruction (Acute) S/P laparoscopic cholecystectomy (Acute 11/28/23) Past Medical History Medical History Closed right hip fracture Family History Family history of problems with anesthesia: No Surgical History Surgical History (Updated 01/29/24 @ 10:24 by Mehnaz Martin RN) History of ERCP History of hip surgery S/P laparoscopic cholecystectomy (11/28/23) History of appendectomy History of Problems with Anesthesia: No Social History Social History Household Members: None Household Members Other:: at rehab facility Housing: Intermediate Are you a primary hospice patient care secretary to a significant other at home: No Do you presently have visiting nurse or other home services: No Alcohol intake: former Comment: using walker due to hip fracture repair 10/2023 Patient Tobacco Use Status: Former Tobacco user Tobacco use type: Cigarette Use of substances other than those prescribed or required for medical reasons: No Have you been hit, kicked, punched, or otherwise hurt by someone within the past year? If so, by whom?: No Are you DNR?: No Advance Directives: No (daughter is primary contact) Advance Directives Information Provided: Yes (as above noted) Advance Directives on File: No Recently lost weight without trying: No Eating poorly because of decreased appetite: No Nutrition Risks: No Nutritional Risk Poor oral hygiene: No service: No Meds Allergies Allergy/AdvReac Type Severity Reaction Status Date / Time No Known Allergies Allergy Verified 12/16/23 11:15 Exam Exam Date and Time: February 04, 2024 1345 Height,Weight and Vital Signs: Height 6 ft 9 in Weight 83.915 kg Last Vital Signs Temp 100.0 F 02/04/24 12:43 Pulse 88 02/04/24 12:43 Resp 16 02/04/24 12:43 BP 96/74 02/04/24 12:43 Pulse Ox 99 02/04/24 12:43 O2 Del Method Room Air 02/04/24 12:43 Airway Mallampati Class: II TM Dist: >3cm Neck ROM: Full Loose/Missing/Broken Teeth: Yes (very poor dentition) Heart: S1S2 Lungs: CTAB Assessment and Plan Assessment Anesthesia Assessment: Anesthesia Plan Discussed and Chart Reviewed Final Anesthetic Review Family History of Problems with Anesthesia: No History of Problems with Anesthesia: No NPO: Yes ASA Class: III Final Preanesthetic Review: No Changes in Pt Med Stat, Meds/Allgs Chart Reviewed, Consent Obtained/Reviewed and Anes Risks/Benef Reviewed Patient Risk: Intermediate Procedure Risk: Intermediate Anesthetic Plan Anesthetic Plan: GA and Agree w/ Assess. and Plan Disposition: Standard PACU
[2024-02-04] MEDS: HYDROmorphone HCl 1 MG/ML SYRINGE IVPUSH ×2 (18:01→20:30)
--- NOTE | 2024-02-04 18:02 | P.HPHOSP_ITS ---
History of Present Illness Date of Service: 02/04/24 Chief Complaint: post op pain 68M PMH biliary stone, cervical neck fracture with mild residual right hemiplegia, underwent biliary drain placement in november 2023 by IR for obstructing biliary stone. on day of presentation underwent laser of stone, and left drain in for residual debris. plan to return in a couple weeks for removal. post procedure paitent with significant pain requiring iv opiates, therefore, requested to monitor and treat overnight for better pain control. denies sob, fever, chills Review of Systems Review of Systems: Yes all other systems are reviewed and are negative [facility] Medical History Closed right hip fracture Surgical History History of ERCP History of hip surgery S/P laparoscopic cholecystectomy (11/28/23) History of appendectomy Social History Household Members: None Household Members Other:: at rehab facility Housing: Group Home Are you a primary healthcare market consultant to a significant other at home: No Do you presently have visiting nurse or other home services: No Alcohol intake: former Comment: using walker due to hip fracture repair 10/2023 Patient Tobacco Use Status: Former Tobacco user Tobacco use type: Cigarette Use of substances other than those prescribed or required for medical reasons: No Have you been hit, kicked, punched, or otherwise hurt by someone within the past year? If so, by whom?: No Are you DNR?: No Advance Directives: No (daughter is primary contact) Advance Directives Information Provided: Yes (as above noted) Advance Directives on File: No Recently lost weight without trying: No Eating poorly because of decreased appetite: No Nutrition Risks: No Nutritional Risk Poor oral hygiene: No service: No Meds Allergies Allergy/AdvReac Type Severity Reaction Status Date / Time No Known Allergies Allergy Verified 12/16/23 11:15 Active Medications: Current Medications Acetaminophen (Acetaminophen 325 Mg Tablet) 650 mg PO Q6H PRN PRN Reason: Pain, Mild (Pain Scale 1-3), fever or headache Calcium Carbonate (Calcium Carbonate 750 Mg Tab.Chew) 750 mg PO Q4H PRN PRN Reason: Heartburn Enoxaparin Sodium (Enoxaparin Sodium 40 Mg/0.4 Ml Syringe) 40 mg SUBCUT Q24H COUNTS INCLUDE 234 BEDS AT THE [facility] Fentanyl (Fentanyl Citrate/Pf 100 Mcg/2 Ml Vial) 25 mcg IVPUSH Q5M PRN PRN Reason: Pain, Moderate(Pain Scale 4-6) Stop: 02/04/24 19:54 Hydromorphone HCl (Hydromorphone Hcl 1 Mg/Ml Syringe) 1 mg IVPUSH Q5M PRN; Protocol PRN Reason: Pain, Moderate(Pain Scale 4-6) Last Admin: 02/04/24 18:01 Dose: 1 mg Magnesium Hydroxide (Milk Of Magnesia 30 Ml Oral.Susp) 30 ml PO DAILY PRN PRN Reason: Constipation Melatonin (Melatonin 3 Mg Tablet) 6 mg PO BEDTIME PRN PRN Reason: Insomnia Sodium Chloride (0.9 % Sodium Chloride Flush 3 Ml Syringe) 3 ml IVFLUSH QSHIFT ODELL Physical Exam Vital Signs and Narrative: Vital Signs: Last Vital Signs Temp 100.0 F 02/04/24 12:43 Pulse 88 02/04/24 12:43 Resp 20 02/04/24 18:01 BP 96/74 02/04/24 12:43 Pulse Ox 99 02/04/24 12:43 O2 Del Method Room Air 02/04/24 12:43 BMI result Body Mass Index 19.8 General: AO X 3, no acute distress, temporal wasting Resp: CTA bilateral, no accessory muscles used CVS: S1,S2,RRR GI: soft, non tender, non distended, biliary drain in place Neuro: mild right hemiparesis, alert Psych: appropriate affect, appropriate insight Assessment and Plan (1) Postop check: Status: Acute Plan 68M PMH biliary stone, cervical neck fracture with mild residual right hemiplegia presented with postprocedure pain postprocedure pain dilaudid 1mg q2h prn, monitor follow up IR dvt prophylaxis - lovenox full code Quality Stroke Does the patient have a stroke diagnosis?: No VTE Prior VTE?: No VTE Risk Level:: Medical - moderate - high VTE Device Contraindication: Treatment Not Indicated VTE Drug Contraindication: N/A - Med Ordered
--- NOTE | 2024-02-04 19:47 | PHA.MEDREC ---
Pharmacy Consult ? Medication Reconciliation Pharmacy has completed the medication reconciliation.
[2024-02-04] MEDS: 0.9 % Sodium Chloride Flush 3 ML SYRINGE IVFLUSH (20:30)
[2024-02-05] MEDS: HYDROmorphone HCl 1 MG/ML SYRINGE IVPUSH ×4 (00:15→11:43)
[2024-02-05 03:47] VITALS: BP 128/62; PULSE 81; RESP 20; TEMP 36.6; O2SAT 96
[2024-02-05 07:40] VITALS: BP 106/64; PULSE 68; RESP 18; TEMP 36.8; O2SAT 98
[2024-02-05] MEDS: Enoxaparin Sodium 40 MG/0.4 ML SYRINGE SUBCUT (07:53)
[2024-02-05] MEDS: 0.9 % Sodium Chloride Flush 3 ML SYRINGE IVFLUSH (08:03)
--- NOTE | 2024-02-05 08:11 | HO.POSTANES ---
Post Anesthesia Evaluation Post Anesthesia Evaluation Date of Service: 02/04/24 Vital Signs: Vital Signs Temp Pulse Resp BP Pulse Ox O2 Del Method O2 Flow Rate 02/05/24 07:40 98.2 F 68 18 106/64 98 Room Air 02/05/24 03:47 97.9 F 81 20 128/62 96 Room Air 3 Anesthesia: General Endotracheal-GETA and General Mental Status: Awake Pain Control: Satisfactory (pain from movement and pre existing hip issues.) Nausea/Vomiting: None Hydration: Adequate Anesthesia-Related Issues: No Anes. Related Issues
--- NOTE | 2024-02-05 08:53 | MHC.CM.PN ---
Addendum entered by Sintia Carrion 02/05/24 09:00: Patient is listed as self-pay; a referral has been sent to [facility]. Original Note: CM met with Patient at bedside and addressed MALONE with him, providing Patient with the original and a copy has been placed on the chart. 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 Patient will dc to his Daughter's home in [place] at time of dc.Home/self care is the goal and CM has initiated and will follow for dc planning. Patient has not yet seen his new PCP/Dr. Rosy Dahl.
--- NOTE | 2024-02-05 11:08 | PM.DS ---
DS: Providers Provider Date of Service: 02/05/24 Date of admission: 02/04/24 18:00 Primary care physician: Rosy Dahl MD DS: Diagnosis Discharge Diagnosis (1) Postop check: Status: Acute DS: Summary Hospital Course Hospital Course: from initial hpi: 68M PMH biliary stone, cervical neck fracture with mild residual right hemiplegia, underwent biliary drain placement in november 2023 by IR for obstructing biliary stone. on day of presentation underwent laser of stone, and left drain in for residual debris. plan to return in a couple weeks for removal. post procedure paitent with significant pain requiring iv opiates, therefore, requested to monitor and treat overnight for better pain control. denies sob, fever, chills hospital course: Patient was admitted for postprocedural pain. He was treated with Dilaudid and symptoms became better controlled on discharge will be given a few days of oxycodone 5 mg and will follow up with Interventional Radiology. Time Attestation Discharge Coordination Time (in mins): 12 Quality: Safe Use of Opioids Does Pt have an Active Cancer Diagnosis on the Problem List?: No Quality: Stroke Does the patient have a stroke diagnosis?: No Physical Exam Vital Signs: Vital Signs: Last Vital Signs Temp 98.2 F 02/05/24 07:40 Pulse 68 02/05/24 07:40 Resp 18 02/05/24 07:40 BP 106/64 02/05/24 07:40 Pulse Ox 98 02/05/24 07:40 O2 Del Method Room Air 02/05/24 07:40 O2 Flow Rate 3 02/05/24 03:47 BMI result Body Mass Index 19.8 General: AO X 3, no acute distress, temporal wasting Resp: CTA bilateral, no accessory muscles used CVS: S1,S2,RRR GI: soft, non tender, non distended, biliary drain in place Neuro: mild right hemiparesis, alert Psych: appropriate affect, appropriate insight DS: Data Data Completed and Pending Completed studies during hospitalization [Text1]: Procedures Drainage of Common Bile Duct with Drainage Device, Percutaneous Approach (11/23/23) Inspection of Upper Intestinal Tract, Via Natural or Artificial Opening Endoscopic (11/23/23) Resection of Gallbladder, Percutaneous Endoscopic Approach (11/23/23) Discharge Plan Discharge Anticipated Discharge Date/Time: 02/05/24 11:06 Patient Disposition: Home, Self-Care Discharge Diagnosis: post op pain Referrals: Rosy Dahl MD [Primary Care Provider] - 1 Week Discharge Medications: New oxycodone 5 mg tablet 5 mg PO Q4H PRN (Reason: moderate pain (scale score 5-6)) Qty: 20 0RF Rx Instructions: Partial Fill upon patient request. Continued acetaminophen [Tylenol Extra Strength] 500 mg Tablet 500 mg PO Q6H PRN (Reason: Pain) Discharge Orders: Discharge Order (Routine); Ordered 02/05/24 Ordered By: Roberto Branch Diet: Advance to usual diet Activity on Discharge: As tolerated Stand Alone Forms: Patient Portal Discharge page Print Language: Romanian Care Plan Goals: recovery Health Concerns: biliary drain, pain Plan of Treatment: oxy for pain, watch for constipation, follow up with radiology Assessment: see above
--- NOTE | 2024-02-05 11:19 | MHC.CM.PN ---
Patient has been medically cleared for dc to home today, self care.
[2024-02-05 11:29] VITALS: BP 126/61; PULSE 80; RESP 18; TEMP 36.9; O2SAT 99
== END 2024-02-05 12:45 | disposition home or self-care (01) ==
LOC: HO.SSSA 18:32 → HO.IMC 18:41
PROVIDERS: Student in an Organized Health Care Education/Training Program; Admitting Provider Internal Medicine; PCP Family Medicine Geriatric Medicine; Visit Provider Internal Medicine
PROC: (CPT 43260; principal; 2024-02-04 13:40)
DX: K83.1 Obstruction of bile duct (principal); K91.86 Retained cholelithiasis following cholecystectomy; G89.18 Other acute postprocedural pain; G81.90 Hemiplegia, unspecified affecting unspecified side; R94.31 Abnormal electrocardiogram [ECG] [EKG]; Z90.49 Acquired absence of other specified parts of digestive tract; Z09 Encounter for follow-up examination after completed treatment for conditions other than malignant neoplasm
CPT/HCPCS: 47554; 93005; 96372; 96374; 96376; 99222; C1725; C1726; C1729; C1769; C1887; C1889; C1894; J0696; J1100; J1170; J1610; J1650; J2704; J3010; Q9967